=== PATIENT | male | born 1940 | race Caucasian/White ===

== ENCOUNTER 2017-06-10 11:43 | Emergency (ER) | payer OTHER ==
[2017-06-10] MEDS ORDERED: Triple Antibiotic Oint 1 GM Packet ONE (12:44)
== END 2017-06-10 13:05 | disposition home or self-care (01) ==
LOC: NAV ERS 11:43
DX: S61.217A Laceration without foreign body of left little finger without damage to nail, initial encounter (principal); I10 Essential (primary) hypertension; E11.9 Type 2 diabetes mellitus without complications; J45.909 Unspecified asthma, uncomplicated; F41.9 Anxiety disorder, unspecified; F31.9 Bipolar disorder, unspecified; W26.9XXA Contact with unspecified sharp object(s), initial encounter
CPT/HCPCS: 12001

== ENCOUNTER 2019-06-03 20:28 | Emergency (ER) | payer MEDICARE, OTHER ==
[2019-06-03 21:39] LABS: #Basophils 0.1 thou/uL (0.0-0.2); #Eosinphils 0.4 thou/uL (0.0-0.7); #Lymphocytes 1.4 thou/uL (1.20-3.40); #Neutrophils 9.9 thou/uL (1.40-6.50); %Basophils 0.7 % (0.0-1.0); %Eosinophils 3.4 % (0.0-10.0); %Lymphocytes 10.7 % (21.0-51.0); %Neutrophils 77.2 % (42.0-75.0); Hemoglobin 11.9 g/dL (14.0-18.0); Mean Corpuscular HGB CONC 31.8 g/dL (32.0-36.0); Mean Corpuscular Hemoglobin 30.8 pg (27.0-31.0); Mean Corpuscular Volume 96.9 fL (78.0-98.0); Mean Platelet Volume 8.8 fL (7.4-10.4); Platelet Count 147 thou/uL (130-400); RBC Distribution Width 13.1 % (11.5-14.5); Red Blood Cell (RBC) Count 3.86 mill/uL (4.70-6.10); White Blood Cell (WBC) Count 12.9 thou/uL (4.8-10.8)
--- NOTE | 2019-06-03 21:46 | RAD ---
AP view of the pelvis INDICATION: Fall with left inguinal pain COMPARISON: None. FINDINGS: Bones: No acute fracture or subluxation is evident. Bone mineralization appears within normal limits. 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 There is enthesopathic change off the acetab ulum bilaterally. There is mild enthesopathic change off the greater trochanters. SI joints and symphysis pubis: Normal appearing. Intrapelvic contents: Within normal limits. IMPRESSION: No acute osseous abnormality.
--- NOTE | 2019-06-03 21:47 | RAD ---
XR Hip Lt 2-3 View INDICATION: Left hip pain after fall COMPARISON: None FINDINGS: Bones: No acute osseous abnormality. Bone mineralization appears within normal limits. Hip joint: There is moderate degenerative change of the left hip. There is enthesopathic change off t he left acetabulum and left greater trochanter. SI joints and symphysis pubis: Radiographically normal. Intrapelvic contents: Visualized bowel gas pattern is within normal limits. Surrounding soft tissues: Radiographically normal. IMPRESSION: 1. No acute osseous abnormality.
[2019-06-03] MEDS ORDERED: Sodium Chloride 0.9% 1,000 ML ONE (21:49)
[2019-06-03] MEDS ORDERED: Ondansetron PF 4 MG/2 ML Vial ONE (21:49)
[2019-06-03] MEDS ORDERED: Morphine 4 MG/ML VIAL ONE (21:49)
[2019-06-03 21:53] LABS: ALT (SGPT) 17 U/L (8-55); AST (SGOT) 21 U/L (5-34); Alkaline Phosphatase 106 U/L (40-150); Anion Gap 14 mmol/L (10-20); BUN (Urea Nitrogen) 44 mg/dL (8.4-25.7); Bilirubin, Total 0.4 mg/dL (0.2-1.2); Calc. Creatinine Clearance 0 mL/min (70-130); Calcium 8.6 mg/dL (7.8-10.44); Carbon Dioxide 28 mmol/L (23-31); Chloride 102 mmol/L (98-107); Estimated GFR-MDRD 28; Globulin 2.4 g/dL (2.4-3.5); Glucose 161 mg/dL (83-110); Potassium 4.2 mmol/L (3.5-5.1); Protein, Total 6.4 g/dL (5.8-8.1); Sodium 140 mmol/L (136-145)
--- NOTE | 2019-06-03 22:58 | CT ---
CT of the left lower extremity without contrast INDICATION: History of fall COMPARISON: Left hip radiograph dated 06/03/2019 FINDINGS: There is a comminuted, mildly displaced, mildly angulated left mid cervical femoral neck fr acture. There is fracture extension inferiorly through the subtrochanteric femur from the basicervical region. There is diffuse osteopenia. There is moderate degenerative change of both hips. There is enthesopathic change off of the acetabulum and greater trochanters. There is a mild amount of retained stool within the colon. IMPRESSION: 1. Comminuted left femoral neck fracture with extension into the subtrochanteric proximal femoral sha ft. 2. Diffuse osteopenia 3. Moderate degenerative change of the left hip.
== END 2019-06-04 | disposition short-term general hospital (02) ==
LOC: NAV ERS 20:28
DX: S72.22XA Displaced subtrochanteric fracture of left femur, initial encounter for closed fracture (principal); S72.002A Fracture of unspecified part of neck of left femur, initial encounter for closed fracture; N28.9 Disorder of kidney and ureter, unspecified; E78.5 Hyperlipidemia, unspecified; E78.00 Pure hypercholesterolemia, unspecified; E11.9 Type 2 diabetes mellitus without complications; I10 Essential (primary) hypertension; J44.9 Chronic obstructive pulmonary disease, unspecified; F41.9 Anxiety disorder, unspecified; F31.9 Bipolar disorder, unspecified; G47.00 Insomnia, unspecified; Z79.899 Other long term (current) drug therapy; W18.30XA Fall on same level, unspecified, initial encounter
CPT/HCPCS: 72170; 80053; 85025; 93005; 94760; 96361; 96374; 96375; J2270; J2405; J7050

== ENCOUNTER 2019-06-11 16:04 | Inpatient (IN) | payer MEDICARE, OTHER ==
[2019-06-11] MEDS: Methocarbamol 500 MG TAB PO SCH (20:56)
[2019-06-11] MEDS: Cyclobenzaprine 10 MG TAB PO SCH (20:56)
[2019-06-11] MEDS: Ascorbic Acid 500 mg Chewable Tablet PO SCH (20:57)
[2019-06-11] MEDS: hydrALAZINE 25 MG TAB PO SCH (20:57)
[2019-06-11] MEDS: rOPINIRole HCl 1 MG TAB PO SCH (20:57)
[2019-06-11] MEDS: Gabapentin 300 MG CAP PO SCH (20:57)
[2019-06-11] MEDS: Tamsulosin HCl 0.4 MG CAP PO SCH (20:58)
[2019-06-11] MEDS: traMADol HCl 50 MG TAB PO PRN (20:58)
[2019-06-11] MEDS: hydrOXYzine 25 MG TAB PO SCH (20:58)
[2019-06-11] MEDS: Senokot S 8.6-50 MG TAB PO SCH (20:58)
[2019-06-12 05:32] LABS: #Basophils 0.2 thou/uL (0.0-0.2); #Eosinphils 1.3 thou/uL (0.0-0.7); #Lymphocytes 1.2 thou/uL (1.20-3.40); #Monocytes 1.3 thou/uL (0.11-0.59); #Neutrophils 8.8 thou/uL (1.40-6.50); %Basophils 1.9 % (0.0-1.0); %Eosinophils 9.9 % (0.0-10.0); %Lymphocytes 9.6 % (21.0-51.0); %Monocytes 10.2 % (0.0-10.0); %Neutrophils 68.4 % (42.0-75.0); Hemoglobin 8.7 g/dL (14.0-18.0); Mean Corpuscular Hemoglobin 30.2 pg (27.0-31.0); Mean Corpuscular Volume 97.4 fL (78.0-98.0); Mean Platelet Volume 6.6 fL (7.4-10.4); Platelet Count 222 thou/uL (130-400); RBC Distribution Width 14.5 % (11.5-14.5); Red Blood Cell (RBC) Count 2.89 mill/uL (4.70-6.10); White Blood Cell (WBC) Count 12.8 thou/uL (4.8-10.8)
[2019-06-12] MEDS: Levothyroxine Sodium 100 MCG TAB PO SCH (05:33)
[2019-06-12 05:46] LABS: Anion Gap 15 mmol/L (10-20); BUN (Urea Nitrogen) 68 mg/dL (8.4-25.7); Calc. Creatinine Clearance 61 mL/min (70-130); Calcium 8.8 mg/dL (7.8-10.44); Carbon Dioxide 28 mmol/L (23-31); Chloride 101 mmol/L (98-107); Estimated GFR-MDRD 35; Glucose 118 mg/dL (83-110); Sodium 140 mmol/L (136-145)
[2019-06-12] MEDS: Budesonide 0.5 MG/2 ML NEB NEB SCH ×2 (05:54→18:12)
[2019-06-12] MEDS: Allopurinol 100 MG TAB PO SCH (08:56)
[2019-06-12] MEDS: Ferrous Sulfate 325 MG TAB PO SCH ×2 (08:56→18:11)
[2019-06-12] MEDS: Amlodipine 5 MG TAB PO SCH (08:57)
[2019-06-12] MEDS: Aspirin 81 mg Enteric Coated Tablet PO SCH (08:57)
[2019-06-12] MEDS: Ascorbic Acid 500 mg Chewable Tablet PO SCH ×2 (08:57→21:12)
[2019-06-12] MEDS: Citalopram 20 MG TAB PO SCH (08:58)
[2019-06-12] MEDS: Bisacodyl 10 MG SUPP PR SCH (08:58)
[2019-06-12] MEDS: Gabapentin 300 MG CAP PO SCH ×2 (08:59→21:12)
[2019-06-12] MEDS: hydrALAZINE 25 MG TAB PO SCH ×3 (08:59→21:12)
[2019-06-12] MEDS: hydrOXYzine 25 MG TAB PO SCH ×2 (08:59→21:12)
[2019-06-12] MEDS: Furosemide 40 MG TAB PO SCH ×2 (08:59→14:08)
[2019-06-12] MEDS: Cyclobenzaprine 10 MG TAB PO SCH ×2 (08:59→21:12)
[2019-06-12] MEDS: Lantus 1000 UNITS/10 ML VIAL SC SCH (09:00)
[2019-06-12] MEDS ORDERED: Prevnar 13-Val Conj/PF 0.5 ML SYRINGE IM ONE (09:00)
[2019-06-12] MEDS: Isosorbide Mononitrate (ER) 30 MG TAB PO SCH (09:01)
[2019-06-12] MEDS: Methocarbamol 500 MG TAB PO SCH ×3 (09:01→21:11)
[2019-06-12] MEDS: Losartan Potassium 50 MG TAB PO SCH (09:01)
[2019-06-12] MEDS: Senokot S 8.6-50 MG TAB PO SCH ×2 (09:03→21:12)
[2019-06-12] MEDS: Polyethylene Glycol 3350 17 GM Packet PO SCH (09:03)
[2019-06-12] MEDS: traMADol HCl 50 MG TAB PO PRN ×2 (10:33→21:14)
[2019-06-12] MEDS: Acetaminophen 325 MG TAB PO PRN (10:33)
[2019-06-12] MEDS: Enoxaparin Sodium 30 MG/0.3 ML SYRINGE SC SCH (21:11)
[2019-06-12] MEDS: Tamsulosin HCl 0.4 MG CAP PO SCH (21:12)
[2019-06-12] MEDS: rOPINIRole HCl 1 MG TAB PO SCH (21:12)
--- NOTE | 2019-06-12 21:52 | HP ---
CHIEF COMPLAINT: Deconditioning for physical therapy. BRIEF HISTORY: This is a pleasant overweight 79-year-old male, who was admitted to [facility] with left femoral neck fracture with extension into the subtrochanteric proximal femoral shaft, requiring intramedullary nailing and closed reduction and internal fixation. This was after a fall. Postoperatively, he had an episode of aspiration, requiring IMCU stay and since then has needed 4 L of oxygen. He was felt to be a candidate for inpatient rehabilitation and transferred here. He also has history of CPAP and apparently does not tolerate the hospital CPAP. Currently, he is resting in bed and other than being hard of hearing, denies any complaints. He did have physical therapy evaluation this morning. Apparently, there are some weightbearing restrictions on the left foot and it is only physical therapy who was supposed to get him out of bed. No family at bedside. PAST MEDICAL HISTORY: 1. Hypertension. 2. Chronic obstructive pulmonary disease. 3. Obstructive sleep apnea. 4. Hypothyroidism. 5. Depression and anxiety. 6. He also has diabetes mellitus type 2, restless legs syndrome and benign prostatic hypertrophy. PAST SURGICAL HISTORY: Hernia repair. PSYCHOSOCIAL HISTORY: He lives at home with his . He ambulates independently using a cane. Denies any tobacco, alcohol, or recreational drug abuse. ALLERGIES: CODEINE. FAMILY HISTORY: Noncontributory to current admission. REVIEW OF SYSTEMS: CARDIOVASCULAR SYSTEM: Denies any chest pain, shortness of breath, palpitations, PND, orthopnea or pedal edema. RESPIRATORY SYSTEM: Occasional cough. Denies any expectoration. Denies any hemoptysis. Denies any pleuritic type chest pain. GASTROINTESTINAL SYSTEM: Denies any nausea, vomiting, diarrhea, constipation, hematemesis, melena, or hematochezia. GENITOURINARY SYSTEM: Denies any frequency, urgency, dysuria, or hematuria. CENTRAL NERVOUS SYSTEM: Denies any focal numbness, weakness, or fainting spells. He did have a fall recently, which is how he fractured his hip and he is here for therapy. EXTREMITIES: Complains of left hip pain. HEENT: Denies any difficulty with speech or vision. He does have some hardness of hearing. He is supposed to be on a mechanically soft diet. SKIN: Denies any rash. PHYSICAL EXAMINATION: GENERAL: Pleasant 79-year-old male, resting comfortably in bed and denies any concerns. No family at bedside. VITAL SIGNS: He is afebrile. Heart rate 86, respirations 20, oxygen saturation 94% on 4 L nasal cannula, and blood pressure 140/56. HEENT: Normocephalic and atraumatic. Pupils equally reactive to light and accommodation. No JVD, thyromegaly, cervical lymphadenopathy, or throat exudates. No carotid bruits. CARDIOVASCULAR SYSTEM: S1, S2 plus. RESPIRATORY SYSTEM: Normal vesicular breath sounds. ABDOMEN: Soft, nontender. Bowel sounds heard in all quadrants. EXTREMITIES: Without cyanosis or clubbing. Trace left leg edema. Left hip incision with dressing. CENTRAL NERVOUS SYSTEM: Awake and responsive. Generalized weakness. Grossly nonfocal. LABORATORY DATA: Laboratory values done this morning shows white count is 12.8, H and H is 8.7 and 28.2. Sodium 140, potassium 4.0, BUN and creatinine 68 and 1.88. Blood sugars are 120, 140, 118, 111 and 186. IMPRESSION: He also has diabetes mellitus type 2, restless legs syndrome and benign prostatic hypertrophy. PLAN: 1. Continue current discharge medications from previous hospital. 2. 1800 calorie heart healthy ADA diet, but mechanically soft consistency with thin liquids with aspiration precautions. 3. Accu-Cheks a.c. and at bedtime with mild sliding scale coverage. 4. Monitor blood pressure and adjust medications as needed. 5. Titrate oxygen as tolerated. 6. DVT prophylaxis, we will start him on Lovenox. 7. Decubitus precautions. 8. Stress ulcer prophylaxis. 9. Routine laboratory values. 10. Discussed with the patient and nursing in detail. All questions answered. Job ID: [id number]
[2019-06-13] MEDS: Levothyroxine Sodium 100 MCG TAB PO SCH (06:05)
[2019-06-13] MEDS: Budesonide 0.5 MG/2 ML NEB NEB SCH ×2 (06:18→17:38)
[2019-06-13] MEDS: Ferrous Sulfate 325 MG TAB PO SCH ×2 (08:40→17:38)
[2019-06-13] MEDS: Allopurinol 100 MG TAB PO SCH (08:40)
[2019-06-13] MEDS: Amlodipine 5 MG TAB PO SCH (08:41)
[2019-06-13] MEDS: Aspirin 81 mg Enteric Coated Tablet PO SCH (08:42)
[2019-06-13] MEDS: Ascorbic Acid 500 mg Chewable Tablet PO SCH ×2 (08:42→21:08)
[2019-06-13] MEDS: Cyclobenzaprine 10 MG TAB PO SCH ×2 (08:43→21:08)
[2019-06-13] MEDS: Bisacodyl 10 MG SUPP PR SCH (08:43)
[2019-06-13] MEDS: Furosemide 40 MG TAB PO SCH ×2 (08:43→14:33)
[2019-06-13] MEDS: hydrALAZINE 25 MG TAB PO SCH ×3 (08:43→21:08)
[2019-06-13] MEDS: Citalopram 20 MG TAB PO SCH (08:43)
[2019-06-13] MEDS: Gabapentin 300 MG CAP PO SCH ×2 (08:43→21:08)
[2019-06-13] MEDS: hydrOXYzine 25 MG TAB PO SCH ×2 (08:44→21:08)
[2019-06-13] MEDS: Lantus 1000 UNITS/10 ML VIAL SC SCH (08:44)
[2019-06-13] MEDS: Losartan Potassium 50 MG TAB PO SCH (08:45)
[2019-06-13] MEDS: Isosorbide Mononitrate (ER) 30 MG TAB PO SCH (08:45)
[2019-06-13] MEDS: Polyethylene Glycol 3350 17 GM Packet PO SCH (08:46)
[2019-06-13] MEDS: Senokot S 8.6-50 MG TAB PO SCH ×2 (08:46→21:08)
[2019-06-13] MEDS: Methocarbamol 500 MG TAB PO SCH ×3 (08:46→21:08)
--- NOTE | 2019-06-13 15:40 | PRG ---
DATE OF SERVICE: 06/13/2019 SUBJECTIVE: Mr. Marc has been moved to 148. He is resting comfortably. Speech Therapy evaluated him and recommended giving him his pills with applesauce. Continue mechanical soft diet with extra gravy. No family at bedside. Discussed with nursing. OBJECTIVE: VITAL SIGNS: He is afebrile, heart rate 84, respirations 22, oxygen saturation 96% on 4 L, and blood pressure 158/71. CARDIOVASCULAR SYSTEM: S1 and S2 plus. RESPIRATORY SYSTEM: Normal vesicular breath sounds. ABDOMEN: Soft, nontender. Bowel sounds heard in all quadrants. Hip incision is healthy. CENTRAL NERVOUS SYSTEM: Awake and responsive. Generalized weakness. LABORATORY VALUES: Blood sugars are 186, 138, 168, 132, and 173. IMPRESSION: 1. Left femoral neck fracture status post open reduction and internal fixation. 2. Chronic obstructive pulmonary disease. 3. Hypertension. 4. Diabetes mellitus, type 2. 5. Hypothyroidism. 6. Obstructive sleep apnea. 7. Depression and anxiety. 8. Deconditioning. PLAN: 1. Continue physical therapy with orthopedic restrictions. 2. Continue current medications. 3. 1800-calorie heart-healthy ADA diet. 4. Accu-Cheks with sliding scale coverage. 5. Monitor blood pressure and adjust medications as needed. 6. Reinforced compliance with CPAP. 7. Physical therapy. 8. Routine laboratory values. 9. Discussed with the patient and nursing in detail. All questions answered. Job ID: [id number]
[2019-06-13] MEDS: rOPINIRole HCl 1 MG TAB PO SCH (21:08)
[2019-06-13] MEDS: Tamsulosin HCl 0.4 MG CAP PO SCH (21:08)
[2019-06-13] MEDS: Enoxaparin Sodium 30 MG/0.3 ML SYRINGE SC SCH (21:09)
[2019-06-14] MEDS: Levothyroxine Sodium 100 MCG TAB PO SCH (05:49)
[2019-06-14] MEDS: Budesonide 0.5 MG/2 ML NEB NEB SCH ×2 (06:09→18:11)
[2019-06-14] MEDS: Polyethylene Glycol 3350 17 GM Packet PO SCH (08:43)
[2019-06-14] MEDS: Methocarbamol 500 MG TAB PO SCH ×3 (08:46→20:41)
[2019-06-14] MEDS: Ascorbic Acid 500 mg Chewable Tablet PO SCH ×2 (08:58→20:39)
[2019-06-14] MEDS: hydrOXYzine 25 MG TAB PO SCH ×2 (08:59→20:40)
[2019-06-14] MEDS: Citalopram 20 MG TAB PO SCH (08:59)
[2019-06-14] MEDS: Furosemide 40 MG TAB PO SCH ×2 (08:59→14:59)
[2019-06-14] MEDS: Gabapentin 300 MG CAP PO SCH ×2 (08:59→20:40)
[2019-06-14] MEDS: Senokot S 8.6-50 MG TAB PO SCH ×2 (08:59→20:41)
[2019-06-14] MEDS: Amlodipine 5 MG TAB PO SCH (08:59)
[2019-06-14] MEDS: hydrALAZINE 25 MG TAB PO SCH ×3 (08:59→20:40)
[2019-06-14] MEDS: Allopurinol 100 MG TAB PO SCH (09:00)
[2019-06-14] MEDS: Isosorbide Mononitrate (ER) 30 MG TAB PO SCH (09:00)
[2019-06-14] MEDS: Ferrous Sulfate 325 MG TAB PO SCH ×2 (09:00→17:41)
[2019-06-14] MEDS: Aspirin 81 mg Enteric Coated Tablet PO SCH (09:01)
[2019-06-14] MEDS: Bisacodyl 10 MG SUPP PR SCH (09:01)
[2019-06-14] MEDS: Cyclobenzaprine 10 MG TAB PO SCH ×2 (09:01→20:40)
[2019-06-14] MEDS: Losartan Potassium 50 MG TAB PO SCH (09:01)
[2019-06-14] MEDS: Lantus 1000 UNITS/10 ML VIAL SC SCH (09:04)
[2019-06-14] MEDS: Enoxaparin Sodium 30 MG/0.3 ML SYRINGE SC SCH (20:40)
[2019-06-14] MEDS: Tamsulosin HCl 0.4 MG CAP PO SCH (20:41)
[2019-06-14] MEDS: rOPINIRole HCl 1 MG TAB PO SCH (20:41)
[2019-06-15] MEDS: Budesonide 0.5 MG/2 ML NEB NEB SCH ×2 (05:49→18:04)
[2019-06-15] MEDS: Levothyroxine Sodium 100 MCG TAB PO SCH (05:49)
[2019-06-15] MEDS ORDERED: HumaLOG 300 UNITS/3 ML VIAL SC PRN (06:31)
[2019-06-15] MEDS ORDERED: Dextrose 5% in Water 1,000 ML IV PRN (06:31)
[2019-06-15] MEDS ORDERED: Dextrose 50% Abboject 50 ML SYRINGE IVP PRN (06:32)
[2019-06-15] MEDS: Polyethylene Glycol 3350 17 GM Packet PO SCH (08:38)
[2019-06-15] MEDS: Citalopram 20 MG TAB PO SCH (08:39)
[2019-06-15] MEDS: Amlodipine 5 MG TAB PO SCH (08:39)
[2019-06-15] MEDS: Allopurinol 100 MG TAB PO SCH (08:39)
[2019-06-15] MEDS: Methocarbamol 500 MG TAB PO SCH ×3 (08:40→21:14)
[2019-06-15] MEDS: Gabapentin 300 MG CAP PO SCH ×2 (08:40→21:14)
[2019-06-15] MEDS: Ascorbic Acid 500 mg Chewable Tablet PO SCH ×2 (08:40→21:14)
[2019-06-15] MEDS: Cyclobenzaprine 10 MG TAB PO SCH ×2 (08:40→21:14)
[2019-06-15] MEDS: Isosorbide Mononitrate (ER) 30 MG TAB PO SCH (08:40)
[2019-06-15] MEDS: Aspirin 81 mg Enteric Coated Tablet PO SCH (08:40)
[2019-06-15] MEDS: Senokot S 8.6-50 MG TAB PO SCH ×2 (08:40→21:14)
[2019-06-15] MEDS: hydrALAZINE 25 MG TAB PO SCH ×3 (08:40→21:16)
[2019-06-15] MEDS: Losartan Potassium 50 MG TAB PO SCH (08:40)
[2019-06-15] MEDS: Ferrous Sulfate 325 MG TAB PO SCH ×2 (08:41→17:20)
[2019-06-15] MEDS: hydrOXYzine 25 MG TAB PO SCH ×2 (08:41→21:14)
[2019-06-15] MEDS: Furosemide 40 MG TAB PO SCH ×2 (08:41→14:30)
[2019-06-15] MEDS: Lantus 1000 UNITS/10 ML VIAL SC SCH (08:44)
[2019-06-15] MEDS: Bisacodyl 10 MG SUPP PR SCH (09:22)
--- NOTE | 2019-06-15 13:32 | PRG ---
DATE OF SERVICE: 06/15/2019 SUBJECTIVE: Mr. Marc is up in bed and denies any complaints. He is eating his lunch. He is having occasional coughing spells. Denies any fever or chills. He did have a T-max of 100 apparently yesterday. OBJECTIVE: VITAL SIGNS: Currently, he is afebrile with a temperature of 97.3, pulse 79, respirations 18, oxygen saturation 94% on 2.5 L, and blood pressure 146/65. CARDIOVASCULAR: S1 and S2 plus. RESPIRATORY: Normal vesicular breath sounds with decreased air entry in the bases. ABDOMEN: Soft, nontender, obese. Bowel sounds heard in all quadrants. EXTREMITIES: Without cyanosis or clubbing. Trace edema. SKIN: Left hip incision with dressing. CENTRAL NERVOUS SYSTEM: Awake and responsive. Generalized weakness. LABORATORY VALUES: Blood sugars are 157, 153, 113, and 180. IMPRESSION: 1. Left hip fracture, status post open reduction and internal fixation. 2. Chronic obstructive pulmonary disease. 3. Respiratory failure, possibly chronic. 4. Diabetes mellitus, type 2. 5. Hypothyroidism. 6. Obstructive sleep apnea. 7. Depression and anxiety. 8. Deconditioning. PLAN: 1. Continue current medications. 2. 1800-calorie heart healthy ADA diet. 3. Accu-Cheks with sliding scale coverage. 4. Titrate oxygen as tolerated. 5. DVT prophylaxis. 6. Decubitus precaution. 7. Stress ulcer prophylaxis. 8. Aspiration precautions. 9. Physical therapy. 10. Discussed with the patient in detail. All questions answered. Job ID: [id number]
[2019-06-15] MEDS: Enoxaparin Sodium 30 MG/0.3 ML SYRINGE SC SCH (21:14)
[2019-06-15] MEDS: rOPINIRole HCl 1 MG TAB PO SCH (21:14)
[2019-06-15] MEDS: Tamsulosin HCl 0.4 MG CAP PO SCH (21:14)
[2019-06-16] MEDS: Levothyroxine Sodium 100 MCG TAB PO SCH (05:40)
[2019-06-16] MEDS: Budesonide 0.5 MG/2 ML NEB NEB SCH ×2 (06:03→17:53)
[2019-06-16] MEDS: Ferrous Sulfate 325 MG TAB PO SCH ×2 (08:55→17:51)
[2019-06-16] MEDS: Allopurinol 100 MG TAB PO SCH (08:56)
[2019-06-16] MEDS: Amlodipine 5 MG TAB PO SCH (08:57)
[2019-06-16] MEDS: Bisacodyl 10 MG SUPP PR SCH (08:58)
[2019-06-16] MEDS: Ascorbic Acid 500 mg Chewable Tablet PO SCH ×2 (08:58→20:18)
[2019-06-16] MEDS: Citalopram 20 MG TAB PO SCH (08:58)
[2019-06-16] MEDS: Aspirin 81 mg Enteric Coated Tablet PO SCH (08:58)
[2019-06-16] MEDS: Cyclobenzaprine 10 MG TAB PO SCH ×2 (08:59→20:18)
[2019-06-16] MEDS: Furosemide 40 MG TAB PO SCH ×2 (08:59→14:31)
[2019-06-16] MEDS: Gabapentin 300 MG CAP PO SCH ×2 (08:59→20:19)
[2019-06-16] MEDS: hydrOXYzine 25 MG TAB PO SCH ×2 (09:00→20:19)
[2019-06-16] MEDS: hydrALAZINE 25 MG TAB PO SCH ×3 (09:00→20:19)
[2019-06-16] MEDS: Isosorbide Mononitrate (ER) 30 MG TAB PO SCH (09:01)
[2019-06-16] MEDS: Lantus 1000 UNITS/10 ML VIAL SC SCH (09:01)
[2019-06-16] MEDS: Methocarbamol 500 MG TAB PO SCH ×3 (09:02→20:19)
[2019-06-16] MEDS: Losartan Potassium 50 MG TAB PO SCH (09:02)
[2019-06-16] MEDS: Senokot S 8.6-50 MG TAB PO SCH ×2 (09:03→20:20)
[2019-06-16] MEDS: Polyethylene Glycol 3350 17 GM Packet PO SCH (09:03)
--- NOTE | 2019-06-16 14:43 | PRG ---
DATE OF SERVICE: 06/16/2019 SUBJECTIVE: Mr. Marc is up in bed and denies any complaints. His daughter is in the room. He is happy with his progress. He does notice a dry rash to both of his shins. He apparently has this off and on, looks eczematous. OBJECTIVE: VITAL SIGNS: He is afebrile. Heart rate 81, respirations 22, oxygen saturation 94% on 2 L, blood pressure 127/60. CARDIOVASCULAR SYSTEM: S1 and S2 plus. RESPIRATORY SYSTEM: Normal vesicular breath sounds. ABDOMEN: Soft, obese, nontender. Bowel sounds heard in all quadrants. EXTREMITIES: Without cyanosis or clubbing. Trace edema. Bilateral stasis dermatitis with some eczematous changes noted. CENTRAL NERVOUS SYSTEM: Awake and responsive. Generalized weakness. IMPRESSION: 1. Eczematous dermatitis to both extremities. 2. Left hip fracture, status post open reduction and internal fixation. 3. Hypertension. 4. Depression. 5. Deconditioning. 6. Acute hypoxemic respiratory failure, improving. 7. Recent aspiration. 8. Hypothyroidism. 9. Diabetes mellitus. PLAN: 1. Continue current medications. 2. Nutritional support. 3. Aspiration precautions. 4. Accu-Cheks with sliding scale coverage. 5. DVT prophylaxis. 6. Betamethasone cream to rash to both extremities. 7. Physical therapy. 8. Discussed with the patient and daughter in detail. All questions answered. Job ID: [id number]
[2019-06-16] MEDS: HumaLOG 300 UNITS/3 ML VIAL SC PRN (17:52)
[2019-06-16] MEDS: Betamethasone Val 0.1% OINT 15 GM TUBE TOP SCH (20:18)
[2019-06-16] MEDS: Enoxaparin Sodium 30 MG/0.3 ML SYRINGE SC SCH (20:18)
[2019-06-16] MEDS: rOPINIRole HCl 1 MG TAB PO SCH (20:20)
[2019-06-16] MEDS: Tamsulosin HCl 0.4 MG CAP PO SCH (20:20)
[2019-06-17] MEDS: Levothyroxine Sodium 100 MCG TAB PO SCH (05:42)
[2019-06-17] MEDS: Budesonide 0.5 MG/2 ML NEB NEB SCH ×2 (05:42→17:17)
[2019-06-17] MEDS: Allopurinol 100 MG TAB PO SCH (08:18)
[2019-06-17] MEDS: Ferrous Sulfate 325 MG TAB PO SCH ×2 (08:18→17:15)
[2019-06-17] MEDS: Amlodipine 5 MG TAB PO SCH (08:19)
[2019-06-17] MEDS: Ascorbic Acid 500 mg Chewable Tablet PO SCH ×2 (08:20→21:15)
[2019-06-17] MEDS: Aspirin 81 mg Enteric Coated Tablet PO SCH (08:20)
[2019-06-17] MEDS: Betamethasone Val 0.1% OINT 15 GM TUBE TOP SCH ×2 (08:20→21:24)
[2019-06-17] MEDS: hydrALAZINE 25 MG TAB PO SCH ×3 (08:22→21:15)
[2019-06-17] MEDS: Cyclobenzaprine 10 MG TAB PO SCH ×2 (08:22→21:15)
[2019-06-17] MEDS: Citalopram 20 MG TAB PO SCH (08:22)
[2019-06-17] MEDS: Furosemide 40 MG TAB PO SCH ×2 (08:22→14:55)
[2019-06-17] MEDS: Bisacodyl 10 MG SUPP PR SCH (08:22)
[2019-06-17] MEDS: Gabapentin 300 MG CAP PO SCH ×2 (08:22→21:15)
[2019-06-17] MEDS: Isosorbide Mononitrate (ER) 30 MG TAB PO SCH (08:23)
[2019-06-17] MEDS: Lantus 1000 UNITS/10 ML VIAL SC SCH (08:23)
[2019-06-17] MEDS: hydrOXYzine 25 MG TAB PO SCH ×2 (08:23→21:15)
[2019-06-17] MEDS: Losartan Potassium 50 MG TAB PO SCH (08:24)
[2019-06-17] MEDS: Methocarbamol 500 MG TAB PO SCH ×3 (08:24→21:14)
[2019-06-17] MEDS: Senokot S 8.6-50 MG TAB PO SCH ×2 (08:25→21:16)
[2019-06-17] MEDS: Polyethylene Glycol 3350 17 GM Packet PO SCH (08:25)
[2019-06-17] MEDS: traMADol HCl 50 MG TAB PO PRN ×2 (08:27→17:16)
[2019-06-17] MEDS: Acetaminophen 325 MG TAB PO PRN (08:28)
[2019-06-17] MEDS: HumaLOG 300 UNITS/3 ML VIAL SC PRN (12:08)
--- NOTE | 2019-06-17 13:59 | PRG ---
DATE OF SERVICE: 06/17/2019 SUBJECTIVE: Mr. Marc is doing the same. Denies any complaints. His daughter is with him. He is happy with his progress, but he still says that his left leg is weak. I assured him that is the main reason he is here and to just keep working with therapy. OBJECTIVE: VITAL SIGNS: He is afebrile, heart rate 87, respirations 20, oxygen saturation 94% on 2 L, blood pressure 136/64. CARDIOVASCULAR: S1 and S2 plus. RESPIRATORY: Normal vesicular breath sounds. ABDOMEN: Soft, obese, and nontender. Bowel sounds heard in all quadrants. EXTREMITIES: Without cyanosis or clubbing. Stasis dermatitis to both legs with some eczematous changes. CENTRAL NERVOUS SYSTEM: Awake and responsive. Generalized weakness. LABORATORY DATA: Blood sugars are 160, 161, 133, and 165. IMPRESSION: 1. Left hip fracture, status post surgery. 2. Aspiration resulting in acute respiratory failure with hypoxemia, slowly improving. 3. Diabetes mellitus, type 2. 4. Eczematous dermatitis to lower extremities. 5. Hypertension. 6. Benign prostatic hypertrophy. 7. Improving deconditioning. PLAN: 1. Continue current medications. 2. 1800-calorie heart-healthy ADA diet. 3. Accu-Cheks with sliding scale coverage. 4. DVT prophylaxis with Lovenox. 5. Decubitus precautions. 6. Stress ulcer prophylaxis. 7. Physical therapy. 8. Recheck CBC and BMP in the morning. Job ID: [id number]
[2019-06-17] MEDS: Enoxaparin Sodium 30 MG/0.3 ML SYRINGE SC SCH (21:13)
[2019-06-17] MEDS: Tamsulosin HCl 0.4 MG CAP PO SCH (21:15)
[2019-06-17] MEDS: rOPINIRole HCl 1 MG TAB PO SCH (21:15)
[2019-06-18] MEDS: Levothyroxine Sodium 100 MCG TAB PO SCH (05:33)
[2019-06-18 05:54] LABS: #Basophils 0.2 thou/uL (0.0-0.2); #Eosinphils 1.2 thou/uL (0.0-0.7); #Lymphocytes 1.4 thou/uL (1.20-3.40); #Monocytes 1.2 thou/uL (0.11-0.59); #Neutrophils 6.7 thou/uL (1.40-6.50); %Basophils 1.7 % (0.0-1.0); %Eosinophils 11.2 % (0.0-10.0); %Lymphocytes 13.3 % (21.0-51.0); %Monocytes 10.8 % (0.0-10.0); %Neutrophils 62.9 % (42.0-75.0); Hemoglobin 8.4 g/dL (14.0-18.0); Mean Corpuscular HGB CONC 30.7 g/dL (32.0-36.0); Mean Corpuscular Hemoglobin 30.4 pg (27.0-31.0); Mean Corpuscular Volume 98.9 fL (78.0-98.0); Mean Platelet Volume 6.5 fL (7.4-10.4); Platelet Count 277 thou/uL (130-400); RBC Distribution Width 15.3 % (11.5-14.5); Red Blood Cell (RBC) Count 2.76 mill/uL (4.70-6.10); White Blood Cell (WBC) Count 10.7 thou/uL (4.8-10.8)
[2019-06-18] MEDS: Budesonide 0.5 MG/2 ML NEB NEB SCH ×2 (05:57→18:20)
[2019-06-18 06:07] LABS: Anion Gap 16 mmol/L (10-20); BUN (Urea Nitrogen) 55 mg/dL (8.4-25.7); Calc. Creatinine Clearance 55 mL/min (70-130); Calcium 8.6 mg/dL (7.8-10.44); Carbon Dioxide 28 mmol/L (23-31); Chloride 104 mmol/L (98-107); Estimated GFR-MDRD 31; Glucose 113 mg/dL (83-110); Potassium 3.6 mmol/L (3.5-5.1); Sodium 144 mmol/L (136-145)
[2019-06-18] MEDS: Isosorbide Mononitrate (ER) 30 MG TAB PO SCH (08:52)
[2019-06-18] MEDS: Gabapentin 300 MG CAP PO SCH ×2 (08:52→21:00)
[2019-06-18] MEDS: Methocarbamol 500 MG TAB PO SCH ×3 (08:52→20:59)
[2019-06-18] MEDS: Amlodipine 5 MG TAB PO SCH (08:53)
[2019-06-18] MEDS: Furosemide 40 MG TAB PO SCH ×2 (08:53→14:41)
[2019-06-18] MEDS: Citalopram 20 MG TAB PO SCH (08:53)
[2019-06-18] MEDS: Ascorbic Acid 500 mg Chewable Tablet PO SCH ×2 (08:54→21:00)
[2019-06-18] MEDS: Allopurinol 100 MG TAB PO SCH (08:54)
[2019-06-18] MEDS: Ferrous Sulfate 325 MG TAB PO SCH ×2 (08:54→17:09)
[2019-06-18] MEDS: Losartan Potassium 50 MG TAB PO SCH (08:54)
[2019-06-18] MEDS: Cyclobenzaprine 10 MG TAB PO SCH ×2 (08:54→21:00)
[2019-06-18] MEDS: hydrALAZINE 25 MG TAB PO SCH ×3 (08:54→21:00)
[2019-06-18] MEDS: Betamethasone Val 0.1% OINT 15 GM TUBE TOP SCH ×2 (08:55→20:59)
[2019-06-18] MEDS: hydrOXYzine 25 MG TAB PO SCH ×2 (08:55→21:00)
[2019-06-18] MEDS: Aspirin 81 mg Enteric Coated Tablet PO SCH (08:55)
[2019-06-18] MEDS: Lantus 1000 UNITS/10 ML VIAL SC SCH (08:56)
[2019-06-18] MEDS: Bisacodyl 10 MG SUPP PR SCH (09:37)
[2019-06-18] MEDS: Polyethylene Glycol 3350 17 GM Packet PO SCH (09:38)
[2019-06-18] MEDS: Senokot S 8.6-50 MG TAB PO SCH ×2 (09:38→21:01)
--- NOTE | 2019-06-18 09:38 | PRG ---
DATE OF SERVICE: 06/18/2019 SUBJECTIVE: Mr. Marc is doing the same. He is working with therapy. Discussed with nursing. No concerns or questions except his significant deconditioning. OBJECTIVE: VITAL SIGNS: He is afebrile, heart rate 83, respirations 20, oxygen saturation 94% on 2 L via nasal cannula, and blood pressure 129/60. CARDIOVASCULAR SYSTEM: S1 and S2 plus. RESPIRATORY SYSTEM: Normal vesicular breath sounds. ABDOMEN: Soft, obese, and nontender. Bowel sounds heard in all quadrants. EXTREMITIES: Without cyanosis or clubbing. Chronic stasis dermatitis with some eczematous changes. Left hip incision is healthy. CENTRAL NERVOUS SYSTEM: Awake and responsive. Generalized weakness. Grossly nonfocal. IMPRESSION: 1. Left hip fracture, status post open reduction and internal fixation. 2. Recent aspiration with acute hypoxemic respiratory failure, improving. 3. Venous insufficiency with stasis dermatitis and eczematous changes. 4. Diabetes mellitus, type 2. 5. Hypertension. 6. Benign prostatic hypertrophy. PLAN: 1. Continue current medications. 2. 1800 calorie heart healthy ADA diet. 3. Titrate oxygen. 4. Accu-Cheks with sliding scale coverage. 5. DVT prophylaxis with Lovenox. 6. Orthopedic precautions. 7. Continue physical therapy. 8. Discussed with the patient and nursing in detail and all questions answered. Job ID: [id number]
[2019-06-18] MEDS: HumaLOG 300 UNITS/3 ML VIAL SC PRN ×2 (11:52→17:09)
[2019-06-18] MEDS: Tamsulosin HCl 0.4 MG CAP PO SCH (21:00)
[2019-06-18] MEDS: rOPINIRole HCl 1 MG TAB PO SCH (21:00)
[2019-06-18] MEDS: Enoxaparin Sodium 30 MG/0.3 ML SYRINGE SC SCH (21:01)
[2019-06-19] MEDS: Budesonide 0.5 MG/2 ML NEB NEB SCH ×2 (05:42→18:06)
[2019-06-19] MEDS: Levothyroxine Sodium 100 MCG TAB PO SCH (05:42)
[2019-06-19] MEDS: Ferrous Sulfate 325 MG TAB PO SCH ×2 (09:02→16:48)
[2019-06-19] MEDS: Allopurinol 100 MG TAB PO SCH (09:02)
[2019-06-19] MEDS: Ascorbic Acid 500 mg Chewable Tablet PO SCH ×2 (09:02→21:00)
[2019-06-19] MEDS: Methocarbamol 500 MG TAB PO SCH ×3 (09:02→20:59)
[2019-06-19] MEDS: Amlodipine 5 MG TAB PO SCH (09:02)
[2019-06-19] MEDS: Losartan Potassium 50 MG TAB PO SCH (09:03)
[2019-06-19] MEDS: Isosorbide Mononitrate (ER) 30 MG TAB PO SCH (09:03)
[2019-06-19] MEDS: Aspirin 81 mg Enteric Coated Tablet PO SCH (09:03)
[2019-06-19] MEDS: hydrALAZINE 25 MG TAB PO SCH ×3 (09:03→21:01)
[2019-06-19] MEDS: Cyclobenzaprine 10 MG TAB PO SCH ×2 (09:03→21:01)
[2019-06-19] MEDS: Furosemide 40 MG TAB PO SCH ×2 (09:03→14:41)
[2019-06-19] MEDS: hydrOXYzine 25 MG TAB PO SCH ×2 (09:03→21:01)
[2019-06-19] MEDS: Citalopram 20 MG TAB PO SCH (09:03)
[2019-06-19] MEDS: Gabapentin 300 MG CAP PO SCH ×2 (09:03→21:00)
[2019-06-19] MEDS: Betamethasone Val 0.1% OINT 15 GM TUBE TOP SCH ×2 (09:04→21:02)
[2019-06-19] MEDS: Lantus 1000 UNITS/10 ML VIAL SC SCH (09:04)
[2019-06-19] MEDS: Bisacodyl 10 MG SUPP PR SCH (09:48)
[2019-06-19] MEDS: Polyethylene Glycol 3350 17 GM Packet PO SCH (09:48)
[2019-06-19] MEDS: Senokot S 8.6-50 MG TAB PO SCH ×2 (09:49→21:02)
--- NOTE | 2019-06-19 14:54 | PRG ---
DATE OF SERVICE: 06/19/2019 SUBJECTIVE: Mr. Marc is doing well. He is resting in bed after lunch. He states that he is really not interested in watching football. His leg rash is improving. He denies any questions or concerns. No family at bedside. OBJECTIVE: VITAL SIGNS: He is afebrile, heart rate 83, respirations 20, and oxygen saturation 95% on 2 L. Last blood pressure document is from yesterday evening and it is 135/64. CARDIOVASCULAR SYSTEM: S1 and S2 plus. RESPIRATORY SYSTEM: Normal vesicular breath sounds. ABDOMEN: Soft, obese, and nontender. Bowel sounds heard in all quadrants. EXTREMITIES: Chronic venous stasis with stasis dermatitis and eczematous changes improving with steroid cream. CENTRAL NERVOUS SYSTEM: Awake and responsive. Generalized weakness. LABORATORY DATA: Blood sugars are 151, 164, 180, 114, and 128. IMPRESSION: 1. Left femur fracture, status post open reduction and internal fixation. 2. Aspiration pneumonia with acute hypoxemic respiratory failure, improving. 3. Venous insufficiency with stasis dermatitis, chronic. 4. Diabetes mellitus, type 2. 5. Hypertension. 6. Benign prostatic hypertrophy. 7. Deconditioning. PLAN: 1. Continue current medications. 2. An 1800-calorie heart healthy ADA diet. 3. Titrate oxygen as tolerated. 4. Accu-Cheks with sliding-scale coverage. 5. DVT prophylaxis with Lovenox. 6. Orthopedic precautions. 7. Continue rash care with topical steroids. 8. Physical therapy. 9. Routine laboratory values. 10. Discussed with the patient and nursing in detail. All questions answered. Job ID: [id number]
[2019-06-19] MEDS: HumaLOG 300 UNITS/3 ML VIAL SC PRN (16:48)
[2019-06-19] MEDS: Tamsulosin HCl 0.4 MG CAP PO SCH (21:00)
[2019-06-19] MEDS: rOPINIRole HCl 1 MG TAB PO SCH (21:00)
[2019-06-19] MEDS: Enoxaparin Sodium 30 MG/0.3 ML SYRINGE SC SCH (21:02)
[2019-06-20] MEDS: Budesonide 0.5 MG/2 ML NEB NEB SCH ×2 (05:46→17:41)
[2019-06-20] MEDS: Levothyroxine Sodium 100 MCG TAB PO SCH (05:46)
[2019-06-20] MEDS: Allopurinol 100 MG TAB PO SCH (08:42)
[2019-06-20] MEDS: hydrALAZINE 25 MG TAB PO SCH ×3 (08:42→21:18)
[2019-06-20] MEDS: Ferrous Sulfate 325 MG TAB PO SCH ×2 (08:42→17:40)
[2019-06-20] MEDS: Methocarbamol 500 MG TAB PO SCH ×3 (08:43→21:16)
[2019-06-20] MEDS: Isosorbide Mononitrate (ER) 30 MG TAB PO SCH (08:43)
[2019-06-20] MEDS: Amlodipine 5 MG TAB PO SCH (08:43)
[2019-06-20] MEDS: Ascorbic Acid 500 mg Chewable Tablet PO SCH ×2 (08:43→21:17)
[2019-06-20] MEDS: Losartan Potassium 50 MG TAB PO SCH (08:43)
[2019-06-20] MEDS: Aspirin 81 mg Enteric Coated Tablet PO SCH (08:43)
[2019-06-20] MEDS: hydrOXYzine 25 MG TAB PO SCH ×2 (08:43→21:17)
[2019-06-20] MEDS: Lantus 1000 UNITS/10 ML VIAL SC SCH (08:44)
[2019-06-20] MEDS: Gabapentin 300 MG CAP PO SCH ×2 (08:44→21:18)
[2019-06-20] MEDS: Betamethasone Val 0.1% OINT 15 GM TUBE TOP SCH ×2 (08:44→21:16)
[2019-06-20] MEDS: Furosemide 40 MG TAB PO SCH ×2 (08:44→14:56)
[2019-06-20] MEDS: Citalopram 20 MG TAB PO SCH (08:44)
[2019-06-20] MEDS: Cyclobenzaprine 10 MG TAB PO SCH ×2 (08:44→21:18)
[2019-06-20] MEDS: Bisacodyl 10 MG SUPP PR SCH (09:39)
[2019-06-20] MEDS: Polyethylene Glycol 3350 17 GM Packet PO SCH (09:39)
[2019-06-20] MEDS: Senokot S 8.6-50 MG TAB PO SCH ×2 (09:40→21:18)
[2019-06-20] MEDS: HumaLOG 300 UNITS/3 ML VIAL SC PRN (12:04)
--- NOTE | 2019-06-20 16:03 | PRG ---
DATE OF SERVICE: 06/20/2019 SUBJECTIVE: Mr. Marc is resting in bed. He is just finished his lunch and enjoying a Western movie. Denies any questions or concerns. No family at bedside. OBJECTIVE: VITAL SIGNS: He is afebrile, heart rate 88, respirations 18, oxygen saturation 95% 2 L, and blood pressure 131/57. CARDIOVASCULAR SYSTEM: S1 and S2 plus. RESPIRATORY SYSTEM: Normal vesicular breath sounds. ABDOMEN: Soft, obese, nontender. Bowel sounds heard in all quadrants. EXTREMITIES: Without cyanosis or clubbing. Chronic stasis dermatitis. CENTRAL NERVOUS SYSTEM: Awake and responsive. Generalized weakness. IMPRESSION: 1. Acute hypoxemic respiratory failure. 2. Left femur fracture, status post open reduction and internal fixation. 3. Venous insufficiency with stasis dermatitis, chronic. 4. Diabetes mellitus, type 2. 5. Hypertension. 6. Deconditioning. 7. Benign prostatic hypertrophy. PLAN: 1. Continue current medications. 2. 1800 calorie heart healthy ADA diet. 3. Accu-Cheks with sliding scale coverage. 4. DVT and stress ulcer prophylaxis. 5. Decubitus precautions. 6. Physical therapy. 7. Titrate oxygen. 8. Discussed with the patient and nursing. Job ID: [id number]
[2019-06-20] MEDS: Enoxaparin Sodium 30 MG/0.3 ML SYRINGE SC SCH (21:16)
[2019-06-20] MEDS: rOPINIRole HCl 1 MG TAB PO SCH (21:17)
[2019-06-20] MEDS: Tamsulosin HCl 0.4 MG CAP PO SCH (21:17)
[2019-06-21] MEDS: Levothyroxine Sodium 100 MCG TAB PO SCH (05:17)
[2019-06-21] MEDS: Budesonide 0.5 MG/2 ML NEB NEB SCH ×2 (05:19→17:11)
[2019-06-21] MEDS: Ferrous Sulfate 325 MG TAB PO SCH ×2 (09:18→17:10)
[2019-06-21] MEDS: Allopurinol 100 MG TAB PO SCH (09:18)
[2019-06-21] MEDS: Betamethasone Val 0.1% OINT 15 GM TUBE TOP SCH ×2 (09:20→20:49)
[2019-06-21] MEDS: Amlodipine 5 MG TAB PO SCH (09:20)
[2019-06-21] MEDS: Ascorbic Acid 500 mg Chewable Tablet PO SCH ×2 (09:20→20:51)
[2019-06-21] MEDS: Aspirin 81 mg Enteric Coated Tablet PO SCH (09:20)
[2019-06-21] MEDS: Furosemide 40 MG TAB PO SCH ×2 (09:21→14:12)
[2019-06-21] MEDS: hydrALAZINE 25 MG TAB PO SCH ×3 (09:21→20:50)
[2019-06-21] MEDS: Gabapentin 300 MG CAP PO SCH ×2 (09:21→20:51)
[2019-06-21] MEDS: Cyclobenzaprine 10 MG TAB PO SCH ×2 (09:21→20:51)
[2019-06-21] MEDS: Citalopram 20 MG TAB PO SCH (09:21)
[2019-06-21] MEDS: Bisacodyl 10 MG SUPP PR SCH (09:21)
[2019-06-21] MEDS: Isosorbide Mononitrate (ER) 30 MG TAB PO SCH (09:22)
[2019-06-21] MEDS: hydrOXYzine 25 MG TAB PO SCH ×2 (09:22→20:51)
[2019-06-21] MEDS: Lantus 1000 UNITS/10 ML VIAL SC SCH (09:22)
[2019-06-21] MEDS: Methocarbamol 500 MG TAB PO SCH ×3 (09:23→20:50)
[2019-06-21] MEDS: Losartan Potassium 50 MG TAB PO SCH (09:23)
[2019-06-21] MEDS: Senokot S 8.6-50 MG TAB PO SCH ×2 (09:23→20:51)
[2019-06-21] MEDS: Polyethylene Glycol 3350 17 GM Packet PO SCH (09:23)
--- NOTE | 2019-06-21 12:45 | PRG ---
DATE OF SERVICE: 06/21/2019 SUBJECTIVE: Mr. Marc is doing well. He apparently walked around in the hallways twice. He denies any chest pain or shortness of breath. Denies any lightheadedness or dizziness. No family at bedside. OBJECTIVE: VITAL SIGNS: He is afebrile, heart rate 85, respirations 22, oxygen saturation 96% on 2 L, and blood pressure 149/65. CARDIOVASCULAR SYSTEM: S1 and S2 plus. RESPIRATORY SYSTEM: Normal vesicular breath sounds. ABDOMEN: Soft, obese, and nontender. Bowel sounds heard in all quadrants. EXTREMITIES: Without cyanosis or clubbing. Chronic venous stasis with stasis dermatitis. LABORATORY DATA: Blood sugars are 155, 140, 186, and 109. IMPRESSION: 1. Left hip fracture, status post open reduction and internal fixation. 2. Aspiration with acute hypoxemic respiratory failure, improving. 3. Venous insufficiency with stasis dermatitis. 4. Diabetes mellitus, type 2, well controlled. 5. Hypertension. 6. Deconditioning. 7. BPH. PLAN: 1. Continue current medications. 2. 1800-calorie heart healthy ADA diet. 3. Accu-Cheks with sliding scale coverage. 4. DVT and stress ulcer prophylaxis. 5. Decubitus precautions. 6. Continue physical therapy. 7. Titrate oxygen of room air saturation greater than 92%. Job ID: [id number]
[2019-06-21] MEDS: Enoxaparin Sodium 30 MG/0.3 ML SYRINGE SC SCH (20:49)
[2019-06-21] MEDS: Tamsulosin HCl 0.4 MG CAP PO SCH (20:51)
[2019-06-21] MEDS: rOPINIRole HCl 1 MG TAB PO SCH (20:51)
[2019-06-22] MEDS: Levothyroxine Sodium 100 MCG TAB PO SCH (05:30)
[2019-06-22] MEDS: Budesonide 0.5 MG/2 ML NEB NEB SCH ×2 (05:31→17:40)
[2019-06-22] MEDS: Ferrous Sulfate 325 MG TAB PO SCH ×2 (08:25→17:40)
[2019-06-22] MEDS: Allopurinol 100 MG TAB PO SCH (08:26)
[2019-06-22] MEDS: Amlodipine 5 MG TAB PO SCH (08:27)
[2019-06-22] MEDS: Ascorbic Acid 500 mg Chewable Tablet PO SCH ×2 (08:27→20:56)
[2019-06-22] MEDS: Bisacodyl 10 MG SUPP PR SCH (08:28)
[2019-06-22] MEDS: Citalopram 20 MG TAB PO SCH (08:28)
[2019-06-22] MEDS: Betamethasone Val 0.1% OINT 15 GM TUBE TOP SCH ×2 (08:28→20:57)
[2019-06-22] MEDS: Aspirin 81 mg Enteric Coated Tablet PO SCH (08:28)
[2019-06-22] MEDS: Furosemide 40 MG TAB PO SCH ×2 (08:29→14:10)
[2019-06-22] MEDS: hydrOXYzine 25 MG TAB PO SCH ×2 (08:29→20:55)
[2019-06-22] MEDS: Cyclobenzaprine 10 MG TAB PO SCH ×2 (08:29→20:56)
[2019-06-22] MEDS: Gabapentin 300 MG CAP PO SCH ×2 (08:29→20:56)
[2019-06-22] MEDS: hydrALAZINE 25 MG TAB PO SCH ×3 (08:29→20:56)
[2019-06-22] MEDS: Losartan Potassium 50 MG TAB PO SCH (08:30)
[2019-06-22] MEDS: Methocarbamol 500 MG TAB PO SCH ×3 (08:30→20:55)
[2019-06-22] MEDS: Lantus 1000 UNITS/10 ML VIAL SC SCH (08:30)
[2019-06-22] MEDS: Isosorbide Mononitrate (ER) 30 MG TAB PO SCH (08:30)
[2019-06-22] MEDS: Polyethylene Glycol 3350 17 GM Packet PO SCH (08:31)
[2019-06-22] MEDS: Senokot S 8.6-50 MG TAB PO SCH ×2 (08:32→20:57)
--- NOTE | 2019-06-22 13:15 | PRG ---
DATE OF SERVICE: 06/22/2019 SUBJECTIVE: Mr. Marc is up in his chair and just finished his lunch. He denies any questions or concerns. He is happy with his progress. He is hoping to get home soon. OBJECTIVE: VITAL SIGNS: He is afebrile. Heart rate 84, respirations 18, oxygen saturation 98% on 1.5 L, and blood pressure 142/65. CARDIOVASCULAR: S1 and S2 plus. RESPIRATORY: Normal vesicular breath sounds. ABDOMEN: Soft, obese, nontender. Bowel sounds are heard in all quadrants. EXTREMITIES: Without cyanosis or clubbing. Chronic venous stasis with stasis dermatitis. CENTRAL NERVOUS SYSTEM: Awake and responsive. Generalized weakness. LABORATORY VALUES: Blood sugars are 117, 112, 147, 114, and 141. IMPRESSION: 1. Left femur fracture, status post open reduction and internal fixation. 2. Diabetes mellitus type 2. 3. Hypertension. 4. Benign prostatic hypertrophy. 5. Venous insufficiency with stasis dermatitis. 6. Acute hypoxemic respiratory failure, improving. PLAN: 1. Continue current medications. 2. 1800 calorie heart healthy ADA diet. 3. Accu-Cheks with sliding scale coverage. 4. DVT and stress ulcer prophylaxis. 5. Decubitus precautions. 6. Titrate oxygen. 7. Orthopedic precautions. 8. Routine laboratory values. Job ID: [id number]
[2019-06-22] MEDS: Enoxaparin Sodium 30 MG/0.3 ML SYRINGE SC SCH (20:55)
[2019-06-22] MEDS: rOPINIRole HCl 1 MG TAB PO SCH (20:55)
[2019-06-22] MEDS: Tamsulosin HCl 0.4 MG CAP PO SCH (20:56)
[2019-06-23] MEDS: Levothyroxine Sodium 100 MCG TAB PO SCH (05:33)
[2019-06-23] MEDS: Budesonide 0.5 MG/2 ML NEB NEB SCH ×2 (05:33→17:30)
[2019-06-23] MEDS: hydrOXYzine 25 MG TAB PO SCH ×2 (08:56→19:51)
[2019-06-23] MEDS: Ascorbic Acid 500 mg Chewable Tablet PO SCH ×2 (08:56→19:50)
[2019-06-23] MEDS: hydrALAZINE 25 MG TAB PO SCH ×3 (08:56→19:51)
[2019-06-23] MEDS: Amlodipine 5 MG TAB PO SCH (08:56)
[2019-06-23] MEDS: Ferrous Sulfate 325 MG TAB PO SCH ×2 (08:56→17:29)
[2019-06-23] MEDS: Citalopram 20 MG TAB PO SCH (08:56)
[2019-06-23] MEDS: Cyclobenzaprine 10 MG TAB PO SCH ×2 (08:56→19:50)
[2019-06-23] MEDS: Furosemide 40 MG TAB PO SCH ×2 (08:57→14:44)
[2019-06-23] MEDS: Gabapentin 300 MG CAP PO SCH ×2 (08:57→19:50)
[2019-06-23] MEDS: Losartan Potassium 50 MG TAB PO SCH (08:57)
[2019-06-23] MEDS: Aspirin 81 mg Enteric Coated Tablet PO SCH (08:57)
[2019-06-23] MEDS: Isosorbide Mononitrate (ER) 30 MG TAB PO SCH (08:57)
[2019-06-23] MEDS: Lantus 1000 UNITS/10 ML VIAL SC SCH (08:57)
[2019-06-23] MEDS: Allopurinol 100 MG TAB PO SCH (08:57)
[2019-06-23] MEDS: Methocarbamol 500 MG TAB PO SCH ×3 (08:57→19:51)
[2019-06-23] MEDS: Betamethasone Val 0.1% OINT 15 GM TUBE TOP SCH ×2 (09:06→19:50)
[2019-06-23] MEDS: Bisacodyl 10 MG SUPP PR SCH (09:07)
[2019-06-23] MEDS: Senokot S 8.6-50 MG TAB PO SCH ×2 (09:07→19:52)
[2019-06-23] MEDS: Polyethylene Glycol 3350 17 GM Packet PO SCH (09:07)
[2019-06-23] MEDS: Acetaminophen 325 MG TAB PO PRN (09:57)
[2019-06-23] MEDS: HumaLOG 300 UNITS/3 ML VIAL SC PRN (12:07)
--- NOTE | 2019-06-23 13:01 | PRG ---
DATE OF SERVICE: 06/23/2019 SUBJECTIVE: Mr. Marc is doing well. He apparently walked around the hallway once he is off his oxygen. He is up in his chair, eating lunch. He denies any questions or concerns. No family at bedside. OBJECTIVE: VITAL SIGNS: He is afebrile, heart rate 85, respirations 18, oxygen saturation 97% on room air, and blood pressure 152/67. CARDIOVASCULAR SYSTEM: S1 and S2 plus. RESPIRATORY SYSTEM: Normal vesicular breath sounds. ABDOMEN: Soft and nontender. Bowel sounds heard in all quadrants. Obese. EXTREMITIES: Without cyanosis or clubbing. Chronic venous stasis with stasis dermatitis. CENTRAL NERVOUS SYSTEM: Awake and responsive. Generalized weakness. IMPRESSION: 1. Left hip fracture, status post fall. 2. Acute hypoxemic respiratory failure, resolved. 3. Chronic venous stasis. 4. Diabetes mellitus, type 2. 5. Hypertension. 6. Benign prostatic hypertrophy. PLAN: 1. Continue current medications. 2. 1800-calorie heart healthy ADA diet. 3. Orthopedic precautions with the incision care. 4. DVT prophylaxis with PlexiPulses. 5. Decubitus precautions. 6. Stress ulcer prophylaxis. 7. Monitor respiratory status. 8. Routine laboratory values. Job ID: [id number]
[2019-06-23] MEDS: Enoxaparin Sodium 30 MG/0.3 ML SYRINGE SC SCH (19:50)
[2019-06-23] MEDS: rOPINIRole HCl 1 MG TAB PO SCH (19:52)
[2019-06-23] MEDS: Tamsulosin HCl 0.4 MG CAP PO SCH (19:52)
[2019-06-24] MEDS: Budesonide 0.5 MG/2 ML NEB NEB SCH ×2 (06:12→17:47)
[2019-06-24] MEDS: Levothyroxine Sodium 100 MCG TAB PO SCH (06:12)
[2019-06-24] MEDS: Betamethasone Val 0.1% OINT 15 GM TUBE TOP SCH ×2 (09:02→20:50)
[2019-06-24] MEDS: Allopurinol 100 MG TAB PO SCH (09:02)
[2019-06-24] MEDS: Ferrous Sulfate 325 MG TAB PO SCH ×2 (09:02→17:47)
[2019-06-24] MEDS: hydrALAZINE 25 MG TAB PO SCH ×3 (09:03→20:51)
[2019-06-24] MEDS: Aspirin 81 mg Enteric Coated Tablet PO SCH (09:03)
[2019-06-24] MEDS: Gabapentin 300 MG CAP PO SCH ×2 (09:03→20:51)
[2019-06-24] MEDS: Methocarbamol 500 MG TAB PO SCH ×3 (09:03→20:52)
[2019-06-24] MEDS: Furosemide 40 MG TAB PO SCH ×2 (09:03→14:42)
[2019-06-24] MEDS: Ascorbic Acid 500 mg Chewable Tablet PO SCH ×2 (09:04→20:51)
[2019-06-24] MEDS: hydrOXYzine 25 MG TAB PO SCH ×2 (09:04→20:51)
[2019-06-24] MEDS: Cyclobenzaprine 10 MG TAB PO SCH ×2 (09:04→20:51)
[2019-06-24] MEDS: Citalopram 20 MG TAB PO SCH (09:04)
[2019-06-24] MEDS: Losartan Potassium 50 MG TAB PO SCH (09:04)
[2019-06-24] MEDS: Isosorbide Mononitrate (ER) 30 MG TAB PO SCH (09:04)
[2019-06-24] MEDS: Amlodipine 5 MG TAB PO SCH (09:04)
[2019-06-24] MEDS: Lantus 1000 UNITS/10 ML VIAL SC SCH (09:05)
[2019-06-24] MEDS: Senokot S 8.6-50 MG TAB PO SCH ×2 (09:06→20:53)
[2019-06-24] MEDS: Polyethylene Glycol 3350 17 GM Packet PO SCH (09:06)
[2019-06-24] MEDS: Bisacodyl 10 MG SUPP PR SCH (09:28)
--- NOTE | 2019-06-24 14:09 | PRG ---
DATE OF SERVICE: 06/24/2019 SUBJECTIVE: Mr. Marc is doing the same. Denies any complaints. His preet are ready to come out, so I have asked nursing to check with his surgeon to see if it is okay for us to remove it. No other concerns or questions. OBJECTIVE: VITAL SIGNS: He is afebrile. Heart rate 86, respirations 18, oxygen saturation 93% on room air, and blood pressure 131/60. CARDIOVASCULAR SYSTEM: S1 and S2 plus. RESPIRATORY SYSTEM: Normal vesicular breath sounds. ABDOMEN: Soft, nontender, and obese. Bowel sounds heard in all quadrants. EXTREMITIES: Chronic venous stasis. Stasis dermatitis is much improved. CENTRAL NERVOUS SYSTEM: Awake and responsive. Generalized weakness. LABORATORY DATA: His blood sugars are 161, 118, 177, 112, and 103. IMPRESSION: 1. Left hip fracture, status post open reduction and internal fixation. 2. Chronic venous insufficiency with stasis dermatitis. 3. Diabetes mellitus, type 2. 4. Hypertension. 5. Dyslipidemia. 6. Obesity. 7. Deconditioning. PLAN: 1. Continue current medications. 2. Nutritional support. 3. DVT and stress ulcer prophylaxis. 4. Decubitus precautions. 5. Routine laboratory values. 6. Physical Therapy. 7. Accu-Cheks with sliding scale coverage. 8. 1800 calorie heart healthy ADA diet. Job ID: [id number]
[2019-06-24] MEDS: rOPINIRole HCl 1 MG TAB PO SCH (20:51)
[2019-06-24] MEDS: Enoxaparin Sodium 30 MG/0.3 ML SYRINGE SC SCH (20:52)
[2019-06-24] MEDS: Tamsulosin HCl 0.4 MG CAP PO SCH (20:54)
[2019-06-25] MEDS: Levothyroxine Sodium 100 MCG TAB PO SCH (05:35)
[2019-06-25] MEDS: Budesonide 0.5 MG/2 ML NEB NEB SCH ×2 (05:58→18:21)
[2019-06-25] MEDS: Methocarbamol 500 MG TAB PO SCH ×3 (07:49→20:38)
[2019-06-25] MEDS: hydrOXYzine 25 MG TAB PO SCH ×2 (07:50→20:38)
[2019-06-25] MEDS: Losartan Potassium 50 MG TAB PO SCH (07:51)
[2019-06-25] MEDS: Allopurinol 100 MG TAB PO SCH (07:51)
[2019-06-25] MEDS: Ascorbic Acid 500 mg Chewable Tablet PO SCH ×2 (07:52→20:37)
[2019-06-25] MEDS: Isosorbide Mononitrate (ER) 30 MG TAB PO SCH (07:53)
[2019-06-25] MEDS: Cyclobenzaprine 10 MG TAB PO SCH ×2 (07:53→20:37)
[2019-06-25] MEDS: Aspirin 81 mg Enteric Coated Tablet PO SCH (07:53)
[2019-06-25] MEDS: Citalopram 20 MG TAB PO SCH (07:53)
[2019-06-25] MEDS: Ferrous Sulfate 325 MG TAB PO SCH ×2 (07:53→17:59)
[2019-06-25] MEDS: hydrALAZINE 25 MG TAB PO SCH ×3 (07:53→20:38)
[2019-06-25] MEDS: Amlodipine 5 MG TAB PO SCH (07:54)
[2019-06-25] MEDS: Gabapentin 300 MG CAP PO SCH ×2 (07:54→20:38)
[2019-06-25] MEDS: Lantus 1000 UNITS/10 ML VIAL SC SCH (07:55)
[2019-06-25] MEDS: Betamethasone Val 0.1% OINT 15 GM TUBE TOP SCH ×2 (07:55→20:38)
[2019-06-25] MEDS: Furosemide 40 MG TAB PO SCH ×2 (10:26→15:19)
[2019-06-25] MEDS: Polyethylene Glycol 3350 17 GM Packet PO SCH (10:26)
[2019-06-25] MEDS: Senokot S 8.6-50 MG TAB PO SCH ×2 (10:26→20:37)
[2019-06-25] MEDS: Bisacodyl 10 MG SUPP PR SCH (10:27)
[2019-06-25] MEDS: rOPINIRole HCl 1 MG TAB PO SCH (20:37)
[2019-06-25] MEDS: Enoxaparin Sodium 30 MG/0.3 ML SYRINGE SC SCH (20:38)
[2019-06-25] MEDS: Tamsulosin HCl 0.4 MG CAP PO SCH (20:38)
[2019-06-26] MEDS: Levothyroxine Sodium 100 MCG TAB PO SCH (05:20)
[2019-06-26] MEDS: Budesonide 0.5 MG/2 ML NEB NEB SCH ×2 (05:52→17:43)
[2019-06-26] MEDS: Ferrous Sulfate 325 MG TAB PO SCH ×2 (08:40→17:43)
[2019-06-26] MEDS: Allopurinol 100 MG TAB PO SCH (08:40)
[2019-06-26] MEDS: Aspirin 81 mg Enteric Coated Tablet PO SCH (08:41)
[2019-06-26] MEDS: Amlodipine 5 MG TAB PO SCH (08:41)
[2019-06-26] MEDS: Ascorbic Acid 500 mg Chewable Tablet PO SCH ×2 (08:41→21:15)
[2019-06-26] MEDS: Citalopram 20 MG TAB PO SCH (08:42)
[2019-06-26] MEDS: Cyclobenzaprine 10 MG TAB PO SCH ×2 (08:42→21:15)
[2019-06-26] MEDS: Bisacodyl 10 MG SUPP PR SCH (08:42)
[2019-06-26] MEDS: hydrALAZINE 25 MG TAB PO SCH ×3 (08:42→21:16)
[2019-06-26] MEDS: Gabapentin 300 MG CAP PO SCH ×2 (08:42→21:15)
[2019-06-26] MEDS: Furosemide 40 MG TAB PO SCH ×2 (08:42→14:22)
[2019-06-26] MEDS: Betamethasone Val 0.1% OINT 15 GM TUBE TOP SCH ×2 (08:42→21:16)
[2019-06-26] MEDS: Lantus 1000 UNITS/10 ML VIAL SC SCH (08:43)
[2019-06-26] MEDS: hydrOXYzine 25 MG TAB PO SCH ×2 (08:43→21:16)
[2019-06-26] MEDS: Isosorbide Mononitrate (ER) 30 MG TAB PO SCH (08:43)
[2019-06-26] MEDS: Polyethylene Glycol 3350 17 GM Packet PO SCH (08:44)
[2019-06-26] MEDS: Losartan Potassium 50 MG TAB PO SCH (08:44)
[2019-06-26] MEDS: Senokot S 8.6-50 MG TAB PO SCH ×2 (08:44→21:15)
[2019-06-26] MEDS: Methocarbamol 500 MG TAB PO SCH ×3 (08:44→21:16)
[2019-06-26] MEDS: rOPINIRole HCl 1 MG TAB PO SCH (21:15)
[2019-06-26] MEDS: Tamsulosin HCl 0.4 MG CAP PO SCH (21:15)
[2019-06-26] MEDS: Enoxaparin Sodium 30 MG/0.3 ML SYRINGE SC SCH (21:16)
[2019-06-27] MEDS: Levothyroxine Sodium 100 MCG TAB PO SCH (05:40)
[2019-06-27] MEDS: Budesonide 0.5 MG/2 ML NEB NEB SCH ×2 (06:02→17:22)
[2019-06-27] MEDS: Allopurinol 100 MG TAB PO SCH (08:37)
[2019-06-27] MEDS: Amlodipine 5 MG TAB PO SCH (08:37)
[2019-06-27] MEDS: Ferrous Sulfate 325 MG TAB PO SCH ×2 (08:37→17:22)
[2019-06-27] MEDS: Ascorbic Acid 500 mg Chewable Tablet PO SCH ×2 (08:38→20:34)
[2019-06-27] MEDS: Aspirin 81 mg Enteric Coated Tablet PO SCH (08:38)
[2019-06-27] MEDS: Betamethasone Val 0.1% OINT 15 GM TUBE TOP SCH ×2 (08:38→20:37)
[2019-06-27] MEDS: Bisacodyl 10 MG SUPP PR SCH (08:38)
[2019-06-27] MEDS: Citalopram 20 MG TAB PO SCH (08:38)
[2019-06-27] MEDS: Furosemide 40 MG TAB PO SCH ×2 (08:39→14:26)
[2019-06-27] MEDS: Gabapentin 300 MG CAP PO SCH ×2 (08:39→20:35)
[2019-06-27] MEDS: Cyclobenzaprine 10 MG TAB PO SCH ×2 (08:39→20:35)
[2019-06-27] MEDS: Isosorbide Mononitrate (ER) 30 MG TAB PO SCH (08:40)
[2019-06-27] MEDS: hydrALAZINE 25 MG TAB PO SCH ×3 (08:40→20:34)
[2019-06-27] MEDS: Lantus 1000 UNITS/10 ML VIAL SC SCH (08:40)
[2019-06-27] MEDS: hydrOXYzine 25 MG TAB PO SCH ×2 (08:40→20:35)
[2019-06-27] MEDS: Methocarbamol 500 MG TAB PO SCH ×3 (08:41→20:34)
[2019-06-27] MEDS: Losartan Potassium 50 MG TAB PO SCH (08:41)
[2019-06-27] MEDS: Polyethylene Glycol 3350 17 GM Packet PO SCH (08:41)
[2019-06-27] MEDS: Senokot S 8.6-50 MG TAB PO SCH ×2 (08:42→20:35)
[2019-06-27] MEDS: traMADol HCl 50 MG TAB PO PRN (18:24)
[2019-06-27] MEDS: Acetaminophen 325 MG TAB PO PRN (18:24)
[2019-06-27] MEDS: Enoxaparin Sodium 30 MG/0.3 ML SYRINGE SC SCH (20:34)
[2019-06-27] MEDS: rOPINIRole HCl 1 MG TAB PO SCH (20:35)
[2019-06-27] MEDS: Tamsulosin HCl 0.4 MG CAP PO SCH (20:35)
--- NOTE | 2019-06-27 20:41 | PRG ---
DATE OF SERVICE: 06/26/2019 SUBJECTIVE: The patient feels well, lying in bed, had his preet removed and is cooperative with therapy. OBJECTIVE: VITAL SIGNS: His blood pressure is 161/70, temperature 96, pulse 69, respirations 20, O2 sats 95% on room air. LUNGS: Clear. CARDIAC: Regular rhythm. ABDOMEN: Soft, nontender. SKIN AND EXTREMITIES: Display chronic venous stasis, healing left hip incision. ASSESSMENT: 1. Resolving left hip fracture, status post open reduction and internal fixation. 2. Stable type 2 diabetes. 3. Stable deep venous insufficiency and improving stasis dermatitis. 4. Hypertension, controlled to goal. PLAN: 1. Continue PT/OT. 2. Continue DVT and stress ulcer prophylaxis. 3. Continue Accu-Cheks to monitor and titrate and control diabetes. Job ID: [id number]
--- NOTE | 2019-06-27 20:44 | PRG ---
DATE OF SERVICE: 06/27/2019 SUBJECTIVE: The patient lying in bed, resting, watching TV. He states he feels well and is ready for more therapy tomorrow. OBJECTIVE: VITAL SIGNS: Temperature 96.6, pulse 69, respirations 20, O2 sats 95% on room air, blood pressure 161/70. LUNGS: Clear. CARDIAC: Regular rhythm. SKIN AND EXTREMITIES: Improving stasis dermatitis, stable deep venous insufficiency, healing left lateral hip incision. ASSESSMENT: 1. Resolving left hip fracture, status post open reduction and internal fixation. 2. Stable deep venous insufficiency. 3. Stable type 2 diabetes, controlled to goal. 4. Stable hypertension. PLAN: 1. Continue PT/OT. 2. Continue stress ulcer prophylaxis and DVT prophylaxis. 3. Continue Accu-Cheks to monitor and titrate and control diabetes. Job ID: [id number]
[2019-06-28] MEDS: Levothyroxine Sodium 100 MCG TAB PO SCH (05:22)
[2019-06-28] MEDS: Budesonide 0.5 MG/2 ML NEB NEB SCH ×2 (06:00→17:30)
[2019-06-28] MEDS: Allopurinol 100 MG TAB PO SCH (08:40)
[2019-06-28] MEDS: Ferrous Sulfate 325 MG TAB PO SCH ×2 (08:40→17:29)
[2019-06-28] MEDS: Amlodipine 5 MG TAB PO SCH (08:41)
[2019-06-28] MEDS: Betamethasone Val 0.1% OINT 15 GM TUBE TOP SCH ×2 (08:42→20:31)
[2019-06-28] MEDS: Aspirin 81 mg Enteric Coated Tablet PO SCH (08:42)
[2019-06-28] MEDS: Ascorbic Acid 500 mg Chewable Tablet PO SCH ×2 (08:42→20:31)
[2019-06-28] MEDS: Bisacodyl 10 MG SUPP PR SCH (08:43)
[2019-06-28] MEDS: Cyclobenzaprine 10 MG TAB PO SCH ×2 (08:43→20:31)
[2019-06-28] MEDS: Citalopram 20 MG TAB PO SCH (08:43)
[2019-06-28] MEDS: Furosemide 40 MG TAB PO SCH ×2 (08:43→14:20)
[2019-06-28] MEDS: hydrOXYzine 25 MG TAB PO SCH ×2 (08:44→20:32)
[2019-06-28] MEDS: Gabapentin 300 MG CAP PO SCH ×2 (08:44→20:32)
[2019-06-28] MEDS: Lantus 1000 UNITS/10 ML VIAL SC SCH (08:44)
[2019-06-28] MEDS: hydrALAZINE 25 MG TAB PO SCH ×3 (08:44→20:32)
[2019-06-28] MEDS: Isosorbide Mononitrate (ER) 30 MG TAB PO SCH (08:45)
[2019-06-28] MEDS: Polyethylene Glycol 3350 17 GM Packet PO SCH (08:46)
[2019-06-28] MEDS: Losartan Potassium 50 MG TAB PO SCH (08:46)
[2019-06-28] MEDS: Methocarbamol 500 MG TAB PO SCH ×3 (08:46→20:32)
[2019-06-28] MEDS: Senokot S 8.6-50 MG TAB PO SCH ×2 (08:47→20:33)
[2019-06-28] MEDS: traMADol HCl 50 MG TAB PO PRN (10:46)
[2019-06-28] MEDS: Acetaminophen 325 MG TAB PO PRN (10:46)
--- NOTE | 2019-06-28 14:00 | PRG ---
DATE OF SERVICE: 06/28/2019 SUBJECTIVE: Mr. Marc is up in his chair and denies any complaints. He is happy with his progress. He saw his orthopedic surgeon and had his preet removed. Discussed with nursing. OBJECTIVE: VITAL SIGNS: He is afebrile. Heart rate 78, respirations 18, oxygen saturation 98%, and blood pressure is 131/59. CARDIOVASCULAR: S1, S2 plus. RESPIRATORY: Normal vesicular breath sounds. ABDOMEN: Soft, nontender. Bowel sounds heard in all quadrants. Obese. EXTREMITIES: Without cyanosis or clubbing. Chronic stasis dermatitis. Trace edema. CENTRAL NERVOUS SYSTEM: Awake and responsive. Generalized weakness. IMPRESSION: 1. Left hip fracture, status post open reduction and internal fixation. 2. Obesity. 3. Diabetes mellitus type 2. 4. Hypertension. 5. Dyslipidemia. 6. Improving deconditioning. PLAN: 1. Continue current medications. 2. 1800-calorie heart healthy ADA diet. 3. Accu-Cheks with sliding scale coverage. 4. DVT and stress ulcer prophylaxis. 5. Decubitus precautions. 6. Routine laboratory values. 7. Physical therapy. Job ID: [id number]
[2019-06-28] MEDS: Enoxaparin Sodium 30 MG/0.3 ML SYRINGE SC SCH (20:32)
[2019-06-28] MEDS: Tamsulosin HCl 0.4 MG CAP PO SCH (20:33)
[2019-06-28] MEDS: rOPINIRole HCl 1 MG TAB PO SCH (20:33)
[2019-06-29] MEDS: Levothyroxine Sodium 100 MCG TAB PO SCH (05:34)
[2019-06-29] MEDS: Budesonide 0.5 MG/2 ML NEB NEB SCH ×2 (05:35→17:22)
[2019-06-29] MEDS: Ferrous Sulfate 325 MG TAB PO SCH ×2 (08:37→17:08)
[2019-06-29] MEDS: Cyclobenzaprine 10 MG TAB PO SCH ×2 (08:37→21:24)
[2019-06-29] MEDS: hydrOXYzine 25 MG TAB PO SCH ×2 (08:37→21:25)
[2019-06-29] MEDS: hydrALAZINE 25 MG TAB PO SCH ×3 (08:37→21:24)
[2019-06-29] MEDS: Citalopram 20 MG TAB PO SCH (08:37)
[2019-06-29] MEDS: Furosemide 40 MG TAB PO SCH ×2 (08:37→14:29)
[2019-06-29] MEDS: Gabapentin 300 MG CAP PO SCH ×2 (08:37→21:24)
[2019-06-29] MEDS: Losartan Potassium 50 MG TAB PO SCH (08:37)
[2019-06-29] MEDS: Acetaminophen 325 MG TAB PO PRN (08:38)
[2019-06-29] MEDS: Betamethasone Val 0.1% OINT 15 GM TUBE TOP SCH ×2 (08:38→21:23)
[2019-06-29] MEDS: Isosorbide Mononitrate (ER) 30 MG TAB PO SCH (08:38)
[2019-06-29] MEDS: Aspirin 81 mg Enteric Coated Tablet PO SCH (08:38)
[2019-06-29] MEDS: Ascorbic Acid 500 mg Chewable Tablet PO SCH ×2 (08:38→21:23)
[2019-06-29] MEDS: Allopurinol 100 MG TAB PO SCH (08:38)
[2019-06-29] MEDS: Amlodipine 5 MG TAB PO SCH (08:38)
[2019-06-29] MEDS: Methocarbamol 500 MG TAB PO SCH ×3 (08:38→21:25)
[2019-06-29] MEDS: Lantus 1000 UNITS/10 ML VIAL SC SCH (08:39)
[2019-06-29] MEDS: Senokot S 8.6-50 MG TAB PO SCH ×2 (09:08→21:26)
[2019-06-29] MEDS: Polyethylene Glycol 3350 17 GM Packet PO SCH (09:08)
[2019-06-29] MEDS: Bisacodyl 10 MG SUPP PR SCH (09:08)
--- NOTE | 2019-06-29 13:41 | PRG ---
DATE OF SERVICE: 06/29/2019 SUBJECTIVE: Mr. Marc is doing well. Denies any complaints. Up in his chair, just finished his lunch. No concerns or questions. No family at bedside. OBJECTIVE: VITAL SIGNS: He is afebrile. Heart rate 86, respirations 18, oxygen saturation 97% on room air, blood pressure 135/63. CARDIOVASCULAR SYSTEM: S1 and S2 plus. RESPIRATORY SYSTEM: Normal vesicular breath sounds. ABDOMEN: Soft. Nontender. Bowel sounds heard in all quadrants. Obese. EXTREMITIES: Without cyanosis or clubbing. Trace edema. Chronic venous insufficiency with stasis dermatitis. CENTRAL NERVOUS SYSTEM: Awake and responsive. Generalized weakness. LABORATORIES: Blood sugars are 127, 137, 92, and 128. IMPRESSION: 1. Diabetes mellitus, type 2. 2. Hypertension. 3. Dyslipidemia. 4. Left hip fracture, status post open reduction and internal fixation. 5. Obesity. 6. Resolved acute hypoxemic respiratory failure. 7. Improving deconditioning. PLAN: 1. Continue current medications. 2. Nutritional support. 3. Decubitus precautions. 4. Physical therapy. 5. Accu-Cheks with sliding scale coverage. 6. DVT prophylaxis - he is on Lovenox. 7. Routine laboratory values. Job ID: [id number]
[2019-06-29] MEDS: Enoxaparin Sodium 30 MG/0.3 ML SYRINGE SC SCH (21:24)
[2019-06-29] MEDS: rOPINIRole HCl 1 MG TAB PO SCH (21:26)
[2019-06-29] MEDS: Tamsulosin HCl 0.4 MG CAP PO SCH (21:26)
[2019-06-30] MEDS: Budesonide 0.5 MG/2 ML NEB NEB SCH ×2 (05:45→17:26)
[2019-06-30] MEDS: Levothyroxine Sodium 100 MCG TAB PO SCH (05:45)
[2019-06-30] MEDS: Allopurinol 100 MG TAB PO SCH (08:47)
[2019-06-30] MEDS: Ferrous Sulfate 325 MG TAB PO SCH ×2 (08:47→17:25)
[2019-06-30] MEDS: Amlodipine 5 MG TAB PO SCH (08:49)
[2019-06-30] MEDS: Bisacodyl 10 MG SUPP PR SCH (08:50)
[2019-06-30] MEDS: Ascorbic Acid 500 mg Chewable Tablet PO SCH ×2 (08:50→20:56)
[2019-06-30] MEDS: Betamethasone Val 0.1% OINT 15 GM TUBE TOP SCH ×2 (08:50→20:56)
[2019-06-30] MEDS: Citalopram 20 MG TAB PO SCH (08:50)
[2019-06-30] MEDS: Aspirin 81 mg Enteric Coated Tablet PO SCH (08:50)
[2019-06-30] MEDS: Cyclobenzaprine 10 MG TAB PO SCH ×2 (08:51→20:57)
[2019-06-30] MEDS: hydrOXYzine 25 MG TAB PO SCH ×2 (08:51→20:57)
[2019-06-30] MEDS: Gabapentin 300 MG CAP PO SCH ×2 (08:51→20:57)
[2019-06-30] MEDS: hydrALAZINE 25 MG TAB PO SCH ×3 (08:51→20:57)
[2019-06-30] MEDS: Furosemide 40 MG TAB PO SCH ×2 (08:51→14:12)
[2019-06-30] MEDS: Lantus 1000 UNITS/10 ML VIAL SC SCH (08:51)
[2019-06-30] MEDS: Isosorbide Mononitrate (ER) 30 MG TAB PO SCH (08:52)
[2019-06-30] MEDS: Polyethylene Glycol 3350 17 GM Packet PO SCH (08:52)
[2019-06-30] MEDS: Losartan Potassium 50 MG TAB PO SCH (08:52)
[2019-06-30] MEDS: Methocarbamol 500 MG TAB PO SCH ×3 (08:52→20:57)
[2019-06-30] MEDS: Senokot S 8.6-50 MG TAB PO SCH ×2 (08:53→20:58)
--- NOTE | 2019-06-30 13:28 | PRG ---
DATE OF SERVICE: 06/30/2019 SUBJECTIVE: Mr. Marc is up in his chair and just finished his lunch. He is happy with his progress. He is compliant with his CPAP. He denies any questions or concerns. No family at bedside. Discussed with nursing. OBJECTIVE: VITAL SIGNS: He is afebrile, heart rate 83, respirations 20, oxygen saturation 97% on room air, and blood pressure 137/63. CARDIOVASCULAR SYSTEM: S1 and S2 plus. RESPIRATORY SYSTEM: Normal vesicular breath sounds. ABDOMEN: Soft, obese, and nontender. Bowel sounds heard in all quadrants. EXTREMITIES: Without cyanosis or clubbing. Trace edema. Chronic venous insufficiency with stasis dermatitis. CENTRAL NERVOUS SYSTEM: Awake and responsive. Generalized weakness. Grossly nonfocal. LABORATORY DATA: Blood sugars are 128, 113, 125, 105, and 124. IMPRESSION: 1. Left hip fracture, status post open reduction and internal fixation. 2. Obesity. 3. Obstructive sleep apnea. 4. Diabetes mellitus, type 2, well controlled. 5. Hypertension. 6. Dyslipidemia. 7. Improving deconditioning. PLAN: 1. Continue current medications. 2. 1800 calorie heart healthy ADA diet. 3. Accu-Cheks with sliding scale coverage. 4. DVT prophylaxis-he is on Lovenox. 5. Decubitus precautions. 6. Stress ulcer prophylaxis. 7. Reinforced compliance with CPAP. 8. Continue physical therapy. 9. Routine laboratory values. Job ID: [id number]
[2019-06-30] MEDS: Enoxaparin Sodium 30 MG/0.3 ML SYRINGE SC SCH (20:57)
[2019-06-30] MEDS: Tamsulosin HCl 0.4 MG CAP PO SCH (20:58)
[2019-06-30] MEDS: rOPINIRole HCl 1 MG TAB PO SCH (20:58)
[2019-07-01] MEDS: Levothyroxine Sodium 100 MCG TAB PO SCH (05:50)
[2019-07-01] MEDS: Budesonide 0.5 MG/2 ML NEB NEB SCH ×2 (07:35→17:35)
[2019-07-01] MEDS: Amlodipine 5 MG TAB PO SCH (08:32)
[2019-07-01] MEDS: Ferrous Sulfate 325 MG TAB PO SCH ×2 (08:32→17:35)
[2019-07-01] MEDS: Allopurinol 100 MG TAB PO SCH (08:32)
[2019-07-01] MEDS: Ascorbic Acid 500 mg Chewable Tablet PO SCH ×2 (08:33→21:21)
[2019-07-01] MEDS: Aspirin 81 mg Enteric Coated Tablet PO SCH (08:33)
[2019-07-01] MEDS: Citalopram 20 MG TAB PO SCH (08:34)
[2019-07-01] MEDS: Gabapentin 300 MG CAP PO SCH ×2 (08:34→21:21)
[2019-07-01] MEDS: Betamethasone Val 0.1% OINT 15 GM TUBE TOP SCH ×2 (08:34→21:21)
[2019-07-01] MEDS: Furosemide 40 MG TAB PO SCH ×2 (08:34→14:17)
[2019-07-01] MEDS: Bisacodyl 10 MG SUPP PR SCH (08:34)
[2019-07-01] MEDS: Cyclobenzaprine 10 MG TAB PO SCH ×2 (08:34→21:21)
[2019-07-01] MEDS: Isosorbide Mononitrate (ER) 30 MG TAB PO SCH (08:35)
[2019-07-01] MEDS: hydrOXYzine 25 MG TAB PO SCH ×2 (08:35→21:21)
[2019-07-01] MEDS: Lantus 1000 UNITS/10 ML VIAL SC SCH (08:35)
[2019-07-01] MEDS: hydrALAZINE 25 MG TAB PO SCH ×3 (08:35→21:20)
[2019-07-01] MEDS: Losartan Potassium 50 MG TAB PO SCH (08:36)
[2019-07-01] MEDS: Methocarbamol 500 MG TAB PO SCH ×3 (08:36→21:20)
[2019-07-01] MEDS: Senokot S 8.6-50 MG TAB PO SCH ×2 (08:36→21:22)
[2019-07-01] MEDS: Polyethylene Glycol 3350 17 GM Packet PO SCH (08:36)
--- NOTE | 2019-07-01 13:06 | PRG ---
DATE OF SERVICE: 07/01/2019 SUBJECTIVE: Mr. Marc is back in bed after lunch and enjoying his of Western movies. He states that he is slowly improving with therapy. Pain is well controlled. Denies any chest pain or shortness of breath. Discussed with nursing. No family at bedside. OBJECTIVE: VITAL SIGNS: He is afebrile, heart rate 76, respirations 20, oxygen saturation 98% on room air, and blood pressure 107/52. CARDIOVASCULAR SYSTEM: S1 and S2 plus. RESPIRATORY SYSTEM: Normal vesicular breath sounds. ABDOMEN: Soft, obese, and nontender. Bowel sounds heard in all quadrants. EXTREMITIES: Without cyanosis or clubbing. Trace edema. Chronic venous insufficiency resolved. Eczematous changes to his stasis dermatitis. CENTRAL NERVOUS SYSTEM: Awake and responsive. Generalized weakness. LABORATORY VALUES: Blood sugars of 131, 151, 114, and 133. IMPRESSION: 1. Left hip fracture, status post open reduction and internal fixation. 2. Obstructive sleep apnea. 3. Diabetes mellitus, type 2. 4. Hypertension. 5. Dyslipidemia. 6. Improving deconditioning. PLAN: 1. Continue current medications. 2. 1800 calorie heart healthy ADA diet. 3. Accu-Cheks with sliding scale coverage. 4. DVT prophylaxis-he is on Lovenox. 5. Decubitus precautions. 6. Stress ulcer prophylaxis. 7. Monitor stasis dermatitis. 8. Continue CPAP whenever he takes a nap or at night. 9. Routine laboratory values. 10. Physical therapy. Job ID: [id number]
[2019-07-01] MEDS: rOPINIRole HCl 1 MG TAB PO SCH (21:21)
[2019-07-01] MEDS: Tamsulosin HCl 0.4 MG CAP PO SCH (21:21)
[2019-07-01] MEDS: Enoxaparin Sodium 30 MG/0.3 ML SYRINGE SC SCH (21:22)
[2019-07-02] MEDS: Budesonide 0.5 MG/2 ML NEB NEB SCH ×2 (05:22→19:20)
[2019-07-02] MEDS: Levothyroxine Sodium 100 MCG TAB PO SCH (05:22)
[2019-07-02] MEDS: traMADol HCl 50 MG TAB PO PRN (05:25)
[2019-07-02] MEDS: Ferrous Sulfate 325 MG TAB PO SCH ×2 (08:39→19:19)
[2019-07-02] MEDS: Amlodipine 5 MG TAB PO SCH (08:40)
[2019-07-02] MEDS: Isosorbide Mononitrate (ER) 30 MG TAB PO SCH (08:40)
[2019-07-02] MEDS: Allopurinol 100 MG TAB PO SCH (08:40)
[2019-07-02] MEDS: Methocarbamol 500 MG TAB PO SCH ×3 (08:41→20:53)
[2019-07-02] MEDS: Ascorbic Acid 500 mg Chewable Tablet PO SCH ×2 (08:41→20:54)
[2019-07-02] MEDS: Losartan Potassium 50 MG TAB PO SCH (08:41)
[2019-07-02] MEDS: Citalopram 20 MG TAB PO SCH (08:41)
[2019-07-02] MEDS: hydrOXYzine 25 MG TAB PO SCH ×2 (08:41→20:54)
[2019-07-02] MEDS: Cyclobenzaprine 10 MG TAB PO SCH ×2 (08:41→20:54)
[2019-07-02] MEDS: Lantus 1000 UNITS/10 ML VIAL SC SCH (08:42)
[2019-07-02] MEDS: Betamethasone Val 0.1% OINT 15 GM TUBE TOP SCH ×2 (08:42→20:57)
[2019-07-02] MEDS: hydrALAZINE 25 MG TAB PO SCH ×3 (08:42→20:54)
[2019-07-02] MEDS: Gabapentin 300 MG CAP PO SCH ×2 (08:42→20:53)
[2019-07-02] MEDS: Furosemide 40 MG TAB PO SCH ×2 (08:42→14:55)
[2019-07-02] MEDS: Aspirin 81 mg Enteric Coated Tablet PO SCH (08:42)
[2019-07-02] MEDS: Polyethylene Glycol 3350 17 GM Packet PO SCH (09:12)
[2019-07-02] MEDS: Bisacodyl 10 MG SUPP PR SCH (09:12)
[2019-07-02] MEDS: Senokot S 8.6-50 MG TAB PO SCH ×2 (09:13→20:54)
[2019-07-02] MEDS: Tamsulosin HCl 0.4 MG CAP PO SCH (20:53)
[2019-07-02] MEDS: rOPINIRole HCl 1 MG TAB PO SCH (20:54)
[2019-07-02] MEDS: Enoxaparin Sodium 30 MG/0.3 ML SYRINGE SC SCH (20:56)
[2019-07-03] MEDS: traMADol HCl 50 MG TAB PO PRN (05:13)
[2019-07-03] MEDS: Budesonide 0.5 MG/2 ML NEB NEB SCH ×2 (05:14→17:46)
[2019-07-03] MEDS: Levothyroxine Sodium 100 MCG TAB PO SCH (05:14)
[2019-07-03] MEDS: Amlodipine 5 MG TAB PO SCH (08:17)
[2019-07-03] MEDS: Betamethasone Val 0.1% OINT 15 GM TUBE TOP SCH ×2 (08:17→20:17)
[2019-07-03] MEDS: Polyethylene Glycol 3350 17 GM Packet PO SCH (08:17)
[2019-07-03] MEDS: Ascorbic Acid 500 mg Chewable Tablet PO SCH ×2 (08:18→20:16)
[2019-07-03] MEDS: Allopurinol 100 MG TAB PO SCH (08:18)
[2019-07-03] MEDS: Cyclobenzaprine 10 MG TAB PO SCH ×2 (08:18→20:16)
[2019-07-03] MEDS: Losartan Potassium 50 MG TAB PO SCH (08:18)
[2019-07-03] MEDS: Citalopram 20 MG TAB PO SCH (08:19)
[2019-07-03] MEDS: Furosemide 40 MG TAB PO SCH ×2 (08:19→14:38)
[2019-07-03] MEDS: Senokot S 8.6-50 MG TAB PO SCH ×2 (08:19→20:16)
[2019-07-03] MEDS: hydrALAZINE 25 MG TAB PO SCH ×3 (08:19→20:16)
[2019-07-03] MEDS: Gabapentin 300 MG CAP PO SCH ×2 (08:19→20:16)
[2019-07-03] MEDS: Isosorbide Mononitrate (ER) 30 MG TAB PO SCH (08:19)
[2019-07-03] MEDS: Ferrous Sulfate 325 MG TAB PO SCH ×2 (08:19→17:34)
[2019-07-03] MEDS: hydrOXYzine 25 MG TAB PO SCH ×2 (08:19→20:16)
[2019-07-03] MEDS: Aspirin 81 mg Enteric Coated Tablet PO SCH (08:19)
[2019-07-03] MEDS: Lantus 1000 UNITS/10 ML VIAL SC SCH (08:20)
[2019-07-03] MEDS: Methocarbamol 500 MG TAB PO SCH ×3 (08:20→20:16)
[2019-07-03] MEDS: Bisacodyl 10 MG SUPP PR SCH (08:20)
--- NOTE | 2019-07-03 14:51 | PRG ---
DATE OF SERVICE: 07/03/2019 SUBJECTIVE: Mr. Marc is sleeping, but arousable. He denies any questions or concerns. He is happy with his progress. He is toe-touch weightbearing on his left leg for another week until he follows up with Orthopedics and possibly gets it advanced. OBJECTIVE: VITAL SIGNS: He is afebrile, heart rate 77, respirations 18, oxygen saturation 92% on room air, and blood pressure 121/70. CARDIOVASCULAR: S1 and S2 plus. RESPIRATORY: Normal vesicular breath sounds. ABDOMEN: Soft, nontender. Bowel sounds heard in all quadrants. EXTREMITIES: Without cyanosis, clubbing. Chronic venous stasis. IMPRESSION: 1. Left hip fracture, status post open reduction and internal fixation. 2. Diabetes mellitus type 2. His blood sugars are great at 119, 143, 122, and 119. 3. Obesity. 4. Chronic venous insufficiency. 5. Hypertension. 6. Dyslipidemia. 7. Obstructive sleep apnea. PLAN: 1. Continue current medications. 2. Orthopedic precautions. 3. DVT prophylaxis, he is on Lovenox. 4. Decubitus precautions. 5. Stress ulcer prophylaxis. 6. 1800-calorie heart healthy ADA diet. 7. Accu-Cheks with sliding scale coverage. 8. Continue physical therapy. 9. Follow up with Orthopedic Surgery next week. Job ID: [id number]
[2019-07-03] MEDS: rOPINIRole HCl 1 MG TAB PO SCH (20:16)
[2019-07-03] MEDS: Tamsulosin HCl 0.4 MG CAP PO SCH (20:16)
[2019-07-03] MEDS: Enoxaparin Sodium 30 MG/0.3 ML SYRINGE SC SCH (20:17)
[2019-07-04] MEDS: Levothyroxine Sodium 100 MCG TAB PO SCH (05:24)
[2019-07-04] MEDS: Budesonide 0.5 MG/2 ML NEB NEB SCH ×2 (05:24→17:36)
[2019-07-04] MEDS: Amlodipine 5 MG TAB PO SCH (08:37)
[2019-07-04] MEDS: Citalopram 20 MG TAB PO SCH (08:37)
[2019-07-04] MEDS: hydrALAZINE 25 MG TAB PO SCH ×3 (08:37→20:44)
[2019-07-04] MEDS: Senokot S 8.6-50 MG TAB PO SCH ×2 (08:37→20:45)
[2019-07-04] MEDS: hydrOXYzine 25 MG TAB PO SCH ×2 (08:37→20:45)
[2019-07-04] MEDS: Ferrous Sulfate 325 MG TAB PO SCH ×2 (08:37→17:23)
[2019-07-04] MEDS: Furosemide 40 MG TAB PO SCH ×2 (08:38→14:38)
[2019-07-04] MEDS: Gabapentin 300 MG CAP PO SCH ×2 (08:38→20:45)
[2019-07-04] MEDS: Aspirin 81 mg Enteric Coated Tablet PO SCH (08:38)
[2019-07-04] MEDS: Ascorbic Acid 500 mg Chewable Tablet PO SCH ×2 (08:38→20:44)
[2019-07-04] MEDS: Methocarbamol 500 MG TAB PO SCH ×3 (08:38→20:43)
[2019-07-04] MEDS: Cyclobenzaprine 10 MG TAB PO SCH ×2 (08:38→20:45)
[2019-07-04] MEDS: Allopurinol 100 MG TAB PO SCH (08:38)
[2019-07-04] MEDS: Isosorbide Mononitrate (ER) 30 MG TAB PO SCH (08:38)
[2019-07-04] MEDS: Losartan Potassium 50 MG TAB PO SCH (08:38)
[2019-07-04] MEDS: Betamethasone Val 0.1% OINT 15 GM TUBE TOP SCH (08:39)
[2019-07-04] MEDS: Polyethylene Glycol 3350 17 GM Packet PO SCH (08:39)
[2019-07-04] MEDS: Lantus 1000 UNITS/10 ML VIAL SC SCH (08:39)
[2019-07-04] MEDS: Bisacodyl 10 MG SUPP PR SCH (08:54)
--- NOTE | 2019-07-04 15:14 | PRG ---
DATE OF SERVICE: 07/04/2019 SUBJECTIVE: Mr. Marc is sleeping, but arousable. Denies any questions or concerns. Advise nursing to discontinue his steroid cream. His eczema has pretty much resolved. OBJECTIVE: VITAL SIGNS: He is afebrile, heart rate is 80, respirations 20, oxygen saturation 98% on room air, and blood pressure 133/62. CARDIOVASCULAR SYSTEM: S1 and S2 plus. RESPIRATORY SYSTEM: Normal vesicular breath sounds. ABDOMEN: Soft, nontender. Bowel sounds heard in all quadrants. EXTREMITIES: Without cyanosis or clubbing. Chronic venous stasis. CENTRAL NERVOUS SYSTEM: Awake and responsive. Generalized weakness. LABORATORY DATA: Blood sugars are 124, 144, 95, and 129. IMPRESSION: 1. Left hip fracture, status post open reduction and internal fixation. 2. Chronic venous insufficiency. 3. Obesity. 4. Obstructive sleep apnea. 5. Diabetes mellitus, type 2. 6. Hypertension. 7. Dyslipidemia. PLAN: 1. Continue current medications except stop topical steroid cream. 2. An 1800-calorie heart healthy ADA diet. 3. Accu-Cheks with sliding-scale coverage. 4. DVT prophylaxis - he is on Lovenox 5. 5. Decubitus precautions. 6. Stress ulcer prophylaxis. 7. Routine laboratory values. 8. Physical therapy. Job ID: [id number]
[2019-07-04] MEDS: rOPINIRole HCl 1 MG TAB PO SCH (20:44)
[2019-07-04] MEDS: Enoxaparin Sodium 30 MG/0.3 ML SYRINGE SC SCH (20:45)
[2019-07-04] MEDS: Tamsulosin HCl 0.4 MG CAP PO SCH (20:45)
[2019-07-05] MEDS: Budesonide 0.5 MG/2 ML NEB NEB SCH ×2 (05:37→17:45)
[2019-07-05] MEDS: Levothyroxine Sodium 100 MCG TAB PO SCH (05:37)
[2019-07-05] MEDS: Ferrous Sulfate 325 MG TAB PO SCH ×2 (08:33→17:44)
[2019-07-05] MEDS: Allopurinol 100 MG TAB PO SCH (08:34)
[2019-07-05] MEDS: Amlodipine 5 MG TAB PO SCH (08:34)
[2019-07-05] MEDS: Ascorbic Acid 500 mg Chewable Tablet PO SCH ×2 (08:34→21:01)
[2019-07-05] MEDS: Furosemide 40 MG TAB PO SCH ×2 (08:35→14:12)
[2019-07-05] MEDS: Aspirin 81 mg Enteric Coated Tablet PO SCH (08:35)
[2019-07-05] MEDS: Citalopram 20 MG TAB PO SCH (08:35)
[2019-07-05] MEDS: Cyclobenzaprine 10 MG TAB PO SCH ×2 (08:35→21:01)
[2019-07-05] MEDS: hydrALAZINE 25 MG TAB PO SCH ×3 (08:36→21:01)
[2019-07-05] MEDS: Gabapentin 300 MG CAP PO SCH ×2 (08:36→21:01)
[2019-07-05] MEDS: hydrOXYzine 25 MG TAB PO SCH ×2 (08:36→21:01)
[2019-07-05] MEDS: Isosorbide Mononitrate (ER) 30 MG TAB PO SCH (08:37)
[2019-07-05] MEDS: Lantus 1000 UNITS/10 ML VIAL SC SCH (08:37)
[2019-07-05] MEDS: Methocarbamol 500 MG TAB PO SCH ×3 (08:37→21:00)
[2019-07-05] MEDS: Losartan Potassium 50 MG TAB PO SCH (08:37)
[2019-07-05] MEDS: Senokot S 8.6-50 MG TAB PO SCH ×2 (08:38→21:01)
[2019-07-05] MEDS: Polyethylene Glycol 3350 17 GM Packet PO SCH (08:38)
[2019-07-05] MEDS: Bisacodyl 10 MG SUPP PR SCH (09:52)
--- NOTE | 2019-07-05 13:21 | PRG ---
DATE OF SERVICE: 07/05/2019 SUBJECTIVE: Mr. Marc is resting comfortably in his chair and denies any complaints. He just finished his lunch. OBJECTIVE: VITAL SIGNS: He is afebrile. Heart rate 81, respirations 20, oxygen saturation 92% on room air, and blood pressure 134/61. CARDIOVASCULAR SYSTEM: S1 and S2 plus. RESPIRATORY SYSTEM: Normal vesicular breath sounds. ABDOMEN: Soft, obese, nontender. Bowel sounds heard in all quadrants. EXTREMITIES: Without cyanosis or clubbing. Chronic venous stasis. CENTRAL NERVOUS SYSTEM: Awake and responsive. Generalized weakness. LABORATORY DATA: Blood sugars are 129, 123, 147, 111, and 135. IMPRESSION: 1. Left hip fracture, status post open reduction and internal fixation. 2. Diabetes mellitus, type 2. 3. Obstructive sleep apnea. 4. Hypertension. 5. Dyslipidemia. PLAN: 1. Continue current medications. 2. 1800 calorie heart healthy ADA diet. 3. Accu-Cheks with sliding scale coverage. 4. DVT prophylaxis. He is on Lovenox. 5. Decubitus precautions. 6. Stress ulcer prophylaxis. 7. Physical therapy. 8. Await instructions from Orthopedics as to when we can start to increase his weightbearing status. Job ID: [id number]
--- NOTE | 2019-07-05 13:28 | PRG ---
DATE OF SERVICE: 07/02/2019 SUBJECTIVE: Mr. Marc is doing well, resting comfortably, sleeping but arousable. OBJECTIVE: VITAL SIGNS: He is afebrile. Heart rate is 79, respirations 18, oxygen saturation 93% on room air, and blood pressure 125/56. CARDIOVASCULAR: S1 and S2 plus. RESPIRATORY: Normal vesicular breath sounds. ABDOMEN: Soft, obese, nontender. Bowel sounds heard in all quadrants. EXTREMITIES: Without cyanosis or clubbing. Chronic venous stasis. CENTRAL NERVOUS SYSTEM: AAO x3. Grossly nonfocal. IMPRESSION: 1. Diabetes mellitus, type 2. 2. Hypertension. 3. Dyslipidemia. 4. Obstructive sleep apnea. 5. Chronic venous insufficiency. 6. Left hip fracture, status post open reduction and internal fixation. PLAN: 1. Continue current medications. 2. 1800 calorie heart healthy ADA diet. 3. Accu-Cheks with sliding scale coverage. 4. DVT prophylaxis. 5. Decubitus precautions. 6. Orthopedic precautions. 7. Nocturnal CPAP. 8. Routine laboratory values. Job ID: [id number]
[2019-07-05] MEDS: Enoxaparin Sodium 30 MG/0.3 ML SYRINGE SC SCH (21:00)
[2019-07-05] MEDS: rOPINIRole HCl 1 MG TAB PO SCH (21:01)
[2019-07-05] MEDS: Tamsulosin HCl 0.4 MG CAP PO SCH (21:01)
[2019-07-06] MEDS: Budesonide 0.5 MG/2 ML NEB NEB SCH ×2 (05:17→17:32)
[2019-07-06] MEDS: Levothyroxine Sodium 100 MCG TAB PO SCH (05:17)
[2019-07-06] MEDS: Ferrous Sulfate 325 MG TAB PO SCH ×2 (08:20→17:31)
[2019-07-06] MEDS: Allopurinol 100 MG TAB PO SCH (08:21)
[2019-07-06] MEDS: Amlodipine 5 MG TAB PO SCH (08:22)
[2019-07-06] MEDS: Aspirin 81 mg Enteric Coated Tablet PO SCH (08:22)
[2019-07-06] MEDS: Ascorbic Acid 500 mg Chewable Tablet PO SCH ×2 (08:22→20:47)
[2019-07-06] MEDS: Cyclobenzaprine 10 MG TAB PO SCH ×2 (08:23→20:46)
[2019-07-06] MEDS: hydrALAZINE 25 MG TAB PO SCH ×3 (08:23→20:47)
[2019-07-06] MEDS: Furosemide 40 MG TAB PO SCH ×2 (08:23→14:52)
[2019-07-06] MEDS: Bisacodyl 10 MG SUPP PR SCH (08:23)
[2019-07-06] MEDS: Citalopram 20 MG TAB PO SCH (08:23)
[2019-07-06] MEDS: Gabapentin 300 MG CAP PO SCH ×2 (08:23→20:47)
[2019-07-06] MEDS: Isosorbide Mononitrate (ER) 30 MG TAB PO SCH (08:24)
[2019-07-06] MEDS: Methocarbamol 500 MG TAB PO SCH ×3 (08:24→20:47)
[2019-07-06] MEDS: hydrOXYzine 25 MG TAB PO SCH ×2 (08:24→20:47)
[2019-07-06] MEDS: Losartan Potassium 50 MG TAB PO SCH (08:24)
[2019-07-06] MEDS: Polyethylene Glycol 3350 17 GM Packet PO SCH (08:25)
[2019-07-06] MEDS: Senokot S 8.6-50 MG TAB PO SCH ×2 (08:25→20:46)
[2019-07-06] MEDS: Lantus 1000 UNITS/10 ML VIAL SC SCH (08:33)
--- NOTE | 2019-07-06 13:36 | PRG ---
DATE OF SERVICE: 07/06/2019 SUBJECTIVE: Mr. Marc is doing well. He is getting ready to work with therapy. He denies any questions or concerns. Discussed with therapy and I advised them to make sure someone contact his orthopedic surgeon to hopefully get clarification on his weightbearing status and hopefully he can start bearing more weight. OBJECTIVE: VITAL SIGNS: He is afebrile, heart rate 75, respirations 20, oxygen saturation 123/57, and oxygen saturation is 94%. CARDIOVASCULAR: S1 and S2 plus. RESPIRATORY: Normal vesicular breath sounds. ABDOMEN: Soft and nontender. Bowel sounds heard in all quadrants. EXTREMITIES: Without cyanosis or clubbing. Chronic venous stasis. CENTRAL NERVOUS SYSTEM: Awake and responsive. Generalized weakness. LABORATORY DATA: Blood sugars are good at 135, 147, 166, 100, and 117. IMPRESSION: 1. Diabetes mellitus, type 2. 2. Hypertension. 3. Dyslipidemia. 4. Venous insufficiency. 5. Left hip fracture, status post open reduction and internal fixation. 6. Obstructive sleep apnea. PLAN: 1. Continue current medications. 2. Heart healthy ADA diet. 3. Accu-Cheks with sliding scale coverage. 4. DVT prophylaxis. He is on Lovenox. 5. Decubitus precautions. 6. Stress ulcer prophylaxis. 7. Incision care. 8. Orthopedic precautions. 9. Physical therapy. 10. Routine laboratory values. Job ID: [id number]
[2019-07-06] MEDS: rOPINIRole HCl 1 MG TAB PO SCH (20:46)
[2019-07-06] MEDS: Enoxaparin Sodium 30 MG/0.3 ML SYRINGE SC SCH (20:46)
[2019-07-06] MEDS: Tamsulosin HCl 0.4 MG CAP PO SCH (20:47)
[2019-07-07] MEDS: Budesonide 0.5 MG/2 ML NEB NEB SCH ×2 (05:36→17:44)
[2019-07-07] MEDS: Levothyroxine Sodium 100 MCG TAB PO SCH (05:37)
[2019-07-07] MEDS: Allopurinol 100 MG TAB PO SCH (08:20)
[2019-07-07] MEDS: hydrOXYzine 25 MG TAB PO SCH ×2 (08:20→20:33)
[2019-07-07] MEDS: Amlodipine 5 MG TAB PO SCH (08:20)
[2019-07-07] MEDS: hydrALAZINE 25 MG TAB PO SCH ×3 (08:21→20:34)
[2019-07-07] MEDS: Furosemide 40 MG TAB PO SCH ×2 (08:21→14:31)
[2019-07-07] MEDS: Ferrous Sulfate 325 MG TAB PO SCH ×2 (08:21→17:44)
[2019-07-07] MEDS: Aspirin 81 mg Enteric Coated Tablet PO SCH (08:21)
[2019-07-07] MEDS: Isosorbide Mononitrate (ER) 30 MG TAB PO SCH (08:21)
[2019-07-07] MEDS: Gabapentin 300 MG CAP PO SCH ×2 (08:21→20:34)
[2019-07-07] MEDS: Citalopram 20 MG TAB PO SCH (08:21)
[2019-07-07] MEDS: Ascorbic Acid 500 mg Chewable Tablet PO SCH ×2 (08:21→20:33)
[2019-07-07] MEDS: Cyclobenzaprine 10 MG TAB PO SCH ×2 (08:21→20:34)
[2019-07-07] MEDS: Losartan Potassium 50 MG TAB PO SCH (08:21)
[2019-07-07] MEDS: Senokot S 8.6-50 MG TAB PO SCH ×2 (08:22→20:34)
[2019-07-07] MEDS: Methocarbamol 500 MG TAB PO SCH ×3 (08:22→20:33)
[2019-07-07] MEDS: Lantus 1000 UNITS/10 ML VIAL SC SCH (08:22)
[2019-07-07] MEDS: Bisacodyl 10 MG SUPP PR SCH (09:02)
[2019-07-07] MEDS: Polyethylene Glycol 3350 17 GM Packet PO SCH (09:02)
--- NOTE | 2019-07-07 13:20 | PRG ---
DATE OF SERVICE: 07/07/2019 SUBJECTIVE: Mr. Marc is up in his chair, eating lunch. Discussed with therapy and they are supposedly going to increase his weightbearing 3 weeks after his orthopedic visit, which was 2 weeks ago, so hopefully he would start from Friday. Medically, the patient is doing well. No concerns. OBJECTIVE: VITAL SIGNS: He is afebrile, heart rate 81, respirations 20, oxygen saturation 97% on room air, and blood pressure 121/57. CARDIOVASCULAR SYSTEM: S1 and S2 plus. RESPIRATORY SYSTEM: Normal vesicular breath sounds. ABDOMEN: Soft, obese, and nontender. Bowel sounds heard in all quadrants. EXTREMITIES: Without cyanosis or clubbing. Chronic venous insufficiency. CENTRAL NERVOUS SYSTEM: Awake and responsive. Generalized weakness. IMPRESSION: 1. Left hip fracture, status post open reduction and internal fixation. 2. Diabetes mellitus, type 2. 3. Hypertension. 4. Dyslipidemia. 5. Chronic venous insufficiency. 6. Obstructive sleep apnea. PLAN: 1. Continue current medications. 2. Nutritional support with 1800-calorie heart healthy ADA diet. 3. Accu-Cheks with sliding scale coverage. 4. DVT prophylaxis, he is on Lovenox. 5. Decubitus precautions. 6. Stress ulcer prophylaxis. 7. Orthopedic precautions. 8. Physical therapy. 9. Routine laboratory values. Job ID: [id number]
[2019-07-07] MEDS: Enoxaparin Sodium 30 MG/0.3 ML SYRINGE SC SCH (20:32)
[2019-07-07] MEDS: Tamsulosin HCl 0.4 MG CAP PO SCH (20:33)
[2019-07-07] MEDS: rOPINIRole HCl 1 MG TAB PO SCH (20:34)
[2019-07-08] MEDS: Budesonide 0.5 MG/2 ML NEB NEB SCH ×2 (05:41→17:29)
[2019-07-08] MEDS: Levothyroxine Sodium 100 MCG TAB PO SCH (05:41)
[2019-07-08] MEDS: Polyethylene Glycol 3350 17 GM Packet PO SCH (08:57)
[2019-07-08] MEDS: Methocarbamol 500 MG TAB PO SCH ×3 (08:57→21:46)
[2019-07-08] MEDS: Allopurinol 100 MG TAB PO SCH (08:57)
[2019-07-08] MEDS: Ferrous Sulfate 325 MG TAB PO SCH ×2 (08:57→17:29)
[2019-07-08] MEDS: Gabapentin 300 MG CAP PO SCH ×2 (08:58→21:47)
[2019-07-08] MEDS: Isosorbide Mononitrate (ER) 30 MG TAB PO SCH (08:58)
[2019-07-08] MEDS: hydrALAZINE 25 MG TAB PO SCH ×3 (08:58→21:47)
[2019-07-08] MEDS: Losartan Potassium 50 MG TAB PO SCH (08:58)
[2019-07-08] MEDS: hydrOXYzine 25 MG TAB PO SCH ×2 (08:58→21:47)
[2019-07-08] MEDS: Citalopram 20 MG TAB PO SCH (08:58)
[2019-07-08] MEDS: Amlodipine 5 MG TAB PO SCH (08:58)
[2019-07-08] MEDS: Ascorbic Acid 500 mg Chewable Tablet PO SCH ×2 (08:59→21:47)
[2019-07-08] MEDS: Aspirin 81 mg Enteric Coated Tablet PO SCH (08:59)
[2019-07-08] MEDS: Cyclobenzaprine 10 MG TAB PO SCH ×2 (08:59→21:46)
[2019-07-08] MEDS: Furosemide 40 MG TAB PO SCH ×2 (08:59→14:41)
[2019-07-08] MEDS: Lantus 1000 UNITS/10 ML VIAL SC SCH (08:59)
[2019-07-08] MEDS: Senokot S 8.6-50 MG TAB PO SCH ×2 (08:59→21:46)
[2019-07-08] MEDS: Bisacodyl 10 MG SUPP PR SCH (09:27)
--- NOTE | 2019-07-08 13:28 | PRG ---
DATE OF SERVICE: 07/08/2019 SUBJECTIVE: Mr. Marc is up in his chair and he finished his lunch. He denies any questions or concerns. He is waiting for the day when he can have more weightbearing allowed. OBJECTIVE: VITAL SIGNS: He is afebrile, heart rate 79, respirations 20, oxygen saturation 93% on room air, and blood pressure 131/60. CARDIOVASCULAR SYSTEM: S1 and S2 plus. RESPIRATORY SYSTEM: Normal vesicular breath sounds. ABDOMEN: Soft, obese, and nontender. Bowel sounds heard in all quadrants. EXTREMITIES: Without cyanosis or clubbing. Chronic venous stasis. CENTRAL NERVOUS SYSTEM: Awake and responsive. Generalized weakness. LABORATORY DATA: Blood sugars are 115, 115, 124, 99, and 122. IMPRESSION: 1. Left hip fracture, status post open reduction and internal fixation. 2. Obstructive sleep apnea. 3. Diabetes mellitus, type 2. 4. Hypertension. 5. Dyslipidemia. 6. Chronic venous stasis. PLAN: 1. Continue current medications. 2. 1800 calorie heart healthy ADA diet. 3. Accu-Cheks with sliding scale coverage. 4. DVT prophylaxis. He is on Lovenox. 5. Decubitus precautions. 6. Stress ulcer prophylaxis. 7. Orthopedic precautions. 8. Routine laboratory values. 9. Discussed with the patient in detail and all questions answered. Job ID: [id number]
[2019-07-08] MEDS: rOPINIRole HCl 1 MG TAB PO SCH (21:47)
[2019-07-08] MEDS: Enoxaparin Sodium 30 MG/0.3 ML SYRINGE SC SCH (21:47)
[2019-07-08] MEDS: Tamsulosin HCl 0.4 MG CAP PO SCH (21:47)
[2019-07-09] MEDS: Levothyroxine Sodium 100 MCG TAB PO SCH (05:22)
[2019-07-09] MEDS: Budesonide 0.5 MG/2 ML NEB NEB SCH ×2 (05:35→17:54)
[2019-07-09 05:45] LABS: #Basophils 0.1 thou/uL (0.0-0.2); #Eosinphils 0.9 thou/uL (0.0-0.7); #Lymphocytes 1.6 thou/uL (1.20-3.40); #Neutrophils 4.7 thou/uL (1.40-6.50); %Basophils 1.4 % (0.0-1.0); %Eosinophils 10.9 % (0.0-10.0); %Lymphocytes 19.2 % (21.0-51.0); %Monocytes 11.9 % (0.0-10.0); %Neutrophils 56.6 % (42.0-75.0); Mean Corpuscular HGB CONC 31.7 g/dL (32.0-36.0); Mean Corpuscular Hemoglobin 30.9 pg (27.0-31.0); Mean Corpuscular Volume 97.6 fL (78.0-98.0); Mean Platelet Volume 8.4 fL (7.4-10.4); Platelet Count 163 thou/uL (130-400); RBC Distribution Width 14.3 % (11.5-14.5); Red Blood Cell (RBC) Count 3.55 mill/uL (4.70-6.10); White Blood Cell (WBC) Count 8.3 thou/uL (4.8-10.8)
[2019-07-09 06:04] LABS: Anion Gap 18 mmol/L (10-20); BUN (Urea Nitrogen) 73 mg/dL (8.4-25.7); Calc. Creatinine Clearance 37 mL/min (70-130); Calcium 9.1 mg/dL (7.8-10.44); Carbon Dioxide 29 mmol/L (23-31); Chloride 100 mmol/L (98-107); Estimated GFR-MDRD 22; Glucose 94 mg/dL (83-110); Potassium 4.5 mmol/L (3.5-5.1); Sodium 142 mmol/L (136-145)
[2019-07-09] MEDS: Polyethylene Glycol 3350 17 GM Packet PO SCH (08:38)
[2019-07-09] MEDS: Methocarbamol 500 MG TAB PO SCH ×3 (08:41→21:27)
[2019-07-09] MEDS: Aspirin 81 mg Enteric Coated Tablet PO SCH (08:42)
[2019-07-09] MEDS: Gabapentin 300 MG CAP PO SCH ×2 (08:42→21:27)
[2019-07-09] MEDS: Ferrous Sulfate 325 MG TAB PO SCH ×2 (08:42→17:19)
[2019-07-09] MEDS: Isosorbide Mononitrate (ER) 30 MG TAB PO SCH (08:42)
[2019-07-09] MEDS: Furosemide 40 MG TAB PO SCH ×2 (08:42→14:38)
[2019-07-09] MEDS: Losartan Potassium 50 MG TAB PO SCH (08:42)
[2019-07-09] MEDS: Cyclobenzaprine 10 MG TAB PO SCH ×2 (08:42→21:27)
[2019-07-09] MEDS: hydrALAZINE 25 MG TAB PO SCH ×3 (08:42→21:27)
[2019-07-09] MEDS: Allopurinol 100 MG TAB PO SCH (08:43)
[2019-07-09] MEDS: hydrOXYzine 25 MG TAB PO SCH ×2 (08:44→21:27)
[2019-07-09] MEDS: Amlodipine 5 MG TAB PO SCH (08:44)
[2019-07-09] MEDS: Ascorbic Acid 500 mg Chewable Tablet PO SCH ×2 (08:45→21:27)
[2019-07-09] MEDS: Citalopram 20 MG TAB PO SCH (08:45)
[2019-07-09] MEDS: Senokot S 8.6-50 MG TAB PO SCH ×2 (08:45→21:27)
[2019-07-09] MEDS: Bisacodyl 10 MG SUPP PR SCH (08:47)
[2019-07-09] MEDS: Lantus 1000 UNITS/10 ML VIAL SC SCH (08:48)
--- NOTE | 2019-07-09 18:08 | PRG ---
DATE OF SERVICE: 07/09/2019 SUBJECTIVE: Mr. Marc is resting in bed. He denies any concerns. No family at bedside. Discussed with nursing. OBJECTIVE: VITAL SIGNS: He is afebrile, heart rate 84, respirations 18, oxygen saturation 98% on room air, blood pressure 141/62. CARDIOVASCULAR: S1 and S2 plus. RESPIRATORY: Normal vesicular breath sounds. ABDOMEN: Soft, obese, and nontender. Bowel sounds heard in all quadrants. EXTREMITIES: Chronic venous insufficiency and stasis dermatitis. CENTRAL NERVOUS SYSTEM: Awake and responsive. Generalized weakness. LABORATORY VALUES: White count is 8.3, H and H are 11 and 34.6. Sodium 142, potassium 4.5, BUN and creatinine are 73 and 2.84. Blood sugars are 140, 98, 103, and 136. IMPRESSION: 1. Diabetes mellitus, type 2. 2. Hypertension. 3. Dyslipidemia. 4. Obstructive sleep apnea. 5. Left hip fracture, status post open reduction and internal fixation. 6. Increasing azotemia and chronic kidney disease, stage 3 to 4. PLAN: 1. Continue current medications. 2. 1800-calorie heart-healthy ADA diet. 3. Hold Lasix for a couple of days and then reduce it to 40 once daily. 4. Accu-Cheks with sliding scale coverage. 5. DVT prophylaxis on Lovenox. 6. Decubitus precaution. 7. Stress ulcer prophylaxis. 8. Recheck BMP on Friday. Job ID: [id number]
[2019-07-09] MEDS: Enoxaparin Sodium 30 MG/0.3 ML SYRINGE SC SCH (21:27)
[2019-07-09] MEDS: rOPINIRole HCl 1 MG TAB PO SCH (21:27)
[2019-07-09] MEDS: Tamsulosin HCl 0.4 MG CAP PO SCH (21:27)
[2019-07-10] MEDS: Levothyroxine Sodium 100 MCG TAB PO SCH (05:22)
[2019-07-10] MEDS: Budesonide 0.5 MG/2 ML NEB NEB SCH ×2 (05:40→17:32)
[2019-07-10] MEDS: Allopurinol 100 MG TAB PO SCH (08:44)
[2019-07-10] MEDS: Ferrous Sulfate 325 MG TAB PO SCH ×2 (08:44→17:31)
[2019-07-10] MEDS: Aspirin 81 mg Enteric Coated Tablet PO SCH (08:45)
[2019-07-10] MEDS: Ascorbic Acid 500 mg Chewable Tablet PO SCH ×2 (08:45→21:09)
[2019-07-10] MEDS: Amlodipine 5 MG TAB PO SCH (08:45)
[2019-07-10] MEDS: Cyclobenzaprine 10 MG TAB PO SCH ×2 (08:46→21:09)
[2019-07-10] MEDS: hydrOXYzine 25 MG TAB PO SCH ×2 (08:46→21:09)
[2019-07-10] MEDS: Gabapentin 300 MG CAP PO SCH ×2 (08:46→21:09)
[2019-07-10] MEDS: Bisacodyl 10 MG SUPP PR SCH (08:46)
[2019-07-10] MEDS: Citalopram 20 MG TAB PO SCH (08:46)
[2019-07-10] MEDS: hydrALAZINE 25 MG TAB PO SCH ×3 (08:46→21:10)
[2019-07-10] MEDS: Losartan Potassium 50 MG TAB PO SCH (08:47)
[2019-07-10] MEDS: Lantus 1000 UNITS/10 ML VIAL SC SCH (08:47)
[2019-07-10] MEDS: Isosorbide Mononitrate (ER) 30 MG TAB PO SCH (08:47)
[2019-07-10] MEDS: Polyethylene Glycol 3350 17 GM Packet PO SCH (08:48)
[2019-07-10] MEDS: Methocarbamol 500 MG TAB PO SCH ×3 (08:48→21:10)
[2019-07-10] MEDS: Senokot S 8.6-50 MG TAB PO SCH ×2 (08:48→21:09)
[2019-07-10] MEDS: rOPINIRole HCl 1 MG TAB PO SCH (21:09)
[2019-07-10] MEDS: Tamsulosin HCl 0.4 MG CAP PO SCH (21:09)
[2019-07-10] MEDS: Enoxaparin Sodium 30 MG/0.3 ML SYRINGE SC SCH (21:10)
[2019-07-11] MEDS: Levothyroxine Sodium 100 MCG TAB PO SCH (05:19)
[2019-07-11] MEDS: Budesonide 0.5 MG/2 ML NEB NEB SCH ×2 (05:38→17:31)
--- NOTE | 2019-07-11 06:38 | PRG ---
DATE OF SERVICE: 07/10/2019 SUBJECTIVE: The patient is resting in bed with no complaints. He tolerated therapy well yesterday, eating well today, has no shortness of breath. OBJECTIVE: VITAL SIGNS: Show temperature is 98.3, pulse 81, respirations 20, O2 sats 95% on room air, and blood pressure 122/55. LUNGS: Clear. CARDIAC: Shows regular rhythm. ABDOMEN: Soft, nontender. PELVIS: Left hip incision appears to be healing well. ASSESSMENT: 1. Diabetes, type 2, controlled to goal. 2. Hypertension, controlled to goal. 3. Dyslipidemia, stable. 4. Obstructive sleep apnea. 5. Healing left hip fracture, status post open reduction and internal fixation. 6. Chronic kidney disease 4 with labs to be checked on Friday per Dr. Brito. PLAN: Continue PT/OT. Continue off diuretics. Continue to monitor for fluid retention. Continue Accu-Cheks to monitor and titrate and control diabetes. Check basement profile in 2 days. Job ID: [id number]
[2019-07-11] MEDS: Ferrous Sulfate 325 MG TAB PO SCH ×2 (08:42→17:30)
[2019-07-11] MEDS: Allopurinol 100 MG TAB PO SCH (08:42)
[2019-07-11] MEDS: Furosemide 40 MG TAB PO SCH (08:42)
[2019-07-11] MEDS: Ascorbic Acid 500 mg Chewable Tablet PO SCH ×2 (08:43→21:25)
[2019-07-11] MEDS: Amlodipine 5 MG TAB PO SCH (08:43)
[2019-07-11] MEDS: Bisacodyl 10 MG SUPP PR SCH (08:44)
[2019-07-11] MEDS: Citalopram 20 MG TAB PO SCH (08:44)
[2019-07-11] MEDS: Aspirin 81 mg Enteric Coated Tablet PO SCH (08:44)
[2019-07-11] MEDS: Lantus 1000 UNITS/10 ML VIAL SC SCH (08:45)
[2019-07-11] MEDS: hydrOXYzine 25 MG TAB PO SCH ×2 (08:45→21:25)
[2019-07-11] MEDS: Gabapentin 300 MG CAP PO SCH ×2 (08:45→21:25)
[2019-07-11] MEDS: Cyclobenzaprine 10 MG TAB PO SCH ×2 (08:45→21:25)
[2019-07-11] MEDS: hydrALAZINE 25 MG TAB PO SCH ×3 (08:45→21:26)
[2019-07-11] MEDS: Losartan Potassium 50 MG TAB PO SCH (08:46)
[2019-07-11] MEDS: Isosorbide Mononitrate (ER) 30 MG TAB PO SCH (08:46)
[2019-07-11] MEDS: Polyethylene Glycol 3350 17 GM Packet PO SCH (08:47)
[2019-07-11] MEDS: Senokot S 8.6-50 MG TAB PO SCH ×2 (08:47→21:25)
[2019-07-11] MEDS: Methocarbamol 500 MG TAB PO SCH ×3 (08:47→21:25)
[2019-07-11] MEDS: Tamsulosin HCl 0.4 MG CAP PO SCH (21:25)
[2019-07-11] MEDS: rOPINIRole HCl 1 MG TAB PO SCH (21:25)
[2019-07-11] MEDS: Enoxaparin Sodium 30 MG/0.3 ML SYRINGE SC SCH (21:25)
[2019-07-12] MEDS: Levothyroxine Sodium 100 MCG TAB PO SCH (05:18)
[2019-07-12] MEDS: Budesonide 0.5 MG/2 ML NEB NEB SCH ×2 (05:32→18:02)
[2019-07-12] MEDS: Ferrous Sulfate 325 MG TAB PO SCH ×2 (08:38→17:37)
[2019-07-12] MEDS: Aspirin 81 mg Enteric Coated Tablet PO SCH (08:39)
[2019-07-12] MEDS: hydrALAZINE 25 MG TAB PO SCH ×3 (08:39→21:20)
[2019-07-12] MEDS: hydrOXYzine 25 MG TAB PO SCH ×2 (08:39→21:20)
[2019-07-12] MEDS: Citalopram 20 MG TAB PO SCH (08:40)
[2019-07-12] MEDS: Furosemide 40 MG TAB PO SCH (08:40)
[2019-07-12] MEDS: Losartan Potassium 50 MG TAB PO SCH (08:40)
[2019-07-12] MEDS: Cyclobenzaprine 10 MG TAB PO SCH ×2 (08:41→21:19)
[2019-07-12] MEDS: Allopurinol 100 MG TAB PO SCH (08:41)
[2019-07-12] MEDS: Gabapentin 300 MG CAP PO SCH ×2 (08:41→21:20)
[2019-07-12] MEDS: Methocarbamol 500 MG TAB PO SCH ×3 (08:42→21:20)
[2019-07-12] MEDS: Ascorbic Acid 500 mg Chewable Tablet PO SCH ×2 (08:42→21:19)
[2019-07-12] MEDS: Senokot S 8.6-50 MG TAB PO SCH ×2 (08:43→21:21)
[2019-07-12] MEDS: Amlodipine 5 MG TAB PO SCH (08:43)
[2019-07-12] MEDS: Bisacodyl 10 MG SUPP PR SCH (08:44)
[2019-07-12] MEDS: Polyethylene Glycol 3350 17 GM Packet PO SCH (08:44)
[2019-07-12] MEDS: Isosorbide Mononitrate (ER) 30 MG TAB PO SCH (08:44)
[2019-07-12] MEDS: Lantus 1000 UNITS/10 ML VIAL SC SCH (08:45)
--- NOTE | 2019-07-12 14:02 | PRG ---
DATE OF SERVICE: 07/12/2019 SUBJECTIVE: Mr. Marc is resting in bed and waiting on therapy. He had a restful weekend. He denies any questions or concerns. No family at bedside. OBJECTIVE: VITAL SIGNS: He is afebrile, heart rate 81, respirations 18, oxygen saturation 98% on room air, blood pressure 156/65. CARDIOVASCULAR: S1 and S2 plus. RESPIRATORY: Normal vesicular breath sounds. ABDOMEN: Soft and nontender. Bowel sounds heard in all quadrants. Obese. EXTREMITIES: Without cyanosis or clubbing. Chronic venous stasis. CENTRAL NERVOUS SYSTEM: Awake and responsive. Generalized weakness. Grossly nonfocal. IMPRESSION: 1. Left hip fracture, status post open reduction and internal fixation. 2. Diabetes mellitus, type 2. 3. Hypertension. 4. Dyslipidemia. 5. Obesity. 6. Obstructive sleep apnea. 7. Chronic venous insufficiency. PLAN: 1. Continue current medications. 2. 1800-calorie heart-healthy ADA diet. 3. Accu-Cheks with sliding scale coverage. 4. DVT prophylaxis - he is on Lovenox. 5. Decubitus precautions. 6. Stress ulcer prophylaxis. 7. Physical therapy. 8. Routine laboratory values. 9. Discussed with the patient and nursing in detail. All questions were answered. Job ID: [id number]
[2019-07-12] MEDS: Enoxaparin Sodium 30 MG/0.3 ML SYRINGE SC SCH (21:20)
[2019-07-12] MEDS: rOPINIRole HCl 1 MG TAB PO SCH (21:21)
[2019-07-12] MEDS: Tamsulosin HCl 0.4 MG CAP PO SCH (21:21)
[2019-07-13 05:36] LABS: Anion Gap 17 mmol/L (10-20); BUN (Urea Nitrogen) 68 mg/dL (8.4-25.7); Calc. Creatinine Clearance 41 mL/min (70-130); Calcium 9.1 mg/dL (7.8-10.44); Carbon Dioxide 28 mmol/L (23-31); Chloride 101 mmol/L (98-107); Estimated GFR-MDRD 24; Glucose 107 mg/dL (83-110); Potassium 4.7 mmol/L (3.5-5.1); Sodium 141 mmol/L (136-145)
[2019-07-13] MEDS: Levothyroxine Sodium 100 MCG TAB PO SCH (05:50)
[2019-07-13] MEDS: Budesonide 0.5 MG/2 ML NEB NEB SCH ×2 (05:51→17:50)
[2019-07-13] MEDS: hydrALAZINE 25 MG TAB PO SCH ×3 (08:19→20:56)
[2019-07-13] MEDS: Methocarbamol 500 MG TAB PO SCH ×3 (08:19→20:57)
[2019-07-13] MEDS: Gabapentin 300 MG CAP PO SCH ×2 (08:19→20:56)
[2019-07-13] MEDS: Losartan Potassium 50 MG TAB PO SCH (08:19)
[2019-07-13] MEDS: Amlodipine 5 MG TAB PO SCH (08:19)
[2019-07-13] MEDS: Furosemide 40 MG TAB PO SCH (08:19)
[2019-07-13] MEDS: Aspirin 81 mg Enteric Coated Tablet PO SCH (08:20)
[2019-07-13] MEDS: Citalopram 20 MG TAB PO SCH (08:20)
[2019-07-13] MEDS: Allopurinol 100 MG TAB PO SCH (08:20)
[2019-07-13] MEDS: hydrOXYzine 25 MG TAB PO SCH ×2 (08:20→20:57)
[2019-07-13] MEDS: Ferrous Sulfate 325 MG TAB PO SCH ×2 (08:20→17:50)
[2019-07-13] MEDS: Cyclobenzaprine 10 MG TAB PO SCH ×2 (08:20→20:56)
[2019-07-13] MEDS: Lantus 1000 UNITS/10 ML VIAL SC SCH (08:20)
[2019-07-13] MEDS: Isosorbide Mononitrate (ER) 30 MG TAB PO SCH (08:20)
[2019-07-13] MEDS: Ascorbic Acid 500 mg Chewable Tablet PO SCH ×2 (08:20→20:56)
[2019-07-13] MEDS: Senokot S 8.6-50 MG TAB PO SCH ×2 (08:26→20:58)
[2019-07-13] MEDS: Bisacodyl 10 MG SUPP PR SCH (08:26)
[2019-07-13] MEDS: Polyethylene Glycol 3350 17 GM Packet PO SCH (08:26)
--- NOTE | 2019-07-13 09:59 | PRG ---
DATE OF SERVICE: 07/13/2019 SUBJECTIVE: Mr. Marc is doing well. Today, he apparently did not participate with therapy due to some loose stools. Discussed with Therapy and he is supposed to be advanced to weightbearing as tolerated and advised them to just confirm it with Orthopedic Surgery as there is a question of whether it is two weeks or three weeks before they advance his weightbearing. OBJECTIVE: VITAL SIGNS: He is afebrile, heart rate 79, respirations 18, oxygen saturation 96% on room air, and blood pressure 129/62. CARDIOVASCULAR: S1 and S2 plus. RESPIRATORY: Normal vesicular breath sounds. ABDOMEN: Soft, obese, nontender. Bowel sounds heard in all quadrants. EXTREMITIES: Without cyanosis or clubbing. Chronic venous insufficiency. CENTRAL NERVOUS SYSTEM: Awake and responsive. Generalized weakness. LABORATORY VALUES: Show improving renal function. Sodium 141, potassium 4.7, BUN and creatinine 68 and 2.56. Blood sugars are 99, 121, 48. IMPRESSION: 1. Left hip fracture, status post open reduction and internal fixation. 2. Diabetes mellitus type 2. 3. Hypertension. 4. Dyslipidemia. 5. Chronic kidney disease stage 4. 6. Obstructive sleep apnea. 7. Chronic venous insufficiency. PLAN: 1. Continue current medications. 2. 1800 calorie heart healthy ADA diet. 3. Accu-Cheks with sliding scale coverage. 4. Monitor blood pressure and adjust medications as needed. 5. Orthopedic precautions. 6. DVT prophylaxis-the patient is on Lovenox. 7. Monitor renal function. 8. Tolerating lower dose of Lasix. We will continue to monitor for any decompensation. 9. Continue physical therapy and routine laboratory values. Job ID: [id number]
[2019-07-13] MEDS: Tamsulosin HCl 0.4 MG CAP PO SCH (20:56)
[2019-07-13] MEDS: Enoxaparin Sodium 30 MG/0.3 ML SYRINGE SC SCH (20:56)
[2019-07-13] MEDS: rOPINIRole HCl 1 MG TAB PO SCH (20:57)
[2019-07-14] MEDS: Levothyroxine Sodium 100 MCG TAB PO SCH (06:08)
[2019-07-14] MEDS: Budesonide 0.5 MG/2 ML NEB NEB SCH ×2 (06:09→18:00)
[2019-07-14] MEDS: Ferrous Sulfate 325 MG TAB PO SCH ×2 (07:48→17:13)
[2019-07-14] MEDS: Furosemide 40 MG TAB PO SCH (07:48)
[2019-07-14] MEDS: Amlodipine 5 MG TAB PO SCH (07:49)
[2019-07-14] MEDS: Allopurinol 100 MG TAB PO SCH (07:49)
[2019-07-14] MEDS: Citalopram 20 MG TAB PO SCH (07:50)
[2019-07-14] MEDS: Bisacodyl 10 MG SUPP PR SCH (07:50)
[2019-07-14] MEDS: Aspirin 81 mg Enteric Coated Tablet PO SCH (07:50)
[2019-07-14] MEDS: Ascorbic Acid 500 mg Chewable Tablet PO SCH ×2 (07:50→20:19)
[2019-07-14] MEDS: hydrALAZINE 25 MG TAB PO SCH ×3 (07:51→20:20)
[2019-07-14] MEDS: Gabapentin 300 MG CAP PO SCH ×2 (07:51→20:20)
[2019-07-14] MEDS: Cyclobenzaprine 10 MG TAB PO SCH ×2 (07:51→20:19)
[2019-07-14] MEDS: Isosorbide Mononitrate (ER) 30 MG TAB PO SCH (07:52)
[2019-07-14] MEDS: Lantus 1000 UNITS/10 ML VIAL SC SCH (07:52)
[2019-07-14] MEDS: Losartan Potassium 50 MG TAB PO SCH (07:52)
[2019-07-14] MEDS: hydrOXYzine 25 MG TAB PO SCH ×2 (07:52→20:20)
[2019-07-14] MEDS: Polyethylene Glycol 3350 17 GM Packet PO SCH (07:53)
[2019-07-14] MEDS: Methocarbamol 500 MG TAB PO SCH ×3 (07:53→20:20)
[2019-07-14] MEDS: Senokot S 8.6-50 MG TAB PO SCH ×2 (07:54→20:21)
--- NOTE | 2019-07-14 12:20 | PRG ---
DATE OF SERVICE: 07/14/2019 SUBJECTIVE: Mr. Marc is doing well, denies any complaints. Resting comfortably. Discussed with Therapy, and apparently, he is going to be weightbearing as tolerated from this Friday. He apparently is doing well with therapy. OBJECTIVE: VITAL SIGNS: He is afebrile. Heart rate 77, respirations 20, oxygen saturation 94%, and blood pressure 131/61. No further diarrhea. CARDIOVASCULAR SYSTEM: S1 and S2 plus. RESPIRATORY SYSTEM: Normal vesicular breath sounds. ABDOMEN: Soft, obese, nontender. Bowel sounds heard in all quadrants. EXTREMITIES: Without cyanosis or clubbing. Chronic venous stasis. CENTRAL NERVOUS SYSTEM: Awake and responsive. Generalized weakness. IMPRESSION: 1. Left hip fracture, status post open reduction and internal fixation. 2. Obstructive sleep apnea. 3. Diabetes mellitus, type 2. 4. Hypertension. 5. Dyslipidemia. 6. Morbid obesity. 7. Chronic venous insufficiency. PLAN: 1. Continue current medications. 2. 1800 calorie heart-healthy ADA diet. His blood sugars are under excellent control. 3. Accu-Cheks with sliding scale coverage. 4. DVT prophylaxis-the patient is on Lovenox. 5. Decubitus precautions. 6. Stress ulcer prophylaxis. 7. Reinforced compliance with CPAP. 8. Therapy. 9. Routine laboratory values. Job ID: [id number]
[2019-07-14] MEDS: HumaLOG 300 UNITS/3 ML VIAL SC PRN (17:16)
[2019-07-14] MEDS: Enoxaparin Sodium 30 MG/0.3 ML SYRINGE SC SCH (20:20)
[2019-07-14] MEDS: Tamsulosin HCl 0.4 MG CAP PO SCH (20:21)
[2019-07-14] MEDS: rOPINIRole HCl 1 MG TAB PO SCH (20:21)
[2019-07-15] MEDS: Levothyroxine Sodium 100 MCG TAB PO SCH (05:24)
[2019-07-15] MEDS: Budesonide 0.5 MG/2 ML NEB NEB SCH ×2 (05:24→18:10)
[2019-07-15] MEDS: Methocarbamol 500 MG TAB PO SCH ×3 (08:19→20:32)
[2019-07-15] MEDS: Senokot S 8.6-50 MG TAB PO SCH ×2 (08:20→20:31)
[2019-07-15] MEDS: Furosemide 40 MG TAB PO SCH (08:20)
[2019-07-15] MEDS: hydrOXYzine 25 MG TAB PO SCH ×2 (08:20→20:31)
[2019-07-15] MEDS: Ferrous Sulfate 325 MG TAB PO SCH ×2 (08:20→17:21)
[2019-07-15] MEDS: Losartan Potassium 50 MG TAB PO SCH (08:20)
[2019-07-15] MEDS: Allopurinol 100 MG TAB PO SCH (08:21)
[2019-07-15] MEDS: hydrALAZINE 25 MG TAB PO SCH ×3 (08:21→20:31)
[2019-07-15] MEDS: Cyclobenzaprine 10 MG TAB PO SCH ×2 (08:21→20:32)
[2019-07-15] MEDS: Citalopram 20 MG TAB PO SCH (08:22)
[2019-07-15] MEDS: Ascorbic Acid 500 mg Chewable Tablet PO SCH ×2 (08:22→20:32)
[2019-07-15] MEDS: Gabapentin 300 MG CAP PO SCH ×2 (08:22→20:30)
[2019-07-15] MEDS: Aspirin 81 mg Enteric Coated Tablet PO SCH (08:22)
[2019-07-15] MEDS: Isosorbide Mononitrate (ER) 30 MG TAB PO SCH (08:23)
[2019-07-15] MEDS: Bisacodyl 10 MG SUPP PR SCH (08:23)
[2019-07-15] MEDS: Amlodipine 5 MG TAB PO SCH (08:23)
[2019-07-15] MEDS: Polyethylene Glycol 3350 17 GM Packet PO SCH (08:25)
[2019-07-15] MEDS: Lantus 1000 UNITS/10 ML VIAL SC SCH (08:29)
--- NOTE | 2019-07-15 13:27 | PRG ---
DATE OF SERVICE: 07/15/2019 SUBJECTIVE: Mr. Marc is doing well, just finished his lunch, discussed with his . No concerns or questions. OBJECTIVE: VITAL SIGNS: He is afebrile, heart rate 77, respirations 20, oxygen saturation 93% on room air, blood pressure 132/60. CARDIOVASCULAR: S1 and S2 plus. RESPIRATORY: Normal vesicular breath sounds. ABDOMEN: Soft, obese, and nontender. Bowel sounds heard in all quadrants. EXTREMITIES: Chronic venous insufficiency. CENTRAL NERVOUS SYSTEM: Awake and responsive. Generalized weakness. Grossly nonfocal. LABORATORY DATA: His blood sugars are 160, 138, 107, and 129. IMPRESSION: 1. Left hip fracture, status post open reduction and internal fixation. 2. Obstructive sleep apnea. 3. Diabetes mellitus, type 2. 4. Hypertension. 5. Dyslipidemia. 6. Morbid obesity. 7. Chronic venous insufficiency. 8. Chronic kidney disease, stage 3 to 4. PLAN: 1. Continue current medications. 2. Nutritional support with 1800-calorie heart-healthy ADA diet. 3. Accu-Cheks with sliding scale coverage. 4. Continue Lovenox for DVT prophylaxis. 5. Increasing to weightbearing as tolerated from tomorrow. 6. Reinforced compliance with CPAP. 7. Check BMP tomorrow. 8. Continue therapy. Job ID: [id number]
[2019-07-15] MEDS: rOPINIRole HCl 1 MG TAB PO SCH (20:30)
[2019-07-15] MEDS: Tamsulosin HCl 0.4 MG CAP PO SCH (20:30)
[2019-07-15] MEDS: Enoxaparin Sodium 30 MG/0.3 ML SYRINGE SC SCH (20:32)
[2019-07-16 05:09] LABS: #Basophils 0.1 thou/uL (0.0-0.2); #Eosinphils 0.8 thou/uL (0.0-0.7); #Lymphocytes 1.3 thou/uL (1.20-3.40); #Neutrophils 8.6 thou/uL (1.40-6.50); %Basophils 0.9 % (0.0-1.0); %Eosinophils 6.5 % (0.0-10.0); %Lymphocytes 11.2 % (21.0-51.0); %Monocytes 8.1 % (0.0-10.0); %Neutrophils 73.3 % (42.0-75.0); Hemoglobin 10.5 g/dL (14.0-18.0); Mean Corpuscular HGB CONC 32.2 g/dL (32.0-36.0); Mean Corpuscular Volume 96.1 fL (78.0-98.0); Mean Platelet Volume 8.5 fL (7.4-10.4); Platelet Count 150 thou/uL (130-400); RBC Distribution Width 13.4 % (11.5-14.5); Red Blood Cell (RBC) Count 3.39 mill/uL (4.70-6.10); White Blood Cell (WBC) Count 11.7 thou/uL (4.8-10.8)
[2019-07-16 05:27] LABS: Anion Gap 18 mmol/L (10-20); BUN (Urea Nitrogen) 79 mg/dL (8.4-25.7); Calc. Creatinine Clearance 35 mL/min (70-130); Carbon Dioxide 26 mmol/L (23-31); Chloride 101 mmol/L (98-107); Estimated GFR-MDRD 21; Glucose 103 mg/dL (83-110); Potassium 4.8 mmol/L (3.5-5.1); Sodium 140 mmol/L (136-145)
[2019-07-16] MEDS: Budesonide 0.5 MG/2 ML NEB NEB SCH ×2 (05:41→17:47)
[2019-07-16] MEDS: Levothyroxine Sodium 100 MCG TAB PO SCH (05:41)
--- NOTE | 2019-07-16 08:55 | PRG ---
DATE OF SERVICE: 07/16/2019 SUBJECTIVE: Mr. Marc is doing well. Today is the day where he is going to be doing weightbearing as tolerated, so he is anxiously waiting on therapy. No family at bedside. OBJECTIVE: VITAL SIGNS: He is afebrile, heart rate 80, respirations 20, oxygen saturation 92% on room air, and blood pressure 126/56. CARDIOVASCULAR SYSTEM: S1-S2 plus. RESPIRATORY SYSTEM: Normal vesicular breath sounds. ABDOMEN: Soft, obese, and nontender. Bowel sounds heard in all quadrants. EXTREMITIES: Without cyanosis or clubbing. Peripheral pulses are palpable. CENTRAL NERVOUS SYSTEM: Awake and responsive. Generalized weakness. LABORATORY VALUES: Show a white count of 11.7, H and H are 10.5 and 32.6. Sodium 140, potassium 4.8, BUN and creatinine are 79 and 2.94, it is worse than before. Blood sugars are 129, 140, 156, and 96. IMPRESSION: 1. Left hip fracture, status post open reduction and internal fixation. 2. Chronic kidney disease, stage 3 to 4, worsening. 3. Hypertension. 4. Diabetes mellitus, type 2. 5. Dyslipidemia. 6. Obstructive sleep apnea. 7. Morbid obesity. 8. Chronic venous insufficiency. PLAN: We will hold Lasix for a couple of days. Discontinue Flexeril and change Robaxin to p.r.n. Encourage p.o. fluid intake. 1800-calorie heart-healthy ADA diet. Continue physical therapy. Accu-Cheks with sliding-scale coverage and routine laboratory values. Job ID: [id number]
[2019-07-16] MEDS: Methocarbamol 500 MG TAB PO PRN ×2 (09:05→20:31)
[2019-07-16] MEDS: Allopurinol 100 MG TAB PO SCH (09:07)
[2019-07-16] MEDS: Ascorbic Acid 500 mg Chewable Tablet PO SCH ×2 (09:07→20:32)
[2019-07-16] MEDS: Gabapentin 300 MG CAP PO SCH ×2 (09:08→20:32)
[2019-07-16] MEDS: Ferrous Sulfate 325 MG TAB PO SCH ×2 (09:08→17:45)
[2019-07-16] MEDS: Aspirin 81 mg Enteric Coated Tablet PO SCH (09:08)
[2019-07-16] MEDS: Citalopram 20 MG TAB PO SCH (09:08)
[2019-07-16] MEDS: Losartan Potassium 50 MG TAB PO SCH (09:09)
[2019-07-16] MEDS: hydrOXYzine 25 MG TAB PO SCH ×2 (09:09→20:32)
[2019-07-16] MEDS: Isosorbide Mononitrate (ER) 30 MG TAB PO SCH (09:09)
[2019-07-16] MEDS: hydrALAZINE 25 MG TAB PO SCH ×3 (09:10→20:32)
[2019-07-16] MEDS: Amlodipine 5 MG TAB PO SCH (09:10)
[2019-07-16] MEDS: Lantus 1000 UNITS/10 ML VIAL SC SCH (09:11)
[2019-07-16] MEDS: Polyethylene Glycol 3350 17 GM Packet PO SCH (09:17)
[2019-07-16] MEDS: Bisacodyl 10 MG SUPP PR SCH (09:17)
[2019-07-16] MEDS: Senokot S 8.6-50 MG TAB PO SCH ×2 (09:17→20:33)
[2019-07-16] MEDS: Furosemide 40 MG TAB PO SCH (20:27)
[2019-07-16] MEDS: Enoxaparin Sodium 30 MG/0.3 ML SYRINGE SC SCH (20:31)
[2019-07-16] MEDS: rOPINIRole HCl 1 MG TAB PO SCH (20:32)
[2019-07-16] MEDS: Tamsulosin HCl 0.4 MG CAP PO SCH (20:32)
[2019-07-17] MEDS: Levothyroxine Sodium 100 MCG TAB PO SCH (05:20)
[2019-07-17] MEDS: Budesonide 0.5 MG/2 ML NEB NEB SCH ×2 (05:20→18:09)
[2019-07-17] MEDS: Amlodipine 5 MG TAB PO SCH (08:45)
[2019-07-17] MEDS: Ascorbic Acid 500 mg Chewable Tablet PO SCH ×2 (08:45→20:38)
[2019-07-17] MEDS: Isosorbide Mononitrate (ER) 30 MG TAB PO SCH (08:45)
[2019-07-17] MEDS: Allopurinol 100 MG TAB PO SCH (08:45)
[2019-07-17] MEDS: Senokot S 8.6-50 MG TAB PO SCH ×2 (08:45→20:38)
[2019-07-17] MEDS: Aspirin 81 mg Enteric Coated Tablet PO SCH (08:45)
[2019-07-17] MEDS: Ferrous Sulfate 325 MG TAB PO SCH ×2 (08:46→17:58)
[2019-07-17] MEDS: Gabapentin 300 MG CAP PO SCH ×2 (08:46→20:38)
[2019-07-17] MEDS: Losartan Potassium 50 MG TAB PO SCH (08:46)
[2019-07-17] MEDS: Citalopram 20 MG TAB PO SCH (08:46)
[2019-07-17] MEDS: Polyethylene Glycol 3350 17 GM Packet PO SCH (08:46)
[2019-07-17] MEDS: hydrALAZINE 25 MG TAB PO SCH ×3 (08:46→20:37)
[2019-07-17] MEDS: hydrOXYzine 25 MG TAB PO SCH ×2 (08:46→20:38)
[2019-07-17] MEDS: Lantus 1000 UNITS/10 ML VIAL SC SCH (08:47)
[2019-07-17] MEDS: Bisacodyl 10 MG SUPP PR SCH (08:48)
--- NOTE | 2019-07-17 11:19 | PRG ---
DATE OF SERVICE: 07/17/2019 SUBJECTIVE: Mr. Marc is doing well. He is noticing more pain since he was able to put more weight on his legs. He apparently walked about 15 feet. No family at bedside. Discussed with nursing. OBJECTIVE: VITAL SIGNS: He is afebrile, heart rate 81, respirations 20, oxygen saturation 95% on room air, and blood pressure 129/59. CARDIOVASCULAR SYSTEM: S1 and S2 plus. RESPIRATORY SYSTEM: Normal vesicular breath sounds. ABDOMEN: Soft, obese, nontender. Bowel sounds heard in all quadrants. EXTREMITIES: Without cyanosis or clubbing. Chronic venous insufficiency. CENTRAL NERVOUS SYSTEM: Awake and responsive. Generalized weakness. LABORATORY DATA: His blood sugars are 118, 152, 161, and 91. IMPRESSION: 1. Left hip fracture status post open reduction and internal fixation. 2. Chronic kidney disease, stage 4. 3. Diabetes mellitus, type 2. 4. Hypertension. 5. Dyslipidemia. 6. Obstructive sleep apnea. 7. Chronic venous insufficiency. PLAN: 1. Continue current medications. 2. 1800-calorie heart healthy ADA diet. 3. Accu-Cheks with sliding scale coverage. 4. DVT prophylaxis, he is on Lovenox. 5. Decubitus precautions. 6. Stress ulcer prophylaxis. 7. Orthopedic precautions. 8. Routine laboratory values. He is off his Lasix. We will monitor and recheck [facility] tomorrow. Job ID: [id number]
[2019-07-17] MEDS: Enoxaparin Sodium 30 MG/0.3 ML SYRINGE SC SCH (20:37)
[2019-07-17] MEDS: rOPINIRole HCl 1 MG TAB PO SCH (20:37)
[2019-07-17] MEDS: Tamsulosin HCl 0.4 MG CAP PO SCH (20:38)
[2019-07-18] MEDS: Budesonide 0.5 MG/2 ML NEB NEB SCH ×2 (05:27→18:18)
[2019-07-18] MEDS: Levothyroxine Sodium 100 MCG TAB PO SCH (05:27)
[2019-07-18] MEDS: Ferrous Sulfate 325 MG TAB PO SCH ×2 (07:56→16:41)
[2019-07-18] MEDS: Allopurinol 100 MG TAB PO SCH (09:34)
[2019-07-18] MEDS: Aspirin 81 mg Enteric Coated Tablet PO SCH (09:35)
[2019-07-18] MEDS: Amlodipine 5 MG TAB PO SCH (09:35)
[2019-07-18] MEDS: Ascorbic Acid 500 mg Chewable Tablet PO SCH ×2 (09:35→20:18)
[2019-07-18] MEDS: hydrOXYzine 25 MG TAB PO SCH ×2 (09:36→20:19)
[2019-07-18] MEDS: hydrALAZINE 25 MG TAB PO SCH ×3 (09:36→20:19)
[2019-07-18] MEDS: Gabapentin 300 MG CAP PO SCH ×2 (09:36→20:19)
[2019-07-18] MEDS: Citalopram 20 MG TAB PO SCH (09:36)
[2019-07-18] MEDS: Isosorbide Mononitrate (ER) 30 MG TAB PO SCH (09:37)
[2019-07-18] MEDS: Losartan Potassium 50 MG TAB PO SCH (09:37)
[2019-07-18] MEDS: Senokot S 8.6-50 MG TAB PO SCH ×2 (09:38→20:19)
[2019-07-18] MEDS: Polyethylene Glycol 3350 17 GM Packet PO SCH (09:38)
[2019-07-18] MEDS: Lantus 1000 UNITS/10 ML VIAL SC SCH (09:38)
[2019-07-18] MEDS: Bisacodyl 10 MG SUPP PR SCH (09:44)
[2019-07-18] MEDS: HumaLOG 300 UNITS/3 ML VIAL SC PRN (11:46)
--- NOTE | 2019-07-18 15:10 | PRG ---
DATE OF SERVICE: 07/18/2019 SUBJECTIVE: Mr. Marc is resting in bed. He is noticing some pain in his left ankle, most likely due to him starting to do more weightbearing. No trauma. OBJECTIVE: VITAL SIGNS: He is afebrile, heart rate 76, respirations 20, oxygen saturation 95% on room air, and blood pressure 140/65. CARDIOVASCULAR SYSTEM: S1 and S2 plus. RESPIRATORY SYSTEM: Normal vesicular breath sounds. ABDOMEN: Soft and nontender. Bowel sounds heard in all quadrants, obese. EXTREMITIES: Without cyanosis or clubbing. Chronic venous insufficiency. CENTRAL NERVOUS SYSTEM: Awake and responsive. Generalized weakness, otherwise nonfocal. IMPRESSION: 1. Chronic kidney disease stage 4. 2. Diabetes mellitus type 2. 3. Hypertension. 4. Dyslipidemia. 5. Chronic venous insufficiency. 6. Obstructive sleep apnea. 7. Left hip fracture, status post open reduction and internal fixation. PLAN: 1. Continue current medications. 2. An 1800 calorie heart healthy ADA diet. 3. Accu-Cheks with sliding scale coverage. 4. DVT prophylaxis with Lovenox. 5. Decubitus precautions. 6. Stress ulcer prophylaxis. 7. Reinforce compliance with CPAP. 8. Continue physical therapy. 9. Routine laboratory values. Recheck BMP in the morning. Job ID: [id number]
[2019-07-18] MEDS: Enoxaparin Sodium 30 MG/0.3 ML SYRINGE SC SCH (20:18)
[2019-07-18] MEDS: Tamsulosin HCl 0.4 MG CAP PO SCH (20:18)
[2019-07-18] MEDS: rOPINIRole HCl 1 MG TAB PO SCH (20:19)
[2019-07-19] MEDS: Budesonide 0.5 MG/2 ML NEB NEB SCH ×2 (05:43→17:32)
[2019-07-19] MEDS: Levothyroxine Sodium 100 MCG TAB PO SCH (05:43)
[2019-07-19 06:00] LABS: Anion Gap 15 mmol/L (10-20); BUN (Urea Nitrogen) 57 mg/dL (8.4-25.7); Calc. Creatinine Clearance 54 mL/min (70-130); Calcium 8.9 mg/dL (7.8-10.44); Carbon Dioxide 26 mmol/L (23-31); Chloride 107 mmol/L (98-107); Estimated GFR-MDRD 31; Glucose 101 mg/dL (83-110); Potassium 5.7 mmol/L (3.5-5.1); Sodium 142 mmol/L (136-145)
[2019-07-19] MEDS: Allopurinol 100 MG TAB PO SCH (08:18)
[2019-07-19] MEDS: Ferrous Sulfate 325 MG TAB PO SCH ×2 (08:18→17:31)
[2019-07-19] MEDS: Ascorbic Acid 500 mg Chewable Tablet PO SCH ×2 (08:19→20:16)
[2019-07-19] MEDS: Amlodipine 5 MG TAB PO SCH (08:19)
[2019-07-19] MEDS: Citalopram 20 MG TAB PO SCH (08:20)
[2019-07-19] MEDS: Lantus 1000 UNITS/10 ML VIAL SC SCH (08:20)
[2019-07-19] MEDS: Gabapentin 300 MG CAP PO SCH ×2 (08:20→20:16)
[2019-07-19] MEDS: hydrOXYzine 25 MG TAB PO SCH ×2 (08:20→20:16)
[2019-07-19] MEDS: Bisacodyl 10 MG SUPP PR SCH (08:20)
[2019-07-19] MEDS: hydrALAZINE 25 MG TAB PO SCH ×3 (08:20→20:16)
[2019-07-19] MEDS: Isosorbide Mononitrate (ER) 30 MG TAB PO SCH (08:21)
[2019-07-19] MEDS: Losartan Potassium 50 MG TAB PO SCH (08:22)
[2019-07-19] MEDS: Senokot S 8.6-50 MG TAB PO SCH ×2 (08:22→20:16)
[2019-07-19] MEDS: Polyethylene Glycol 3350 17 GM Packet PO SCH (08:22)
[2019-07-19] MEDS: Aspirin 81 mg Enteric Coated Tablet PO SCH (08:23)
--- NOTE | 2019-07-19 14:15 | PRG ---
DATE OF SERVICE: 07/19/2019 SUBJECTIVE: Mr. Marc apparently was able to walk all the way around the nurse's station with rest. His pain is better. He denies any questions or concerns. No family at bedside. OBJECTIVE: VITAL SIGNS: He is afebrile. Heart rate 86, respirations 20, oxygen saturation 94% on room air, and blood pressure 154/71. CARDIOVASCULAR SYSTEM: S1 and S2 plus. RESPIRATORY SYSTEM: Normal vesicular breath sounds. ABDOMEN: Soft, nontender, obese. Bowel sounds heard in all quadrants. EXTREMITIES: Without cyanosis or clubbing. Peripheral pulses are palpable. Chronic venous insufficiency. LABORATORY VALUES: Sodium 142, potassium slightly high at 5.7, BUN and creatinine are much improved at 57 and 2.04. Blood sugars are 120, 150, and 122. IMPRESSION: 1. Chronic kidney disease, stage 3. 2. Left hip fracture, status post open reduction and internal fixation. 3. Hypertension. 4. Dyslipidemia. 5. Diabetes mellitus, type 2. 6. Obstructive sleep apnea. 7. Chronic venous insufficiency. 8. Depression. 9. Hypothyroidism. PLAN: 1. Continue current medications. 2. Heart-healthy ADA diet. 3. Accu-Cheks with sliding scale coverage. 4. Reinforce compliance with CPAP. 5. Continue physical therapy. 6. Orthopedic precautions. 7. Routine laboratory values. 8. Get him back on his Lasix but at 20 mg daily. Job ID: [id number]
[2019-07-19] MEDS: Enoxaparin Sodium 30 MG/0.3 ML SYRINGE SC SCH (20:15)
[2019-07-19] MEDS: rOPINIRole HCl 1 MG TAB PO SCH (20:16)
[2019-07-19] MEDS: Tamsulosin HCl 0.4 MG CAP PO SCH (20:16)
[2019-07-20] MEDS: Levothyroxine Sodium 100 MCG TAB PO SCH (05:36)
[2019-07-20] MEDS: Budesonide 0.5 MG/2 ML NEB NEB SCH ×2 (05:37→17:23)
[2019-07-20] MEDS: Amlodipine 5 MG TAB PO SCH (08:15)
[2019-07-20] MEDS: Ferrous Sulfate 325 MG TAB PO SCH ×2 (08:15→17:23)
[2019-07-20] MEDS: Ascorbic Acid 500 mg Chewable Tablet PO SCH ×2 (08:16→20:15)
[2019-07-20] MEDS: Citalopram 20 MG TAB PO SCH (08:16)
[2019-07-20] MEDS: Bisacodyl 10 MG SUPP PR SCH (08:16)
[2019-07-20] MEDS: Aspirin 81 mg Enteric Coated Tablet PO SCH (08:16)
[2019-07-20] MEDS: Gabapentin 300 MG CAP PO SCH ×2 (08:17→20:15)
[2019-07-20] MEDS: hydrALAZINE 25 MG TAB PO SCH ×3 (08:17→20:15)
[2019-07-20] MEDS: hydrOXYzine 25 MG TAB PO SCH ×2 (08:17→20:14)
[2019-07-20] MEDS: Furosemide 20 MG TAB PO SCH (08:17)
[2019-07-20] MEDS: Losartan Potassium 50 MG TAB PO SCH (08:18)
[2019-07-20] MEDS: Isosorbide Mononitrate (ER) 30 MG TAB PO SCH (08:18)
[2019-07-20] MEDS: Lantus 1000 UNITS/10 ML VIAL SC SCH (08:18)
[2019-07-20] MEDS: Polyethylene Glycol 3350 17 GM Packet PO SCH (08:19)
[2019-07-20] MEDS: Senokot S 8.6-50 MG TAB PO SCH ×2 (08:19→20:15)
[2019-07-20] MEDS: Allopurinol 100 MG TAB PO SCH (08:20)
[2019-07-20] MEDS: Methocarbamol 500 MG TAB PO PRN (10:24)
[2019-07-20] MEDS: Acetaminophen 325 MG TAB PO PRN (10:24)
--- NOTE | 2019-07-20 13:53 | PRG ---
DATE OF SERVICE: 07/20/2019 SUBJECTIVE: Mr. Marc is doing well except complains of left ankle pain. He states that when he is sitting in his wheelchair and he moves around, he has been noticing a shooting pain. I examined his left ankle and there is no warmth, no tenderness, and no erythema. I advised him to that we will get him more cushioning for his wheelchair and we will also try to find a wider one. This almost looks like it may be sciatica. No other concerns or questions. OBJECTIVE: VITAL SIGNS: He is afebrile, heart rate 90, respirations 20, oxygen saturation 94% on room air, and blood pressure 139/65. CARDIOVASCULAR SYSTEM: S1 and S2 plus. RESPIRATORY SYSTEM: Normal vesicular breath sounds. ABDOMEN: Soft, obese, and nontender. Bowel sounds heard in all quadrants. EXTREMITIES: Without cyanosis or clubbing. Chronic venous insufficiency. CENTRAL NERVOUS SYSTEM: Awake and responsive. Generalized weakness. LABORATORY DATA: Blood sugars are 122, 137, 116, 98, and 133. IMPRESSION: 1. Diabetes mellitus, type 2. 2. Hypertension. 3. Dyslipidemia. 4. Benign prostatic hypertrophy. 5. Obstructive sleep apnea. 6. Chronic kidney disease, stage 3. 7. Left hip fracture, status post open reduction and internal fixation. 8. Chronic venous insufficiency. 9. Possible sciatica. PLAN: 1. I increase cushioning to the wheelchair and try to get a wider one. 2. Hold off on steroids at this point, given his history of diabetes. 3. Reinforce compliance with CPAP. 4. An 1800-calorie heart healthy ADA diet. 5. Accu-Cheks sliding scale coverage. 6. DVT prophylaxis - he is on Lovenox. 7. Decubitus precaution. 8. Stress ulcer prophylaxis. 9. Routine laboratory values. Job ID: [id number]
[2019-07-20] MEDS: Enoxaparin Sodium 30 MG/0.3 ML SYRINGE SC SCH (20:14)
[2019-07-20] MEDS: Tamsulosin HCl 0.4 MG CAP PO SCH (20:15)
[2019-07-20] MEDS: rOPINIRole HCl 1 MG TAB PO SCH (20:15)
[2019-07-21] MEDS: Methocarbamol 500 MG TAB PO PRN ×3 (05:35→20:27)
[2019-07-21] MEDS: Budesonide 0.5 MG/2 ML NEB NEB SCH ×2 (05:35→18:11)
[2019-07-21] MEDS: Levothyroxine Sodium 100 MCG TAB PO SCH (05:35)
[2019-07-21] MEDS: hydrOXYzine 25 MG TAB PO SCH ×2 (08:31→20:26)
[2019-07-21] MEDS: Ferrous Sulfate 325 MG TAB PO SCH ×2 (08:31→17:37)
[2019-07-21] MEDS: Furosemide 20 MG TAB PO SCH (08:31)
[2019-07-21] MEDS: Citalopram 20 MG TAB PO SCH (08:32)
[2019-07-21] MEDS: hydrALAZINE 25 MG TAB PO SCH ×3 (08:32→20:26)
[2019-07-21] MEDS: Ascorbic Acid 500 mg Chewable Tablet PO SCH ×2 (08:32→20:25)
[2019-07-21] MEDS: Isosorbide Mononitrate (ER) 30 MG TAB PO SCH (08:32)
[2019-07-21] MEDS: Losartan Potassium 50 MG TAB PO SCH (08:33)
[2019-07-21] MEDS: Aspirin 81 mg Enteric Coated Tablet PO SCH (08:33)
[2019-07-21] MEDS: Allopurinol 100 MG TAB PO SCH (08:33)
[2019-07-21] MEDS: Amlodipine 5 MG TAB PO SCH (08:33)
[2019-07-21] MEDS: Gabapentin 300 MG CAP PO SCH ×2 (08:33→20:26)
[2019-07-21] MEDS: Lantus 1000 UNITS/10 ML VIAL SC SCH (08:34)
[2019-07-21] MEDS: Bisacodyl 10 MG SUPP PR SCH (08:39)
[2019-07-21] MEDS: Polyethylene Glycol 3350 17 GM Packet PO SCH (08:39)
[2019-07-21] MEDS: Senokot S 8.6-50 MG TAB PO SCH ×2 (08:41→20:27)
--- NOTE | 2019-07-21 14:00 | PRG ---
DATE OF SERVICE: 07/21/2019 SUBJECTIVE: Mr. Marc is doing well. He apparently walked all the way around the nurse's station. He continues to have some pain in his ankle, but it is much improved. Noticing more redness in his nasolabial fold and some flakes consistent with seborrheic dermatitis. OBJECTIVE: VITAL SIGNS: He is afebrile, heart rate 84, respirations 18, oxygen saturation 96% on room air, and blood pressure 145/74. CARDIOVASCULAR SYSTEM: S1 and S2 plus. RESPIRATORY SYSTEM: Normal vesicular breath sounds. ABDOMEN: Soft and nontender. Bowel sounds heard in all quadrants. EXTREMITIES: Without cyanosis or clubbing. Trace edema. CENTRAL NERVOUS SYSTEM: Awake and responsive. Generalized weakness. LABORATORY DATA: Blood sugars are still under good control at 133, 144, 162, 97, and 119. IMPRESSION: 1. Diabetes mellitus, type 2. 2. Hypertension. 3. Dyslipidemia. 4. Obstructive sleep apnea. 5. Left hip fracture, status post open reduction and internal fixation. 6. Chronic kidney disease stage 3 to 4. 7. Seborrheic dermatitis. 8. Improving deconditioning. PLAN: 1. Continue current medications. 2. An 1800 calorie heart healthy ADA diet. 3. Accu-Cheks sliding scale coverage. 4. DVT prophylaxis-he is on Lovenox. 5. Decubitus precautions. 6. Stress ulcer prophylaxis. 7. Routine laboratory values. 8. Betamethasone cream to nasolabial folds and his eyebrows. Job ID: [id number]
[2019-07-21] MEDS: Betamethasone Val 0.1% OINT 15 GM TUBE TOP SCH (20:25)
[2019-07-21] MEDS: rOPINIRole HCl 1 MG TAB PO SCH (20:26)
[2019-07-21] MEDS: Enoxaparin Sodium 30 MG/0.3 ML SYRINGE SC SCH (20:26)
[2019-07-21] MEDS: Tamsulosin HCl 0.4 MG CAP PO SCH (20:27)
[2019-07-22 05:32] LABS: #Basophils 0.2 thou/uL (0.0-0.2); #Eosinphils 0.9 thou/uL (0.0-0.7); #Lymphocytes 1.7 thou/uL (1.20-3.40); #Neutrophils 4.9 thou/uL (1.40-6.50); %Basophils 1.9 % (0.0-1.0); %Eosinophils 10.1 % (0.0-10.0); %Lymphocytes 19.6 % (21.0-51.0); %Monocytes 11.3 % (0.0-10.0); %Neutrophils 57.2 % (42.0-75.0); Hemoglobin 10.3 g/dL (14.0-18.0); Mean Corpuscular HGB CONC 30.9 g/dL (32.0-36.0); Mean Corpuscular Hemoglobin 30.7 pg (27.0-31.0); Mean Corpuscular Volume 99.3 fL (78.0-98.0); Mean Platelet Volume 7.9 fL (7.4-10.4); Platelet Count 154 thou/uL (130-400); RBC Distribution Width 13.6 % (11.5-14.5); Red Blood Cell (RBC) Count 3.35 mill/uL (4.70-6.10); White Blood Cell (WBC) Count 8.5 thou/uL (4.8-10.8)
[2019-07-22 05:41] LABS: Anion Gap 15 mmol/L (10-20); BUN (Urea Nitrogen) 49 mg/dL (8.4-25.7); Calc. Creatinine Clearance 53 mL/min (70-130); Calcium 8.7 mg/dL (7.8-10.44); Carbon Dioxide 24 mmol/L (23-31); Chloride 107 mmol/L (98-107); Estimated GFR-MDRD 31; Glucose 103 mg/dL (83-110); Potassium 4.9 mmol/L (3.5-5.1); Sodium 141 mmol/L (136-145)
[2019-07-22] MEDS: Budesonide 0.5 MG/2 ML NEB NEB SCH ×2 (05:49→17:40)
[2019-07-22] MEDS: Levothyroxine Sodium 100 MCG TAB PO SCH (05:49)
[2019-07-22] MEDS: Methocarbamol 500 MG TAB PO PRN ×2 (05:50→20:40)
[2019-07-22] MEDS: Betamethasone Val 0.1% OINT 15 GM TUBE TOP SCH ×2 (08:31→20:38)
[2019-07-22] MEDS: Lantus 1000 UNITS/10 ML VIAL SC SCH (08:34)
[2019-07-22] MEDS: Allopurinol 100 MG TAB PO SCH (08:35)
[2019-07-22] MEDS: Gabapentin 300 MG CAP PO SCH ×2 (08:35→20:39)
[2019-07-22] MEDS: Ascorbic Acid 500 mg Chewable Tablet PO SCH ×2 (08:36→20:38)
[2019-07-22] MEDS: Losartan Potassium 50 MG TAB PO SCH (08:36)
[2019-07-22] MEDS: hydrOXYzine 25 MG TAB PO SCH ×2 (08:36→20:39)
[2019-07-22] MEDS: Isosorbide Mononitrate (ER) 30 MG TAB PO SCH (08:36)
[2019-07-22] MEDS: Amlodipine 5 MG TAB PO SCH (08:36)
[2019-07-22] MEDS: hydrALAZINE 25 MG TAB PO SCH ×3 (08:36→20:39)
[2019-07-22] MEDS: Ferrous Sulfate 325 MG TAB PO SCH ×2 (08:37→17:03)
[2019-07-22] MEDS: Aspirin 81 mg Enteric Coated Tablet PO SCH (08:37)
[2019-07-22] MEDS: Citalopram 20 MG TAB PO SCH (08:37)
[2019-07-22] MEDS: Furosemide 20 MG TAB PO SCH (08:37)
[2019-07-22] MEDS: Bisacodyl 10 MG SUPP PR SCH (08:38)
[2019-07-22] MEDS: Polyethylene Glycol 3350 17 GM Packet PO SCH (08:38)
[2019-07-22] MEDS: Senokot S 8.6-50 MG TAB PO SCH ×2 (08:38→20:39)
--- NOTE | 2019-07-22 13:33 | PRG ---
DATE OF SERVICE: 07/22/2019 SUBJECTIVE: Mr. Marc is doing well. He apparently walked around the nurse's station twice. He is happy with his progress. No concerns or questions. OBJECTIVE: VITAL SIGNS: He is afebrile. Heart rate 86, respirations 20, oxygen saturation 95% on room air, blood pressure 153/68. CARDIOVASCULAR: S1 and S2 plus. RESPIRATORY: Normal vesicular breath sounds. ABDOMEN: Soft, obese, nontender. Bowel sounds heard in all quadrants. EXTREMITIES: Without cyanosis or clubbing. Trace edema due to chronic venous insufficiency. CENTRAL NERVOUS SYSTEM: Awake and responsive. Generalized weakness, otherwise nonfocal. LABORATORY VALUES: Sodium 141, potassium 4.9, BUN and creatinine 49 and 2.07. Blood sugars are 119, 95, 173, 103, and 131. IMPRESSION: 1. Left hip fracture, status post open reduction and internal fixation. 2. Diabetes mellitus type 2. 3. Chronic kidney disease stage 4. 4. Obstructive sleep apnea. 5. Chronic venous insufficiency. 6. Obesity. 7. Hypertension. 8. Dyslipidemia. PLAN: 1. Continue current medications. 2. 1800 calorie heart healthy ADA diet. 3. Accu-Cheks with sliding scale coverage. 4. DVT prophylaxis with Lovenox. 5. Decubitus precautions. 6. Stress ulcer prophylaxis. 7. Routine laboratory values. 8. Continue betamethasone cream for his seborrheic dermatitis. Job ID: [id number]
[2019-07-22] MEDS: Enoxaparin Sodium 30 MG/0.3 ML SYRINGE SC SCH (20:38)
[2019-07-22] MEDS: rOPINIRole HCl 1 MG TAB PO SCH (20:39)
[2019-07-22] MEDS: Tamsulosin HCl 0.4 MG CAP PO SCH (20:39)
[2019-07-23] MEDS: Budesonide 0.5 MG/2 ML NEB NEB SCH ×2 (05:21→18:02)
[2019-07-23] MEDS: Methocarbamol 500 MG TAB PO PRN ×2 (05:22→21:13)
[2019-07-23] MEDS: Levothyroxine Sodium 100 MCG TAB PO SCH (05:22)
[2019-07-23] MEDS: Ascorbic Acid 500 mg Chewable Tablet PO SCH ×2 (08:21→21:11)
[2019-07-23] MEDS: Allopurinol 100 MG TAB PO SCH (08:21)
[2019-07-23] MEDS: Furosemide 20 MG TAB PO SCH (08:21)
[2019-07-23] MEDS: Isosorbide Mononitrate (ER) 30 MG TAB PO SCH (08:21)
[2019-07-23] MEDS: Aspirin 81 mg Enteric Coated Tablet PO SCH (08:21)
[2019-07-23] MEDS: Ferrous Sulfate 325 MG TAB PO SCH ×2 (08:21→16:17)
[2019-07-23] MEDS: Citalopram 20 MG TAB PO SCH (08:21)
[2019-07-23] MEDS: Amlodipine 5 MG TAB PO SCH (08:22)
[2019-07-23] MEDS: hydrALAZINE 25 MG TAB PO SCH ×3 (08:22→21:12)
[2019-07-23] MEDS: Losartan Potassium 50 MG TAB PO SCH (08:22)
[2019-07-23] MEDS: Gabapentin 300 MG CAP PO SCH ×2 (08:22→21:12)
[2019-07-23] MEDS: Betamethasone Val 0.1% OINT 15 GM TUBE TOP SCH ×2 (08:23→21:11)
[2019-07-23] MEDS: Bisacodyl 10 MG SUPP PR SCH (08:24)
[2019-07-23] MEDS: Polyethylene Glycol 3350 17 GM Packet PO SCH (08:36)
[2019-07-23] MEDS: Senokot S 8.6-50 MG TAB PO SCH ×2 (08:36→21:12)
[2019-07-23] MEDS: Lantus 1000 UNITS/10 ML VIAL SC SCH (08:36)
[2019-07-23] MEDS: hydrOXYzine 25 MG TAB PO SCH ×2 (08:36→21:12)
--- NOTE | 2019-07-23 09:38 | PRG ---
DATE OF SERVICE: 07/23/2019 SUBJECTIVE: Mr. Marc is doing well. He is getting ready to participate with therapy. Plan is for his spouse to come by and work with him and therapy on Friday and Friday next week to get trained and hopefully discharge him on Friday. OBJECTIVE: VITAL SIGNS: He is afebrile, heart rate 90, respirations 20, oxygen saturation 96% on room air, blood pressure 155/66. CARDIOVASCULAR: S1 and S2 plus. RESPIRATORY: Normal vesicular breath sounds. ABDOMEN: Soft and nontender. Bowel sounds heard in all quadrants. EXTREMITIES: Without cyanosis or clubbing. Chronic venous insufficiency. CENTRAL NERVOUS SYSTEM: Generalized weakness. LABORATORY DATA: Blood sugars are 131, 123, 117, and 112. IMPRESSION: 1. Left hip fracture, status post open reduction and internal fixation. 2. Diabetes mellitus, type 2. 3. Chronic kidney disease, stage 4. 4. Hypertension. 5. Morbid obesity. 6. Obstructive sleep apnea. PLAN: 1. Continue current medications. 2. 1800-calorie heart-healthy ADA diet. 3. Accu-Cheks with sliding scale coverage. 4. Nocturnal CPAP. 5. Physical therapy. 6. Continue topical steroid cream for his seborrheic dermatitis. 7. Routine laboratory values. Job ID: [id number]
[2019-07-23] MEDS: Enoxaparin Sodium 30 MG/0.3 ML SYRINGE SC SCH (21:12)
[2019-07-23] MEDS: rOPINIRole HCl 1 MG TAB PO SCH (21:12)
[2019-07-23] MEDS: Tamsulosin HCl 0.4 MG CAP PO SCH (21:13)
[2019-07-24] MEDS: Levothyroxine Sodium 100 MCG TAB PO SCH (05:19)
[2019-07-24] MEDS: Budesonide 0.5 MG/2 ML NEB NEB SCH ×2 (05:19→17:48)
[2019-07-24] MEDS: Methocarbamol 500 MG TAB PO PRN ×2 (05:19→20:20)
[2019-07-24] MEDS: Lantus 1000 UNITS/10 ML VIAL SC SCH (08:25)
[2019-07-24] MEDS: Ferrous Sulfate 325 MG TAB PO SCH ×2 (08:26→17:48)
[2019-07-24] MEDS: Amlodipine 5 MG TAB PO SCH (08:26)
[2019-07-24] MEDS: Allopurinol 100 MG TAB PO SCH (08:26)
[2019-07-24] MEDS: Ascorbic Acid 500 mg Chewable Tablet PO SCH ×2 (08:26→20:18)
[2019-07-24] MEDS: Aspirin 81 mg Enteric Coated Tablet PO SCH (08:27)
[2019-07-24] MEDS: Betamethasone Val 0.1% OINT 15 GM TUBE TOP SCH ×2 (08:27→20:18)
[2019-07-24] MEDS: Citalopram 20 MG TAB PO SCH (08:27)
[2019-07-24] MEDS: Furosemide 20 MG TAB PO SCH (08:27)
[2019-07-24] MEDS: Bisacodyl 10 MG SUPP PR SCH (08:27)
[2019-07-24] MEDS: hydrOXYzine 25 MG TAB PO SCH ×2 (08:28→20:19)
[2019-07-24] MEDS: Losartan Potassium 50 MG TAB PO SCH (08:28)
[2019-07-24] MEDS: Isosorbide Mononitrate (ER) 30 MG TAB PO SCH (08:28)
[2019-07-24] MEDS: hydrALAZINE 25 MG TAB PO SCH ×3 (08:28→20:19)
[2019-07-24] MEDS: Gabapentin 300 MG CAP PO SCH ×2 (08:28→20:19)
[2019-07-24] MEDS: Polyethylene Glycol 3350 17 GM Packet PO SCH (08:29)
[2019-07-24] MEDS: Senokot S 8.6-50 MG TAB PO SCH ×2 (08:29→20:20)
--- NOTE | 2019-07-24 12:18 | PRG ---
DATE OF SERVICE: 07/24/2019 SUBJECTIVE: Mr. Marc is doing well. Denies any complaints. Resting comfortably. His facial rash has much improved. OBJECTIVE: VITAL SIGNS: He is afebrile, heart rate 82, respirations 20, oxygen saturation 95% on room air, and blood pressure 165/70. CARDIOVASCULAR SYSTEM: S1 and S2 plus. RESPIRATORY SYSTEM: Normal vesicular breath sounds. ABDOMEN: Soft. Obese. Nontender. Bowel sounds heard in all quadrants. EXTREMITIES: Without cyanosis or clubbing. Chronic venous insufficiency CENTRAL NERVOUS SYSTEM: Awake and responsive. Generalized weakness. LABORATORY DATA: Laboratory values show blood sugars of 106, 104, 104, 106, and 105. IMPRESSION: 1. Diabetes mellitus, type 2. 2. Hypertension. 3. Dyslipidemia. 4. Benign prostatic hypertrophy. 5. Obstructive sleep apnea. 6. Chronic venous insufficiency. 7. Left hip fracture, status post open reduction and internal fixation. 8. Seborrheic dermatitis. PLAN: 1. Continue current medications. 2. Nutritional support with 1800-calorie, heart healthy, ADA diet. 3. Accu-Cheks with sliding scale coverage. 4. DVT prophylaxis - the patient is on Lovenox. 5. Decubitus precautions. 6. Stress ulcer prophylaxis. 7. Routine laboratory values. 8. Continue physical therapy. Job ID: [id number]
[2019-07-24] MEDS: Enoxaparin Sodium 30 MG/0.3 ML SYRINGE SC SCH (20:19)
[2019-07-24] MEDS: rOPINIRole HCl 1 MG TAB PO SCH (20:19)
[2019-07-24] MEDS: Tamsulosin HCl 0.4 MG CAP PO SCH (20:20)
[2019-07-25] MEDS: Levothyroxine Sodium 100 MCG TAB PO SCH (05:29)
[2019-07-25] MEDS: Budesonide 0.5 MG/2 ML NEB NEB SCH ×2 (05:30→17:45)
[2019-07-25] MEDS: Allopurinol 100 MG TAB PO SCH (08:21)
[2019-07-25] MEDS: Ferrous Sulfate 325 MG TAB PO SCH ×2 (08:21→17:45)
[2019-07-25] MEDS: Amlodipine 5 MG TAB PO SCH (08:22)
[2019-07-25] MEDS: Ascorbic Acid 500 mg Chewable Tablet PO SCH ×2 (08:22→19:59)
[2019-07-25] MEDS: Bisacodyl 10 MG SUPP PR SCH (08:23)
[2019-07-25] MEDS: Betamethasone Val 0.1% OINT 15 GM TUBE TOP SCH ×2 (08:23→19:59)
[2019-07-25] MEDS: Aspirin 81 mg Enteric Coated Tablet PO SCH (08:23)
[2019-07-25] MEDS: Gabapentin 300 MG CAP PO SCH ×2 (08:24→19:59)
[2019-07-25] MEDS: hydrALAZINE 25 MG TAB PO SCH ×3 (08:24→19:59)
[2019-07-25] MEDS: Citalopram 20 MG TAB PO SCH (08:24)
[2019-07-25] MEDS: Furosemide 20 MG TAB PO SCH (08:24)
[2019-07-25] MEDS: hydrOXYzine 25 MG TAB PO SCH ×2 (08:25→19:59)
[2019-07-25] MEDS: Losartan Potassium 50 MG TAB PO SCH (08:26)
[2019-07-25] MEDS: Isosorbide Mononitrate (ER) 30 MG TAB PO SCH (08:26)
[2019-07-25] MEDS: Lantus 1000 UNITS/10 ML VIAL SC SCH (08:26)
[2019-07-25] MEDS: Polyethylene Glycol 3350 17 GM Packet PO SCH (08:27)
[2019-07-25] MEDS: Senokot S 8.6-50 MG TAB PO SCH ×2 (08:27→19:59)
[2019-07-25] MEDS: Acetaminophen 325 MG TAB PO PRN (08:37)
[2019-07-25] MEDS: Methocarbamol 500 MG TAB PO PRN (08:37)
--- NOTE | 2019-07-25 11:06 | PRG ---
DATE OF SERVICE: 07/25/2019 SUBJECTIVE: Mr. Marc is up in his chair and denies any complaints. He just finished his breakfast. He is happy with his progress. No family at bedside. OBJECTIVE: VITAL SIGNS: He is afebrile. Heart rate 76, respirations 20, oxygen saturation 95% on room air, blood pressure 140/63. CARDIOVASCULAR SYSTEM: S1 and S2 plus. RESPIRATORY SYSTEM: Normal vesicular breath sounds. ABDOMEN: Soft, obese, nontender. Bowel sounds heard in all quadrants. EXTREMITIES: Without cyanosis or clubbing. Chronic venous insufficiency. CENTRAL NERVOUS SYSTEM: Awake and responsive. Generalized weakness, otherwise nonfocal. LABORATORY DATA: Laboratory values show well controlled blood sugars of 106, 105, 131, 116 and 116. IMPRESSION: 1. Diabetes mellitus, type 2. 2. Hypertension. 3. Major depression in partial remission. 4. Coronary artery disease. 5. Hypothyroidism. 6. Benign prostatic hypertrophy. 7. Obstructive sleep apnea. PLAN: 1. Continue current medications. 2. 1800-calorie heart-healthy ADA diet. 3. Accu-Cheks with sliding scale coverage. 4. DVT prophylaxis - he is on Lovenox. 5. Decubitus precautions. 6. Stress ulcer prophylaxis. 7. Routine laboratory values. 8. Physical therapy. Job ID: [id number]
[2019-07-25 14:19] VITALS: BMI 41.8
[2019-07-25] MEDS: Enoxaparin Sodium 30 MG/0.3 ML SYRINGE SC SCH (19:58)
[2019-07-25] MEDS: Tamsulosin HCl 0.4 MG CAP PO SCH (19:59)
[2019-07-25] MEDS: rOPINIRole HCl 1 MG TAB PO SCH (19:59)
[2019-07-26] MEDS: Levothyroxine Sodium 100 MCG TAB PO SCH (06:20)
[2019-07-26] MEDS: Budesonide 0.5 MG/2 ML NEB NEB SCH ×2 (06:20→18:12)
[2019-07-26] MEDS: Acetaminophen 325 MG TAB PO PRN (06:25)
[2019-07-26] MEDS: Lantus 1000 UNITS/10 ML VIAL SC SCH (08:36)
[2019-07-26] MEDS: Ascorbic Acid 500 mg Chewable Tablet PO SCH ×2 (08:37→20:19)
[2019-07-26] MEDS: Gabapentin 300 MG CAP PO SCH ×2 (08:37→20:20)
[2019-07-26] MEDS: Ferrous Sulfate 325 MG TAB PO SCH ×2 (08:37→16:56)
[2019-07-26] MEDS: Allopurinol 100 MG TAB PO SCH (08:37)
[2019-07-26] MEDS: Aspirin 81 mg Enteric Coated Tablet PO SCH (08:38)
[2019-07-26] MEDS: Senokot S 8.6-50 MG TAB PO SCH ×2 (08:38→20:20)
[2019-07-26] MEDS: Citalopram 20 MG TAB PO SCH (08:38)
[2019-07-26] MEDS: Isosorbide Mononitrate (ER) 30 MG TAB PO SCH (08:38)
[2019-07-26] MEDS: hydrALAZINE 25 MG TAB PO SCH ×3 (08:39→20:20)
[2019-07-26] MEDS: Losartan Potassium 50 MG TAB PO SCH (08:39)
[2019-07-26] MEDS: hydrOXYzine 25 MG TAB PO SCH ×2 (08:39→20:20)
[2019-07-26] MEDS: Furosemide 20 MG TAB PO SCH (08:39)
[2019-07-26] MEDS: Amlodipine 5 MG TAB PO SCH (08:40)
[2019-07-26] MEDS: Betamethasone Val 0.1% OINT 15 GM TUBE TOP SCH ×2 (08:42→20:19)
[2019-07-26] MEDS: Bisacodyl 10 MG SUPP PR SCH (08:42)
[2019-07-26] MEDS: Polyethylene Glycol 3350 17 GM Packet PO SCH (08:43)
--- NOTE | 2019-07-26 13:42 | PRG ---
DATE OF SERVICE: 07/26/2019 SUBJECTIVE: Mr. Marc is doing well. He apparently participated with therapy. His family is here with him and getting trained. He is apparently going to try getting in and out of the car this afternoon. Plan is for him to go home on Friday. He does need a walker given his recent left hip fracture and surgery and just increasing his weightbearing. Therapy feels that he will benefit from the walker for fall precautions and for more stability, trying to find out exactly what kind of walker they recommend so that I can write a prescription. He apparently also has Home Health arranged. His primary [facility] is at [facility]. OBJECTIVE: VITAL SIGNS: He is afebrile, heart rate 76, respirations 20, oxygen saturation 97% on room air, and blood pressure 176/70. CARDIOVASCULAR: S1 and S2 plus. RESPIRATORY: Normal vesicular breath sounds. ABDOMEN: Soft and nontender. Bowel sounds heard in all quadrants. EXTREMITIES: Without cyanosis or clubbing. Chronic venous insufficiency. CENTRAL NERVOUS SYSTEM: Awake and responsive. Grossly nonfocal. IMPRESSION: 1. Left hip fracture, status post open reduction and internal fixation. 2. Chronic kidney disease stage 3 to 4. 3. Chronic venous insufficiency. 4. Obstructive sleep apnea. 5. Hypertension. 6. Hypothyroidism. 7. Diabetes mellitus, type 2. 8. Restless legs syndrome. 9. Benign prostatic hypertrophy. PLAN: 1. Continue current medications. 2. Physical therapy. 3. 1800 calorie heart healthy ADA diet. 4. Accu-Cheks with sliding scale coverage. 5. Continue physical therapy and occupational therapy. 6. Discharge planning. 7. Await specific recommendations on the walker. Job ID: [id number]
[2019-07-26] MEDS: Enoxaparin Sodium 30 MG/0.3 ML SYRINGE SC SCH (20:20)
[2019-07-26] MEDS: Tamsulosin HCl 0.4 MG CAP PO SCH (20:20)
[2019-07-26] MEDS: rOPINIRole HCl 1 MG TAB PO SCH (20:20)
[2019-07-26] MEDS: Methocarbamol 500 MG TAB PO PRN (20:21)
[2019-07-27] MEDS: Budesonide 0.5 MG/2 ML NEB NEB SCH ×2 (05:35→17:36)
[2019-07-27] MEDS: Levothyroxine Sodium 100 MCG TAB PO SCH (05:35)
[2019-07-27] MEDS: Methocarbamol 500 MG TAB PO PRN ×2 (05:43→20:40)
[2019-07-27] MEDS ORDERED: Losartan Potassium 50 MG TAB ONE (08:03)
[2019-07-27] MEDS: Ascorbic Acid 500 mg Chewable Tablet PO SCH ×2 (08:25→20:38)
[2019-07-27] MEDS: Polyethylene Glycol 3350 17 GM Packet PO SCH (08:25)
[2019-07-27] MEDS: Betamethasone Val 0.1% OINT 15 GM TUBE TOP SCH ×2 (08:25→20:38)
[2019-07-27] MEDS: Amlodipine 5 MG TAB PO SCH (08:25)
[2019-07-27] MEDS: Furosemide 20 MG TAB PO SCH (08:25)
[2019-07-27] MEDS: Isosorbide Mononitrate (ER) 30 MG TAB PO SCH (08:25)
[2019-07-27] MEDS: hydrOXYzine 25 MG TAB PO SCH ×2 (08:26→20:39)
[2019-07-27] MEDS: Citalopram 20 MG TAB PO SCH (08:26)
[2019-07-27] MEDS: Aspirin 81 mg Enteric Coated Tablet PO SCH (08:26)
[2019-07-27] MEDS: Gabapentin 300 MG CAP PO SCH ×2 (08:26→20:39)
[2019-07-27] MEDS: hydrALAZINE 25 MG TAB PO SCH ×3 (08:26→20:39)
[2019-07-27] MEDS: Senokot S 8.6-50 MG TAB PO SCH ×2 (08:26→20:40)
[2019-07-27] MEDS: Losartan Potassium 50 MG TAB PO SCH (08:26)
[2019-07-27] MEDS: Bisacodyl 10 MG SUPP PR SCH (08:27)
[2019-07-27] MEDS: Lantus 1000 UNITS/10 ML VIAL SC SCH (08:27)
[2019-07-27] MEDS: Ferrous Sulfate 325 MG TAB PO SCH ×2 (08:27→17:36)
[2019-07-27] MEDS: Allopurinol 100 MG TAB PO SCH (08:27)
[2019-07-27] MEDS: Acetaminophen 325 MG TAB PO PRN (11:58)
--- NOTE | 2019-07-27 13:50 | PRG ---
DATE OF SERVICE: 07/27/2019 SUBJECTIVE: Mr. Marc is doing well, denies any complaints. Prescription written for his walker with front wheels. He apparently did not qualify for the bariatric walker. Anticipated discharge date is tomorrow. He states that he does not need any prescriptions. OBJECTIVE: VITAL SIGNS: He is afebrile, heart rate 76, respirations 18, oxygen saturation 97% on room air, and blood pressure 165/80. CARDIOVASCULAR SYSTEM: S1 and S2 plus. RESPIRATORY SYSTEM: Normal vesicular breath sounds. ABDOMEN: Soft, obese, and nontender. Bowel sounds heard in all quadrants. EXTREMITIES: Without cyanosis or clubbing. Chronic venous insufficiency. CENTRAL NERVOUS SYSTEM: Awake and responsive. grossly nonfocal. LABORATORY DATA: Blood sugars are 106, 97, 105, and 105. IMPRESSION: 1. Diabetes mellitus, type 2. 2. Hypertension. 3. Dyslipidemia. 4. Benign prostatic hypertrophy. 5. Hypothyroidism. 6. Obstructive sleep apnea. 7. Left hip fracture, status post open reduction and internal fixation. 8. Venous insufficiency. PLAN: 1. Continue current medications. 2. 1800-calorie heart healthy diet. 3. Accu-Cheks with sliding scale coverage. 4. Orthopedic precautions. 5. DVT prophylaxis. 6. Decubitus precaution. 7. Stress ulcer prophylaxis. 8. Discharge planning. Job ID: [id number]
[2019-07-27] MEDS: Enoxaparin Sodium 30 MG/0.3 ML SYRINGE SC SCH (20:38)
[2019-07-27] MEDS: rOPINIRole HCl 1 MG TAB PO SCH (20:39)
[2019-07-27] MEDS: Tamsulosin HCl 0.4 MG CAP PO SCH (20:40)
[2019-07-28] MEDS: Levothyroxine Sodium 100 MCG TAB PO SCH (05:09)
[2019-07-28] MEDS: Methocarbamol 500 MG TAB PO PRN (05:09)
[2019-07-28] MEDS: Budesonide 0.5 MG/2 ML NEB NEB SCH (05:09)
[2019-07-28] MEDS ORDERED: Losartan Potassium 50 MG TAB ONE (08:11)
[2019-07-28] MEDS: Ferrous Sulfate 325 MG TAB PO SCH (08:15)
[2019-07-28] MEDS: Allopurinol 100 MG TAB PO SCH (08:16)
[2019-07-28] MEDS: Amlodipine 5 MG TAB PO SCH (08:16)
[2019-07-28] MEDS: Aspirin 81 mg Enteric Coated Tablet PO SCH (08:17)
[2019-07-28] MEDS: Betamethasone Val 0.1% OINT 15 GM TUBE TOP SCH (08:17)
[2019-07-28] MEDS: Bisacodyl 10 MG SUPP PR SCH (08:17)
[2019-07-28] MEDS: Ascorbic Acid 500 mg Chewable Tablet PO SCH (08:17)
[2019-07-28] MEDS: Gabapentin 300 MG CAP PO SCH (08:18)
[2019-07-28] MEDS: Citalopram 20 MG TAB PO SCH (08:18)
[2019-07-28] MEDS: hydrALAZINE 25 MG TAB PO SCH (08:18)
[2019-07-28] MEDS: Furosemide 20 MG TAB PO SCH (08:18)
[2019-07-28] MEDS: hydrOXYzine 25 MG TAB PO SCH (08:18)
[2019-07-28] MEDS: Isosorbide Mononitrate (ER) 30 MG TAB PO SCH (08:19)
[2019-07-28] MEDS: Losartan Potassium 50 MG TAB PO SCH (08:19)
[2019-07-28] MEDS: Lantus 1000 UNITS/10 ML VIAL SC SCH (08:19)
[2019-07-28] MEDS: Polyethylene Glycol 3350 17 GM Packet PO SCH (08:20)
[2019-07-28] MEDS: Senokot S 8.6-50 MG TAB PO SCH (08:20)
[2019-07-28 08:31] VITALS: BP 150/63
[2019-07-28 08:40] VITALS: TEMP 97.6
--- NOTE | 2019-07-29 11:35 | DIS ---
DATE OF ADMISSION: 06/11/2019 DATE OF DISCHARGE: 07/28/2019 PRINCIPAL DIAGNOSIS: Left hip fracture, status post surgical fixation. SECONDARY DIAGNOSES: 1. Diabetes mellitus, type 2. 2. Obstructive sleep apnea. 3. Chronic kidney disease, stage 3 to 4. 4. Chronic venous insufficiency. 5. Seborrheic dermatitis. 6. Obesity. 7. Chronic obstructive pulmonary disease. 8. Hypothyroidism. 9. Depression and anxiety. 10. Restless legs syndrome. 11. Benign prostatic hypertrophy. COMPLICATIONS: None. ADVERSE REACTIONS: None. PROCEDURES: None. CONSULTATIONS: None. HOSPITAL COURSE: The patient was admitted on 06/11 after a fall resulting in left femoral neck fracture. He underwent surgical fixation. He did have an episode of aspiration requiring IMCU stay. He recovered from it and was transferred here for therapy. He was nonweightbearing for almost 4 to 6 weeks. He followed up with Orthopedics and then his weightbearing was increased to as tolerated. He also was compliant with his CPAP. We did notice worsening renal function and a cut down on his diuretics from 40 mg b.i.d. to 20 mg daily and that seemed to have helped. No fluid retention. He also developed eczematous changes to his stasis dermatitis and topical steroids really helped. He improved enough and was deemed medically stable for discharge to home. Walker with front wheels was ordered. He is to follow up with his PCP and his surgeon in the next 7 to 10 days. PHYSICAL EXAMINATION: VITAL SIGNS: On the day of discharge, he was afebrile, heart rate 77, respirations 18, oxygen saturation 97% on room air, and blood pressure 150/63. CARDIOVASCULAR SYSTEM: S1 and S2 plus. RESPIRATORY SYSTEM: Normal vesicular breath sounds. ABDOMEN: Soft, obese, and nontender. Bowel sounds heard in all quadrants. EXTREMITIES: Without cyanosis or clubbing. Chronic venous insufficiency. CENTRAL NERVOUS SYSTEM: Awake and responsive. Grossly nonfocal. LABORATORY VALUES: His blood sugars were 105, 102, 119, and 117. DISCHARGE MEDICATIONS: 1. Tylenol 325 mg b.i.d. p.r.n. 2. Allopurinol 100 mg daily. 3. Norvasc 10 mg daily. 4. Ecotrin 81 mg daily. 5. Pulmicort 0.5 mg via nebulizer b.i.d. 6. Celexa 40 mg daily. 7. Flexeril 10 mg b.i.d. 8. Iron sulfate 325 b.i.d. 9. Lasix 20 mg daily. 10. Gabapentin 300 mg b.i.d. 11. Hydralazine 50 mg t.i.d. 12. Lantus 15 units subcu daily. 13. Levoxyl 100 mcg daily. 14. Losartan 100 mg daily. 15. Protonix 40 mg daily. 16. MiraLAX 17 g in 8 ounces of water daily. 17. Requip 1 mg at bedtime. 18. Tamsulosin 0.4 mg at bedtime. DISCHARGE INSTRUCTIONS: 1800 calorie heart healthy ADA diet. Accu-Cheks with sliding scale coverage. Orthopedic precautions. Outpatient followup with PCP and specialist. Family was advised to call us with any questions or concerns. Total time spent on this discharge 40 minutes. Prescriptions were sent in to his pharmacy, which is [email or web address]. For full details, please see chart. Job ID: [id number]
== END 2019-07-28 12:30 | disposition home or self-care (01) | DRG 559 ==
LOC: NAV ACUTE 16:04
PROVIDERS: ADMIT Internal Medicine; ATTEND Internal Medicine
DX: S72.142D Displaced intertrochanteric fracture of left femur, subsequent encounter for closed fracture with routine healing (principal); J96.01 Acute respiratory failure with hypoxia; J69.0 Pneumonitis due to inhalation of food and vomit; N18.4 Chronic kidney disease, stage 4 (severe); Z68.41 Body mass index [BMI] 40.0-44.9, adult; J44.9 Chronic obstructive pulmonary disease, unspecified; G47.33 Obstructive sleep apnea (adult) (pediatric); E03.9 Hypothyroidism, unspecified; F32.9 Major depressive disorder, single episode, unspecified; F41.9 Anxiety disorder, unspecified; E11.9 Type 2 diabetes mellitus without complications; N40.0 Benign prostatic hyperplasia without lower urinary tract symptoms; G25.81 Restless legs syndrome; I87.8 Other specified disorders of veins; N18.9 Chronic kidney disease, unspecified; F32.4 Major depressive disorder, single episode, in partial remission; L21.8 Other seborrheic dermatitis; I12.9 Hypertensive chronic kidney disease with stage 1 through stage 4 chronic kidney disease, or unspecified chronic kidney disease; E66.01 Morbid (severe) obesity due to excess calories; E78.5 Hyperlipidemia, unspecified; W18.30XD Fall on same level, unspecified, subsequent encounter
CPT/HCPCS: 36415; 36416; 80048; 85025; 87070; 87205; 94640; J1650; J1815; J7620; J7626

== ENCOUNTER 2019-10-15 12:42 | Emergency (ER) | payer MEDICARE ==
[2019-10-15 13:32] LABS: #Basophils 0.1 thou/uL (0.0-0.2); #Eosinphils 0.8 thou/uL (0.0-0.7); #Lymphocytes 1.2 thou/uL (1.20-3.40); #Monocytes 1.4 thou/uL (0.11-0.59); #Neutrophils 9.3 thou/uL (1.40-6.50); %Basophils 0.9 % (0.0-1.0); %Eosinophils 6.1 % (0.0-10.0); %Lymphocytes 9.1 % (21.0-51.0); %Monocytes 11.1 % (0.0-10.0); %Neutrophils 72.8 % (42.0-75.0); Hemoglobin 10.2 g/dL (14.0-18.0); Mean Corpuscular HGB CONC 30.8 g/dL (32.0-36.0); Mean Corpuscular Hemoglobin 29.7 pg (27.0-31.0); Mean Corpuscular Volume 96.4 fL (78.0-98.0); Mean Platelet Volume 7.5 fL (7.4-10.4); Platelet Count 208 thou/uL (130-400); RBC Distribution Width 13.1 % (11.5-14.5); Red Blood Cell (RBC) Count 3.45 mill/uL (4.70-6.10); White Blood Cell (WBC) Count 12.8 thou/uL (4.8-10.8)
--- NOTE | 2019-10-15 13:48 | RAD ---
Chest one view HISTORY: Dyspnea. COMPARISON: 10/13/2019. FINDINGS: Cardiac silhouette is magnified and enlarged. Pulmonary vasculature remains markedly engorg ed with dense bilateral perihilar infiltrates and widespread reticulonodular interstitial prominence more focal area of parenchymal infiltrate at the right suprahilar level is similar in appe arance to the prior exam. No evidence of pneumothorax. IMPRESSION: Radiographic findings of CHF.
[2019-10-15 13:57] LABS: ALT (SGPT) 21 U/L (8-55); AST (SGOT) 24 U/L (5-34); Albumin 3.3 g/dL (3.4-4.8); Alkaline Phosphatase 121 U/L (40-110); Anion Gap 15 mmol/L (10-20); BUN (Urea Nitrogen) 52 mg/dL (8.4-25.7); Bilirubin, Total 0.3 mg/dL (0.2-1.2); Calc. Creatinine Clearance 0 mL/min (70-130); Calcium 8.3 mg/dL (7.8-10.44); Carbon Dioxide 31 mmol/L (23-31); Chloride 103 mmol/L (98-107); Estimated GFR-MDRD 34; Globulin 2.8 g/dL (2.4-3.5); Glucose 97 mg/dL (83-110); Potassium 4.5 mmol/L (3.5-5.1); Protein, Total 6.1 g/dL (5.8-8.1); Sodium 144 mmol/L (136-145)
[2019-10-15 14:15] LABS: CKMB 1.1 ng/mL (0-6.6)
== END 2019-10-15 15:38 | disposition home or self-care (01) ==
LOC: NAV ERS 12:42
DX: I11.0 Hypertensive heart disease with heart failure (principal); I50.9 Heart failure, unspecified; J44.9 Chronic obstructive pulmonary disease, unspecified; I25.10 Atherosclerotic heart disease of native coronary artery without angina pectoris; K21.9 Gastro-esophageal reflux disease without esophagitis; E78.5 Hyperlipidemia, unspecified; E78.00 Pure hypercholesterolemia, unspecified; M10.9 Gout, unspecified; E11.42 Type 2 diabetes mellitus with diabetic polyneuropathy; F41.9 Anxiety disorder, unspecified; F32.9 Major depressive disorder, single episode, unspecified; Z79.82 Long term (current) use of aspirin; Z79.899 Other long term (current) drug therapy; Z79.2 Long term (current) use of antibiotics; Z79.4 Long term (current) use of insulin
CPT/HCPCS: 71045; 80053; 82553; 83880; 84484; 85025; 93005

== ENCOUNTER 2020-05-25 18:24 | Inpatient (IN) | payer MEDICARE ==
[2020-05-25] MEDS ORDERED: Ventolin HFA Inhaler 60 PUFF INHALER INH PRN (21:11)
[2020-05-25] MEDS ORDERED: Lidocaine 5% Patch TD PRN (21:21)
[2020-05-25] MEDS ORDERED: Lidocaine Patch Removal 1 EACH TOP PRN ×2 (21:22→21:24)
[2020-05-25] MEDS: Acetaminophen 325 MG TAB PO PRN (21:54)
[2020-05-25] MEDS ORDERED: Carvedilol 25 MG TAB PO SCH (22:00)
[2020-05-25] MEDS ORDERED: Atorvastatin Calcium 40 MG TAB PO SCH (22:00)
[2020-05-25] MEDS ORDERED: Mometasone/Formoterol 200/5 60 PUFF INH SCH (22:00)
[2020-05-25] MEDS ORDERED: Tamsulosin HCl 0.4 MG CAP PO SCH (22:00)
[2020-05-25] MEDS ORDERED: Sodium Chloride 0.65% Nasal 44 ML BOT EA NARE SCH (22:00)
[2020-05-25] MEDS ORDERED: Dofetilide 0.125 MG CAP PO SCH (22:00)
[2020-05-25] MEDS ORDERED: hydrALAZINE 25 MG TAB PO SCH (22:00)
[2020-05-25] MEDS ORDERED: Apixaban 2.5 MG TAB PO SCH (22:00)
[2020-05-26 05:22] LABS: %Basophils 1.6 % (0.0-1.0); %Lymphocytes 14.2 % (21.0-51.0); %Monocytes 12.9 % (0.0-10.0); %Neutrophils 65.2 % (42.0-75.0); Hemoglobin 8.3 g/dL (14.0-18.0); Manual Diff?? NO; Mean Corpuscular HGB CONC 30.6 g/dL (32.0-36.0); Mean Corpuscular Hemoglobin 29.4 pg (27.0-31.0); Mean Corpuscular Volume 96.2 fL (78.0-98.0); Mean Platelet Volume 8.6 fL (7.4-10.4); Platelet Count 151 thou/uL (130-400); RBC Distribution Width 13.5 % (11.5-14.5); Red Blood Cell (RBC) Count 2.81 mill/uL (4.70-6.10); White Blood Cell (WBC) Count 6.9 thou/uL (4.8-10.8)
[2020-05-26 05:23] LABS: #Basophils 0.1 thou/uL (0.0-0.2); #Eosinphils 0.4 thou/uL (0.0-0.7); #Monocytes 0.9 thou/uL (0.11-0.59); #Neutrophils 4.5 thou/uL (1.40-6.50)
[2020-05-26] MEDS: Acetaminophen 325 MG TAB PO PRN ×4 (05:45→23:07)
[2020-05-26] MEDS: Levothyroxine Sodium 25 MCG TAB PO SCH (05:45)
[2020-05-26] MEDS: Levothyroxine Sodium 112 MCG TAB PO SCH (05:45)
[2020-05-26 05:46] LABS: ALT (SGPT) 28 U/L (8-55); AST (SGOT) 31 U/L (5-34); Albumin 2.7 g/dL (3.4-4.8); Alkaline Phosphatase 168 U/L (40-110); Anion Gap 12 mmol/L (10-20); BUN (Urea Nitrogen) 73 mg/dL (8.4-25.7); Bilirubin, Total 0.4 mg/dL (0.2-1.2); Calc. Creatinine Clearance 47 mL/min (70-130); Calcium 8.1 mg/dL (7.8-10.44); Chloride 110 mmol/L (98-107); Estimated GFR-MDRD 31; Globulin 2.7 g/dL (2.4-3.5); Glucose 106 mg/dL (83-110); Potassium 4.3 mmol/L (3.5-5.1); Protein, Total 5.4 g/dL (5.8-8.1); Sodium 144 mmol/L (136-145)
[2020-05-26 05:48] LABS: Carbon Dioxide 26 mmol/L (23-31)
[2020-05-26] MEDS ORDERED: Mometasone/Formoterol 200/5 60 PUFF INH SCH (06:30)
[2020-05-26] MEDS: Ascorbic Acid 500 mg Chewable Tablet PO SCH (08:19)
[2020-05-26] MEDS: Clopidogrel Bisulfate 75 MG TAB PO SCH (08:19)
[2020-05-26] MEDS: Calcium Acetate 667 MG CAP PO SCH ×3 (08:19→16:54)
[2020-05-26] MEDS: Carvedilol 25 MG TAB PO SCH ×2 (08:19→16:54)
[2020-05-26] MEDS: Ferrous Sulfate 325 MG TAB PO SCH (08:20)
[2020-05-26] MEDS: Furosemide 40 MG TAB PO SCH ×2 (08:20→13:58)
[2020-05-26] MEDS: Apixaban 2.5 MG TAB PO SCH ×2 (08:21→20:56)
[2020-05-26] MEDS: Amlodipine 5 MG TAB PO SCH (08:21)
[2020-05-26] MEDS: Ubidecarenone 50 MG CAP PO SCH (08:21)
[2020-05-26] MEDS: Magnesium Oxide 400 MG TAB PO SCH (08:21)
[2020-05-26] MEDS: Allopurinol 100 MG TAB PO SCH (08:22)
[2020-05-26] MEDS: Cholecalciferol 1,000 UNITS (25 MCG) TAB PO SCH (08:23)
[2020-05-26] MEDS: hydrALAZINE 25 MG TAB PO SCH ×3 (08:23→20:56)
[2020-05-26] MEDS: Mometasone/Formoterol 200/5 60 PUFF INH SCH ×2 (08:24→20:53)
[2020-05-26] MEDS: Sodium Chloride 0.65% Nasal 44 ML BOT EA NARE SCH ×2 (08:26→20:55)
[2020-05-26] MEDS: Dofetilide 0.125 MG CAP PO SCH ×2 (08:30→20:56)
[2020-05-26] MEDS ORDERED: Aspirin 81 mg Enteric Coated Tablet PO SCH (09:00)
[2020-05-26] MEDS: CALCIUM LACTATE PO SCH (11:07)
--- NOTE | 2020-05-26 12:39 | HP ---
PRINCIPAL DIAGNOSES: Resolving acute on chronic diastolic congestive heart failure, recent episode of unstable angina, requiring stent placement to RCA and possible non-STEMI as well as episode of atrial flutter/fibrillation, requiring long-term anticoagulation. The patient is here for therapy. BRIEF HISTORY: This is a pleasant 80-year-old male, who is known to me from his previous admission here last May following a hip open reduction and internal fixation, left. He apparently was doing well until his current admission to the hospital, where he noticed worsening shortness of breath. He apparently had an outpatient angiogram done for cardiac clearance as he was scheduled for an elective hip replacement. He presented to the hospital at end of April with worsening shortness of breath and was refractory to BiPAP and was transferred to the ICU and intubated. He was COVID negative. He underwent coronary angiogram on 05/18 and had a stent placed to the right coronary artery. He was on the vent only for 4 days and extubated on May 12. He was treated with IV diuretics for possible flash pulmonary edema, which seemed to help. He also developed an episode of atrial flutter/fibrillation and was started on rate control as well as Eliquis. He was advised to continue Eliquis and Plavix as outpatient. He was treated for pneumonia with antibacterial and finished his course of treatment. He is back on his 2.5 L of oxygen, which is his baseline. He is here for therapy. Currently, he is resting in bed and denies any concerns. He denies any PND or orthopnea. He denies any fever or chills. He states that he is on a mechanically soft diabetic diet and checks his blood sugars twice a day at home. PAST MEDICAL HISTORY: 1. Chronic obstructive pulmonary disease. 2. Hypertension. 3. Obstructive sleep apnea. 4. Hypothyroidism. 5. Depression and anxiety. 6. Diabetes mellitus type 2, on diet control. 7. Restless legs syndrome. 8. Benign prostatic hypertrophy. 9. Chronic hypoxemic respiratory failure. 10. Chronic diastolic congestive heart failure. 11. Coronary artery disease, status post percutaneous transluminal coronary angioplasty stent to the RCA. 12. Recent non-STEMI. 13. Resolving pneumonitis. 14. Recent episode of A-flutter. 15. Chronic kidney disease, stage 3. PAST SURGICAL HISTORY: 1. Hernia repair. 2. Left femur open reduction and internal fixation. 3. Coronary angiogram with stent placement to RCA. PSYCHOSOCIAL HISTORY: He lives at home with his . He was ambulating independently. Denies any current tobacco, alcohol or recreational drug abuse. ALLERGIES: CODEINE. FAMILY HISTORY: Noncontributory to current admission. MEDICATIONS: He has been transferred here on the following medications: 1. Pantoprazole 40 mg b.i.d. 2. Hydralazine 50 mg t.i.d. 3. DuoNeb q.4 p.r.n. 4. Imdur ER 120 mg daily. 5. Levoxyl 137 mcg daily. 6. Lidocaine patch every 12 and off every 12. 7. Mag-Ox 400 mg daily. 8. Nasal spray with saline 2 sprays b.i.d. 9. Tamsulosin 0.4 mg at bedtime. 10. CoQ10 100 mg daily. 11. Carvedilol 25 mg b.i.d. 12. Plavix 75 mg daily. 13. Tikosyn 125 mg b.i.d. 14. Iron sulfate 325 daily. 15. Lasix 40 b.i.d. 16. Allopurinol 300 mg daily. 17. Amlodipine 10 mg daily. 18. Eliquis 2.5 mg b.i.d. 19. It states here aspirin 81, but he is supposed to be only on Plavix and Eliquis. 20. Atorvastatin 80 mg at bedtime. 21. Budesonide and formoterol 2 puffs b.i.d. gargle after use. REVIEW OF SYSTEMS: GENERAL: The patient denies any fever, recent change in weight, worsening fatigue or changes in appetite. CARDIOVASCULAR SYSTEM: Denies any chest pain, shortness of breath, PND, orthopnea or pedal edema. RESPIRATORY SYSTEM: Denies any chronic cough, expectoration or pleuritic-type chest pain. GASTROINTESTINAL SYSTEM: Denies any nausea, vomiting, diarrhea, constipation, hematemesis, melena or hematochezia. GENITOURINARY SYSTEM: Denies any frequency, urgency, dysuria or hematuria. CENTRAL NERVOUS SYSTEM: Generalized weakness, otherwise nonfocal. EXTREMITIES: Constant joint pains. He does have seborrheic dermatitis and stasis dermatitis to both his legs. HEENT: Denies any difficulty or any changes with speech, vision hearing or swallowing. SKIN: Other than the eczematous changes to his chronic stasis dermatitis, nonfocal. PHYSICAL EXAMINATION: GENERAL: This is a very pleasant 80-year-old overweight male, who is well known to me from his previous admission here. He is not in any distress. He is alert, awake, and oriented x3. VITAL SIGNS: He is afebrile. Heart rate 70, respirations 18, oxygen saturation 97% on 2 L, and blood pressure 162/69. HEENT: Normocephalic and atraumatic. Pupils are equally reacting to light and accommodation. NECK: No JVD, thyromegaly or cervical adenopathy. No throat exudates. No carotid bruits. CARDIOVASCULAR SYSTEM: S1 and S2 plus. Rate and rhythm regular. RESPIRATORY SYSTEM: Normal vesicular breath sounds heard in all lung ortez with scattered rhonchi. ABDOMEN: Soft, obese, and nontender. Bowel sounds heard in all quadrants. EXTREMITIES: Without cyanosis or clubbing. Chronic stasis dermatitis. Trace edema. CENTRAL NERVOUS SYSTEM: Awake and responsive. Cranial nerves 2 through 12 intact. Generalized weakness, otherwise nonfocal. LABORATORY DATA: White count of 6.9, H and H are 8.3 and 27. Sodium 144, potassium 4.3, BUN and creatinine of 73 and 2.09. IMPRESSION: 1. Resolving acute on chronic diastolic congestive heart failure. 2. Resolved acute on chronic hypoxemic respiratory failure. 3. Resolved pneumonitis. 4. Chronic hypoxemic respiratory failure. 5. Possible [id number] myocardial infarction recently. 6. Coronary artery disease with recent stent placement in right coronary artery. 7. Atrial flutter, on medications and anticoagulation. 8. Obstructive sleep apnea. 9. Chronic kidney disease stage 3 to 4. 10. Restless legs syndrome. 11. Diabetes mellitus, on diet control. 12. Dyslipidemia. 13. Hypothyroidism. 14. Osteoarthritis. PLAN: 1. Continue current medications, but discontinue aspirin. 2. 1800-calorie heart healthy ADA and mechanically soft renal diet. 3. Accu-Cheks b.i.d. 4. Monitor blood pressure and adjust medications as needed. 5. Monitor heart rate and rhythm. 6. Monitor respiratory status and titrate oxygen as tolerated. 7. Bronchodilators as needed. 8. Reinforced compliance with CPAP. 9. Start triamcinolone cream for his eczematous changes to his stasis dermatitis. 10. DVT prophylaxis - the patient is on Eliquis. 11. Decubitus precautions. 12. Stress ulcer prophylaxis. 13. PT/OT eval and treat. 14. Routine laboratory values. 15. Dr. Das on-call this weekend. 16. Discussed with the patient in detail and all questions answered. Job ID: [id number]
[2020-05-26] MEDS: Tamsulosin HCl 0.4 MG CAP PO SCH (20:56)
[2020-05-26] MEDS: Atorvastatin Calcium 40 MG TAB PO SCH (20:57)
[2020-05-26] MEDS: Triamcinolone 0.1% Cream 15 GM TUBE TOP SCH (20:57)
[2020-05-27] MEDS: Levothyroxine Sodium 112 MCG TAB PO SCH (05:53)
[2020-05-27] MEDS: Levothyroxine Sodium 25 MCG TAB PO SCH (05:53)
[2020-05-27] MEDS ORDERED: hydrALAZINE 25 MG TAB PO SCH (06:30)
[2020-05-27] MEDS: Carvedilol 25 MG TAB PO SCH ×2 (08:05→16:54)
[2020-05-27] MEDS: Calcium Acetate 667 MG CAP PO SCH ×3 (08:05→16:54)
[2020-05-27] MEDS: Ferrous Sulfate 325 MG TAB PO SCH (08:06)
[2020-05-27] MEDS: Amlodipine 5 MG TAB PO SCH (08:07)
[2020-05-27] MEDS: Allopurinol 100 MG TAB PO SCH (08:07)
[2020-05-27] MEDS: Ascorbic Acid 500 mg Chewable Tablet PO SCH (08:08)
[2020-05-27] MEDS: Apixaban 2.5 MG TAB PO SCH ×2 (08:08→20:45)
[2020-05-27] MEDS: Cholecalciferol 1,000 UNITS (25 MCG) TAB PO SCH (08:08)
[2020-05-27] MEDS: Clopidogrel Bisulfate 75 MG TAB PO SCH (08:09)
[2020-05-27] MEDS: Dofetilide 0.125 MG CAP PO SCH ×2 (08:09→20:45)
[2020-05-27] MEDS: Furosemide 40 MG TAB PO SCH ×2 (08:09→14:40)
[2020-05-27] MEDS: Magnesium Oxide 400 MG TAB PO SCH (08:10)
[2020-05-27] MEDS: Mometasone/Formoterol 200/5 60 PUFF INH SCH ×2 (08:10→20:43)
[2020-05-27] MEDS: hydrALAZINE 25 MG TAB PO SCH ×3 (08:10→20:45)
[2020-05-27] MEDS: Sodium Chloride 0.65% Nasal 44 ML BOT EA NARE SCH ×2 (08:12→20:43)
[2020-05-27] MEDS: CALCIUM LACTATE PO SCH (08:12)
[2020-05-27] MEDS: Ubidecarenone 50 MG CAP PO SCH (08:12)
[2020-05-27] MEDS: Triamcinolone 0.1% Cream 15 GM TUBE TOP SCH ×2 (08:12→20:44)
[2020-05-27] MEDS: Acetaminophen 325 MG TAB PO PRN ×3 (08:21→20:44)
--- NOTE | 2020-05-27 09:13 | PRG ---
DATE OF SERVICE: 05/27/2020 SUBJECTIVE: Mr. Marc is a well-developed, well-nourished, somewhat obese 80-year-old white male, who was admitted to the hospital with shortness of breath. He quickly decompensated and had to be intubated and placed in the ICU. He was noted to be COVID negative. He was extubated four days later, treated with IV diuretics for flash pulmonary edema. He did have an episode of atrial fibrillation, atrial flutter, and was rate controlled on medication. He was also started on Eliquis. He was advised to continue Eliquis and Plavix. He finished his dose of antibiotics secondary to his pneumonia. He is on 2.5 L of oxygen, which is his baseline and was transferred to [facility] for physical therapy and occupational therapy. Subjectively, the patient states he is doing well, but his blood pressure was somewhat elevated last night and early this morning up to 191. I did review his medicines. I did increase his hydralazine from 50 mg t.i.d. to 75 mg t.i.d., which we discussed and he is okay with. OBJECTIVE: VITAL SIGNS: Reveal blood pressure last night 171/68, given hydralazine this morning, it is 162/72. Pulse 63, respirations 20, O2 saturation 98% on 2 L. T-max 98.2. LABORATORY DATA: Laboratories reviewed yesterday are good and stable. Point of care glucose reveals a sugar before supper yesterday 136, before bedtime 143, fasting blood sugar not available yet this morning. PHYSICAL EXAMINATION: GENERAL: This is a well-developed, well-nourished, obese, white male, in no apparent distress at this time. HEENT: Reveals normocephalic and nontraumatic cranium. Pupils are equal, round, and reactive. Extraocular movements are intact. Nose and throat are slightly dry. NECK: Supple without masses, nodes, or bruits. CHEST: Clear to auscultation. No rales, rhonchi, or wheezes are noted. HEART: Reveals a regular rate and rhythm without murmurs, gallops, or rubs. ABDOMEN: Obese, soft, nontender without organomegaly. Normal bowel sounds are noted. No rebound or guarding is noted. : Deferred. EXTREMITIES: Reveal no clubbing, cyanosis, or edema. The patient does have stasis dermatitis. ASSESSMENT: 1. Acute on chronic diastolic congestive heart failure. 2. Acute on chronic hypoxic respiratory failure. 3. Possible recent wek-CG-jeuhsdvdi myocardial infarction. 4. Resolving pneumonitis. 5. Coronary artery disease with recent stent placement to the right coronary artery. 6. Recent atrial flutter, presently back in normal sinus on rate control medications and anticoagulation. 7. Chronic kidney disease, stage 3 to 4. 8. Diabetes type 2, controlled by diet. 9. Hyperlipidemia. 10. Hypothyroidism. 11. Osteoarthritis. 12. Obstructive sleep apnea. 13. Restless legs syndrome. 14. Generalized weakness. PLAN: 1. Continue 1800-calorie ADA mechanical soft renal diet. 2. Accu-Cheks before meals and at bedtime to follow blood sugars. 3. Continue to monitor the patient's blood pressure closely and adjust medications as needed. 4. Monitor the patient's heart rate for RVR and flutter. 5. Monitor the patient's respiratory status and titrate oxygen as needed. 6. Continue bronchodilators. 7. Continue CPAP at night. 8. DVT prophylaxis with Eliquis. 9. Decubitus precautions. 10. Stress ulcer prophylaxis. 11. Continue physical therapy and occupational therapy. Job ID: [id number]
[2020-05-27] MEDS: Atorvastatin Calcium 40 MG TAB PO SCH (20:44)
[2020-05-27] MEDS: Tamsulosin HCl 0.4 MG CAP PO SCH (20:44)
[2020-05-28 04:22] VITALS: BMI 38.2
[2020-05-28] MEDS: Levothyroxine Sodium 112 MCG TAB PO SCH (05:45)
[2020-05-28] MEDS: Levothyroxine Sodium 25 MCG TAB PO SCH (05:45)
[2020-05-28] MEDS: Acetaminophen 325 MG TAB PO PRN ×3 (05:52→21:46)
[2020-05-28] MEDS: Carvedilol 25 MG TAB PO SCH ×2 (08:00→17:15)
[2020-05-28] MEDS: Calcium Acetate 667 MG CAP PO SCH ×3 (08:00→17:15)
[2020-05-28] MEDS: Ferrous Sulfate 325 MG TAB PO SCH (08:01)
[2020-05-28] MEDS: Allopurinol 100 MG TAB PO SCH (08:02)
[2020-05-28] MEDS: Amlodipine 5 MG TAB PO SCH (08:03)
[2020-05-28] MEDS: Apixaban 2.5 MG TAB PO SCH ×2 (08:04→21:46)
[2020-05-28] MEDS: Ascorbic Acid 500 mg Chewable Tablet PO SCH (08:04)
[2020-05-28] MEDS: Cholecalciferol 1,000 UNITS (25 MCG) TAB PO SCH (08:04)
[2020-05-28] MEDS: Clopidogrel Bisulfate 75 MG TAB PO SCH (08:04)
[2020-05-28] MEDS: hydrALAZINE 25 MG TAB PO SCH ×3 (08:05→21:45)
[2020-05-28] MEDS: Dofetilide 0.125 MG CAP PO SCH ×2 (08:05→21:44)
[2020-05-28] MEDS: Furosemide 40 MG TAB PO SCH ×2 (08:05→14:25)
[2020-05-28] MEDS: Magnesium Oxide 400 MG TAB PO SCH (08:06)
[2020-05-28] MEDS: Mometasone/Formoterol 200/5 60 PUFF INH SCH ×2 (08:06→23:13)
[2020-05-28] MEDS: CALCIUM LACTATE PO SCH (08:07)
[2020-05-28] MEDS: Triamcinolone 0.1% Cream 15 GM TUBE TOP SCH ×2 (08:08→23:15)
[2020-05-28] MEDS: Ubidecarenone 50 MG CAP PO SCH (08:08)
[2020-05-28] MEDS: Sodium Chloride 0.65% Nasal 44 ML BOT EA NARE SCH ×2 (08:08→23:14)
--- NOTE | 2020-05-28 09:25 | PRG ---
DATE OF SERVICE: 05/28/2020 SUBJECTIVE: Mr. Marc is a well-developed, well-nourished, somewhat obese 80-year-old white male, admitted to the hospital with shortness of breath. He decompensated, had to be intubated and placed in the ICU. He was noted to be COVID negative. Eventually, he was extubated and treated with IV diuretics for flash pulmonary edema. He did have an episode of atrial fib, atrial flutter, and was rate controlled on medication. He was started on Eliquis and advised to continue both his Eliquis and Plavix. He finished his dose of antibiotics secondary to pneumonia. He is now on 2.5 L of oxygen, which keeps him at baseline. He was transferred to [facility] for PT and OT. The patient states he is doing well today. His blood pressure seemingly better. His sugar this morning was 129. He has no concerns or complaints today. OBJECTIVE: VITAL SIGNS: Today reveal blood pressure last night 161/72; this morning, 189/81. He was increased to hydralazine 75 mg t.i.d. and we will continue to follow that closely to see if we need to increase that even further. Pulse 64 to 74, respirations 16 to 23, O2 saturations 97% to 98% on 2 L. T-max 98.0. GENERAL: This is a well-developed, well-nourished, rather large white male, in no apparent distress at this time. HEENT: Reveals normocephalic and nontraumatic cranium. Pupils are equal, round, and reactive. Extraocular movements are intact. Nose and throat are slightly dry, but clear. NECK: Supple without masses, nodes, or bruits. CHEST: Clear to auscultation. No rales, rhonchi, wheezes, or cough is noted. HEART: Reveals a regular rate and rhythm without murmurs, gallops, or rubs. ABDOMEN: Obese, soft, nontender without organomegaly. Normal bowel sounds are noted. No rebound or guarding is noted. : Deferred. EXTREMITIES: Reveal no clubbing or cyanosis, with trace edema. The patient does have stasis dermatitis. ASSESSMENT: 1. Acute on chronic diastolic congestive heart failure, stable. 2. Acute on chronic hypoxic respiratory failure, stable. 3. Recent non-ST elevation myocardial infarction. 4. Resolving pneumonitis. 5. Coronary artery disease with recent stent placement to the right coronary artery. 6. Recent atrial flutter, presently back to normal sinus rhythm, on rate controlled medications and anticoagulation. 7. Chronic kidney disease, stage 3 to 4. 8. Diabetes type 2, controlled by diet. 9. Hyperlipidemia. 10. Hypothyroidism. 11. Osteoarthritis. 12. Obstructive sleep apnea. 13. Restless legs syndrome. 14. Generalized weakness. PLAN: 1. Continue 1800 calorie ADA mechanical soft renal diet. 2. Accu-Cheks a.c. and at bedtime. 3. Continue to monitor the patient's blood pressure closely and adjust hydralazine if needed. 4. Monitor the patient's heart rate for RVR and flutter. 5. Monitor the patient's respiratory status and titrate oxygen as needed. 6. Continue bronchodilators. 7. Continue CPAP at night. 8. DVT prophylaxis with Eliquis. 9. Decubitus precautions. 10. Stress ulcer prophylaxis. 11. Continue physical therapy and occupational therapy. Job ID: [id number]
[2020-05-28] MEDS: Atorvastatin Calcium 40 MG TAB PO SCH (21:43)
[2020-05-28] MEDS: Tamsulosin HCl 0.4 MG CAP PO SCH (21:44)
[2020-05-29 05:14] LABS: Hemoglobin 8.9 g/dL (14.0-18.0); Platelet Count 158 thou/uL (130-400)
[2020-05-29] MEDS: Levothyroxine Sodium 25 MCG TAB PO SCH (06:02)
[2020-05-29] MEDS: Levothyroxine Sodium 112 MCG TAB PO SCH (06:02)
[2020-05-29] MEDS: Mometasone/Formoterol 200/5 60 PUFF INH SCH ×2 (08:32→20:58)
[2020-05-29] MEDS: Triamcinolone 0.1% Cream 15 GM TUBE TOP SCH ×2 (08:32→20:58)
[2020-05-29] MEDS: Clopidogrel Bisulfate 75 MG TAB PO SCH (08:33)
[2020-05-29] MEDS: Cholecalciferol 1,000 UNITS (25 MCG) TAB PO SCH (08:33)
[2020-05-29] MEDS: Amlodipine 5 MG TAB PO SCH (08:33)
[2020-05-29] MEDS: Ascorbic Acid 500 mg Chewable Tablet PO SCH (08:33)
[2020-05-29] MEDS: Magnesium Oxide 400 MG TAB PO SCH (08:34)
[2020-05-29] MEDS: Furosemide 40 MG TAB PO SCH ×2 (08:34→12:56)
[2020-05-29] MEDS: hydrALAZINE 25 MG TAB PO SCH ×3 (08:34→20:59)
[2020-05-29] MEDS: Allopurinol 100 MG TAB PO SCH (08:34)
[2020-05-29] MEDS: Apixaban 2.5 MG TAB PO SCH ×2 (08:34→20:59)
[2020-05-29] MEDS: Ubidecarenone 50 MG CAP PO SCH (08:35)
[2020-05-29] MEDS: Ferrous Sulfate 325 MG TAB PO SCH (08:35)
[2020-05-29] MEDS: Dofetilide 0.125 MG CAP PO SCH ×2 (08:35→20:59)
[2020-05-29] MEDS: Sodium Chloride 0.65% Nasal 44 ML BOT EA NARE SCH ×2 (08:35→20:58)
[2020-05-29] MEDS: Carvedilol 25 MG TAB PO SCH ×2 (08:35→16:31)
[2020-05-29] MEDS: Calcium Acetate 667 MG CAP PO SCH ×3 (08:35→16:31)
[2020-05-29] MEDS: CALCIUM LACTATE PO SCH (08:36)
[2020-05-29] MEDS: Acetaminophen 325 MG TAB PO PRN ×2 (13:23→20:55)
[2020-05-29] MEDS ORDERED: Acetaminophen 325 MG TAB ONE ×2 (20:47→20:56)
[2020-05-29] MEDS: Atorvastatin Calcium 40 MG TAB PO SCH (20:59)
[2020-05-29] MEDS: Tamsulosin HCl 0.4 MG CAP PO SCH (20:59)
[2020-05-29] MEDS ORDERED: Acetaminophen 325 MG TAB PO SCH (21:00)
[2020-05-30] MEDS: Levothyroxine Sodium 112 MCG TAB PO SCH (06:21)
[2020-05-30] MEDS: Levothyroxine Sodium 25 MCG TAB PO SCH (06:21)
[2020-05-30] MEDS ORDERED: Acetaminophen 325 MG TAB ONE ×3 (06:42→14:34)
[2020-05-30] MEDS ORDERED: Acetaminophen 325 MG TAB PO SCH (06:45)
[2020-05-30] MEDS: Acetaminophen 325 MG TAB PO PRN ×3 (06:47→20:25)
[2020-05-30] MEDS: Sodium Chloride 0.65% Nasal 44 ML BOT EA NARE SCH ×2 (08:45→20:26)
[2020-05-30] MEDS: Triamcinolone 0.1% Cream 15 GM TUBE TOP SCH ×2 (08:46→20:26)
[2020-05-30] MEDS: Mometasone/Formoterol 200/5 60 PUFF INH SCH ×2 (08:49→20:26)
[2020-05-30] MEDS: Ferrous Sulfate 325 MG TAB PO SCH (08:50)
[2020-05-30] MEDS: Cholecalciferol 1,000 UNITS (25 MCG) TAB PO SCH (08:50)
[2020-05-30] MEDS: Ubidecarenone 50 MG CAP PO SCH (08:50)
[2020-05-30] MEDS: Dofetilide 0.125 MG CAP PO SCH ×2 (08:50→20:24)
[2020-05-30] MEDS: Calcium Acetate 667 MG CAP PO SCH ×3 (08:50→17:15)
[2020-05-30] MEDS: Allopurinol 100 MG TAB PO SCH (08:51)
[2020-05-30] MEDS: Carvedilol 25 MG TAB PO SCH ×2 (08:52→17:15)
[2020-05-30] MEDS: Apixaban 2.5 MG TAB PO SCH ×2 (08:52→20:25)
[2020-05-30] MEDS: Magnesium Oxide 400 MG TAB PO SCH (08:52)
[2020-05-30] MEDS: hydrALAZINE 25 MG TAB PO SCH ×3 (08:52→20:25)
[2020-05-30] MEDS: Ascorbic Acid 500 mg Chewable Tablet PO SCH (08:53)
[2020-05-30] MEDS: Clopidogrel Bisulfate 75 MG TAB PO SCH (08:53)
[2020-05-30] MEDS: Amlodipine 5 MG TAB PO SCH ×2 (08:53→20:26)
[2020-05-30] MEDS: Furosemide 40 MG TAB PO SCH ×2 (08:53→14:39)
[2020-05-30] MEDS: CALCIUM LACTATE PO SCH (08:54)
--- NOTE | 2020-05-30 09:20 | PRG ---
DATE OF SERVICE: 05/29/2020 SUBJECTIVE: Mr. Marc is doing the same. He really wants to see his . He wants to go home. I advised him to participate with therapy and see what they decide on case conference tomorrow. His blood pressure apparently was high this morning so they held his therapy He got all of his blood pressure medicines and he is doing good, so they should be coming back to work with him. OBJECTIVE: VITAL SIGNS: He is afebrile, heart rate 66, respirations 18, oxygen saturation 98% on room air, and his blood pressure was 149/69. CARDIOVASCULAR SYSTEM: S1 and S2 plus. RESPIRATORY SYSTEM: Normal vesicular breath sounds. ABDOMEN: Soft, obese, and nontender. Bowel sounds heard in all quadrants. EXTREMITIES: Without cyanosis or clubbing. Trace edema with stasis dermatitis improving. CENTRAL NERVOUS SYSTEM: Generalized weakness, otherwise nonfocal. LABORATORY DATA: Blood sugars are 129, 125, 129, and 210. IMPRESSION: 1. Chronic obstructive pulmonary disease. 2. Chronic diastolic congestive heart failure. 3. Hypertension. 4. Obstructive sleep apnea. 5. Hypothyroidism. 6. Diabetes mellitus. 7. Benign prostatic hypertrophy. 8. Coronary artery disease with recent tiv-IS-maahwuzop myocardial infarction, resolving pneumonitis and chronic kidney disease. PLAN: 1. Continue current medications. 2. Physical therapy. 3. 1800-calorie heart healthy ADA renal diet. 4. Accu-Cheks with sliding scale coverage. 5. DVT prophylaxis - he is on Eliquis. 6. Decubitus precaution. 7. Stress ulcer prophylaxis. 8. Reinforced compliance with CPAP. 9. Await case conference tomorrow. Job ID: [id number]
--- NOTE | 2020-05-30 13:46 | PRG ---
DATE OF SERVICE: 05/30/2020 SUBJECTIVE: Mr. Marc is brushing his teeth. He is getting ready to go upstairs for his case conference. 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 With physical therapy, he apparently walked like 30 feet and then 21 feet. He really wants to go home as he is unable to see his spouse. They are going to discuss that with him during his case conference and we will make a decision. Medically, he is doing well with no concerns. OBJECTIVE: VITAL SIGNS: He is afebrile. Heart rate 68; respirations 16; oxygen saturation 98% on 2 L; blood pressure this morning was 191/85, but after he got his medications, it was 148/64. CARDIOVASCULAR: S1 and S2 plus. RESPIRATORY: Normal vesicular breath sounds with occasional crackles. ABDOMEN: Soft, obese, nontender. Bowel sounds heard in all quadrants. EXTREMITIES: Without cyanosis or clubbing. Trace edema. CENTRAL NERVOUS SYSTEM: Improving deconditioning. LABORATORY DATA: Blood sugars are 129, 210, 132, and 159. IMPRESSION: 1. Chronic diastolic congestive heart failure. 2. Chronic hypoxemic respiratory failure. 3. Chronic obstructive pulmonary disease. 4. Coronary artery disease, status post recent stent placement. 5. Hypertension. 6. Obstructive sleep apnea. 7. Hypothyroidism. 8. Diabetes mellitus. 9. Benign prostatic hypertrophy. 10. Chronic kidney disease stage 3 to 4. PLAN: 1. Continue current medications, but change his amlodipine to bedtime. 2. Heart healthy diet. 3. Monitor respiratory status. 4. Reinforced compliance with CPAP. 5. DVT prophylaxis - he is on Eliquis. 6. Decubitus precaution. 7. Stress ulcer prophylaxis. 8. Physical therapy. 9. Routine laboratory values. 10. Monitor heart rate and rhythm. Job ID: [id number]
[2020-05-30] MEDS: Atorvastatin Calcium 40 MG TAB PO SCH (20:24)
[2020-05-30] MEDS: Tamsulosin HCl 0.4 MG CAP PO SCH (20:25)
[2020-05-31] MEDS: Levothyroxine Sodium 112 MCG TAB PO SCH (05:19)
[2020-05-31] MEDS: Levothyroxine Sodium 25 MCG TAB PO SCH (05:19)
[2020-05-31] MEDS: Acetaminophen 325 MG TAB PO PRN ×4 (05:19→23:06)
[2020-05-31] MEDS: Calcium Acetate 667 MG CAP PO SCH ×3 (08:21→17:38)
[2020-05-31] MEDS: Ferrous Sulfate 325 MG TAB PO SCH (08:22)
[2020-05-31] MEDS: Carvedilol 25 MG TAB PO SCH ×2 (08:22→17:38)
[2020-05-31] MEDS: Apixaban 2.5 MG TAB PO SCH ×2 (08:23→20:44)
[2020-05-31] MEDS: Ascorbic Acid 500 mg Chewable Tablet PO SCH (08:23)
[2020-05-31] MEDS: Allopurinol 100 MG TAB PO SCH (08:23)
[2020-05-31] MEDS: Cholecalciferol 1,000 UNITS (25 MCG) TAB PO SCH (08:24)
[2020-05-31] MEDS: Dofetilide 0.125 MG CAP PO SCH ×2 (08:24→20:44)
[2020-05-31] MEDS: Clopidogrel Bisulfate 75 MG TAB PO SCH (08:24)
[2020-05-31] MEDS: Magnesium Oxide 400 MG TAB PO SCH (08:25)
[2020-05-31] MEDS: Furosemide 40 MG TAB PO SCH ×2 (08:25→14:51)
[2020-05-31] MEDS: hydrALAZINE 25 MG TAB PO SCH ×3 (08:25→20:44)
[2020-05-31] MEDS: Mometasone/Formoterol 200/5 60 PUFF INH SCH ×2 (08:26→20:42)
[2020-05-31] MEDS: CALCIUM LACTATE PO SCH (08:26)
[2020-05-31] MEDS: Triamcinolone 0.1% Cream 15 GM TUBE TOP SCH ×2 (08:27→20:42)
[2020-05-31] MEDS: Ubidecarenone 50 MG CAP PO SCH (08:27)
[2020-05-31] MEDS: Sodium Chloride 0.65% Nasal 44 ML BOT EA NARE SCH ×2 (08:27→20:43)
[2020-05-31] MEDS: Amlodipine 5 MG TAB PO SCH (20:43)
[2020-05-31] MEDS: Atorvastatin Calcium 40 MG TAB PO SCH (20:44)
[2020-05-31] MEDS: Tamsulosin HCl 0.4 MG CAP PO SCH (20:44)
[2020-06-01 05:53] LABS: Hemoglobin 8.8 g/dL (14.0-18.0); Platelet Count 173 thou/uL (130-400)
[2020-06-01] MEDS: Levothyroxine Sodium 112 MCG TAB PO SCH (05:53)
[2020-06-01] MEDS: Acetaminophen 325 MG TAB PO PRN ×3 (05:53→18:40)
[2020-06-01] MEDS: Levothyroxine Sodium 25 MCG TAB PO SCH (05:53)
[2020-06-01] MEDS: Carvedilol 25 MG TAB PO SCH ×2 (08:27→17:08)
[2020-06-01] MEDS: Calcium Acetate 667 MG CAP PO SCH ×3 (08:27→17:08)
[2020-06-01] MEDS: Ferrous Sulfate 325 MG TAB PO SCH (08:29)
[2020-06-01] MEDS: Allopurinol 100 MG TAB PO SCH (09:06)
[2020-06-01] MEDS: Apixaban 2.5 MG TAB PO SCH ×2 (09:06→20:26)
[2020-06-01] MEDS: Dofetilide 0.125 MG CAP PO SCH ×2 (09:07→20:25)
[2020-06-01] MEDS: Ascorbic Acid 500 mg Chewable Tablet PO SCH (09:07)
[2020-06-01] MEDS: Clopidogrel Bisulfate 75 MG TAB PO SCH (09:07)
[2020-06-01] MEDS: Cholecalciferol 1,000 UNITS (25 MCG) TAB PO SCH (09:07)
[2020-06-01] MEDS: hydrALAZINE 25 MG TAB PO SCH ×3 (09:07→20:25)
[2020-06-01] MEDS: Furosemide 40 MG TAB PO SCH ×2 (09:07→15:06)
[2020-06-01] MEDS: Mometasone/Formoterol 200/5 60 PUFF INH SCH ×2 (09:08→20:23)
[2020-06-01] MEDS: Magnesium Oxide 400 MG TAB PO SCH (09:08)
[2020-06-01] MEDS: Sodium Chloride 0.65% Nasal 44 ML BOT EA NARE SCH ×2 (09:09→20:23)
[2020-06-01] MEDS: CALCIUM LACTATE PO SCH (09:10)
[2020-06-01] MEDS: Triamcinolone 0.1% Cream 15 GM TUBE TOP SCH ×2 (09:10→20:25)
[2020-06-01] MEDS: Ubidecarenone 50 MG CAP PO SCH (09:11)
--- NOTE | 2020-06-01 13:11 | PRG ---
DATE OF SERVICE: 06/01/2020 SUBJECTIVE: Mr. Marc is up in his chair. His blood pressure is better since I changed his isosorbide to 6 in the morning. He apparently is giving excuses to be working with therapy and I explained him the importance of him working with therapy and getting stronger that he can go home. OBJECTIVE: VITAL SIGNS: He is afebrile. Heart rate 61; respirations 18; O2 saturation 96% on 2 L; blood pressure is 160/67 this morning, and with therapy, it was 151/67 and 129/57. CARDIOVASCULAR: S1 and S2 plus. RESPIRATORY: Normal vesicular breath sounds. ABDOMEN: Soft, nontender. Obese. Bowel sounds heard in all quadrants. EXTREMITIES: Without cyanosis or clubbing. Venous insufficiency with chronic dermatitis. LABORATORY DATA: Hemoglobin and hematocrit are 8.8 and 28.8. Creatinine is 2.07. IMPRESSION: 1. Chronic diastolic congestive heart failure. 2. Hypertension. 3. Dyslipidemia. 4. Coronary artery disease. 5. Atrial fibrillation. 6. Chronic obstructive pulmonary disease. 7. Obstructive sleep apnea and deconditioning. PLAN: 1. Continue current medications. 2. Heart healthy diet. 3. Monitor heart rate and rhythm. 4. Monitor respiratory status. 5. DVT prophylaxis - he is on Eliquis. 6. Decubitus precaution. 7. Stress ulcer prophylaxis. 8. Therapy. 9. Routine laboratory values. Job ID: [id number]
--- NOTE | 2020-06-01 14:22 | PRG ---
DATE OF SERVICE: 05/31/2020 SUBJECTIVE: Mr. Marc is resting in bed. He states that his left ankle hurts with therapy and he would like Tylenol soon, it is ordered q. 6 as needed. OBJECTIVE: VITAL SIGNS: He is afebrile. Heart rate 70, respirations 18, oxygen saturation 94% on room air, blood pressure was 171/74 this morning. I will change the timing of his blood pressure medicines in the morning to 6:00. CARDIOVASCULAR: S1 and S2 plus. RESPIRATORY: Normal vesicular breath sounds. ABDOMEN: Soft, obese, nontender. EXTREMITIES: Without cyanosis or clubbing. Improving stasis dermatitis. IMPRESSION: 1. Chronic hypoxemic respiratory failure. 2. Chronic obstructive pulmonary disease. 3. Obstructive sleep apnea. 4. Chronic diastolic congestive heart failure. 5. Coronary artery disease, status post stent placement. 6. Hypertension. 7. Hypothyroidism. 8. Chronic kidney disease stage 3 to 4. PLAN: 1. Continue current medications with change timing on his carvedilol and hydralazine in the morning to take at 6 in the morning. Actually, I am going to change his isosorbide extended release to 6:00 in the morning and we will see how his response is before I change the other medications. 2. Heart healthy diet. 3. Reinforced compliance with CPAP. 4. Physical therapy. 5. Change Tylenol to schedule. 6. Discussed with the patient in detail. All questions answered. Job ID: [id number]
[2020-06-01] MEDS: Meclizine HCl 25 MG TAB PO PRN (17:08)
[2020-06-01] MEDS: Tamsulosin HCl 0.4 MG CAP PO SCH (20:26)
[2020-06-01] MEDS: Atorvastatin Calcium 40 MG TAB PO SCH (20:26)
[2020-06-01] MEDS: Amlodipine 5 MG TAB PO SCH (20:26)
[2020-06-02] MEDS: Levothyroxine Sodium 25 MCG TAB PO SCH (05:17)
[2020-06-02] MEDS: Levothyroxine Sodium 112 MCG TAB PO SCH (05:17)
[2020-06-02] MEDS: Acetaminophen 325 MG TAB PO PRN ×3 (05:37→20:59)
[2020-06-02] MEDS: Dofetilide 0.125 MG CAP PO SCH ×2 (08:17→20:58)
[2020-06-02] MEDS: Ubidecarenone 50 MG CAP PO SCH (08:17)
[2020-06-02] MEDS: Allopurinol 100 MG TAB PO SCH (08:18)
[2020-06-02] MEDS: Calcium Acetate 667 MG CAP PO SCH ×3 (08:18→16:30)
[2020-06-02] MEDS: Cholecalciferol 1,000 UNITS (25 MCG) TAB PO SCH (08:18)
[2020-06-02] MEDS: Clopidogrel Bisulfate 75 MG TAB PO SCH (08:18)
[2020-06-02] MEDS: Ascorbic Acid 500 mg Chewable Tablet PO SCH (08:18)
[2020-06-02] MEDS: Apixaban 2.5 MG TAB PO SCH ×2 (08:19→20:59)
[2020-06-02] MEDS: Furosemide 40 MG TAB PO SCH ×2 (08:19→15:10)
[2020-06-02] MEDS: hydrALAZINE 25 MG TAB PO SCH ×3 (08:19→20:59)
[2020-06-02] MEDS: Ferrous Sulfate 325 MG TAB PO SCH (08:19)
[2020-06-02] MEDS: Carvedilol 25 MG TAB PO SCH ×2 (08:19→16:30)
[2020-06-02] MEDS: Magnesium Oxide 400 MG TAB PO SCH (08:19)
[2020-06-02] MEDS: Sodium Chloride 0.65% Nasal 44 ML BOT EA NARE SCH ×2 (08:20→20:57)
[2020-06-02] MEDS: Mometasone/Formoterol 200/5 60 PUFF INH SCH ×2 (08:20→20:56)
[2020-06-02] MEDS: Triamcinolone 0.1% Cream 15 GM TUBE TOP SCH ×2 (08:20→20:58)
[2020-06-02] MEDS: CALCIUM LACTATE PO SCH (08:22)
--- NOTE | 2020-06-02 09:56 | PRG ---
DATE OF SERVICE: 06/02/2020 SUBJECTIVE: Mr. Marc is up in bed. He apparently had episode of dizziness yesterday while working with therapy, but his blood pressures were reasonable and did not seem to be related to orthostasis. I started him on some meclizine. This morning, he states that he is feeling better from that standpoint, but he is having significant issues with his left ankle and foot. I asked him whether he spoke with therapy to see if he might benefit from a brace or a boot, and the patient states that the ME already gave him one and he has it at home. I advised him that it really would be beneficial for him to have it here, so he can do better with therapy undergoing. He states that he will have his bring it in. OBJECTIVE: VITAL SIGNS: He is afebrile. Heart rate 69, respirations 22, oxygen saturation 92% on room air, and blood pressure 159/67. CARDIOVASCULAR SYSTEM: S1 and S2 plus. RESPIRATORY: Normal vesicular breath sounds. ABDOMEN: Soft, nontender, and obese. Bowel sounds heard in all quadrants. EXTREMITIES: Without cyanosis or clubbing. Chronic stasis venous insufficiency is present. CENTRAL NERVOUS SYSTEM: Improving deconditioning. LABORATORY DATA: Blood sugars are 151, 139, 165 . IMPRESSION: 1. Coronary artery disease, status post stent placement to right coronary artery. 2. Diabetes mellitus type 2, on diet control. 3. Hypertension. 4. Dyslipidemia. 5. Chronic diastolic congestive heart failure. 6. Obstructive sleep apnea. 7. Atrial fibrillation. 8. Hypothyroidism. 9. Obesity. 10. Left ankle and foot pain. PLAN: 1. Continue current medications. 2. 1800-calorie heart healthy ADA diet. 3. Accu-Cheks with sliding scale coverage. 4. DVT prophylaxis - he is on Eliquis. 5. Decubitus precautions. 6. Stress ulcer prophylaxis. 7. Advised the patient to have his family bring in the orthotic/boot from home for his left foot. 8. Continue therapy. 9. Recheck CBC and BMP tomorrow. 10. Reinforced compliance with CPAP. 11. Discussed with the patient and nursing in detail. 12. Dr. Das on-call this weekend. Job ID: [id number]
[2020-06-02] MEDS: Atorvastatin Calcium 40 MG TAB PO SCH (20:59)
[2020-06-02] MEDS: Amlodipine 5 MG TAB PO SCH (20:59)
[2020-06-02] MEDS: Tamsulosin HCl 0.4 MG CAP PO SCH (20:59)
[2020-06-03 05:30] LABS: #Basophils 0.1 thou/uL (0.0-0.2); #Eosinphils 0.6 thou/uL (0.0-0.7); #Lymphocytes 1.5 thou/uL (1.20-3.40); #Monocytes 0.8 thou/uL (0.11-0.59); #Neutrophils 3.8 thou/uL (1.40-6.50); %Basophils 1.2 % (0.0-1.0); %Eosinophils 8.8 % (0.0-10.0); %Lymphocytes 21.9 % (21.0-51.0); %Monocytes 12.4 % (0.0-10.0); %Neutrophils 55.7 % (42.0-75.0); Hemoglobin 8.7 g/dL (14.0-18.0); Mean Corpuscular HGB CONC 30.8 g/dL (32.0-36.0); Mean Corpuscular Hemoglobin 29.9 pg (27.0-31.0); Mean Corpuscular Volume 96.8 fL (78.0-98.0); Mean Platelet Volume 9.3 fL (7.4-10.4); Platelet Count 169 thou/uL (130-400); RBC Distribution Width 13.8 % (11.5-14.5); White Blood Cell (WBC) Count 6.8 thou/uL (4.8-10.8)
[2020-06-03 05:31] LABS: Anion Gap 13 mmol/L (10-20); BUN (Urea Nitrogen) 44 mg/dL (8.4-25.7); Calc. Creatinine Clearance 52 mL/min (70-130); Calcium 8.2 mg/dL (7.8-10.44); Carbon Dioxide 31 mmol/L (23-31); Chloride 104 mmol/L (98-107); Estimated GFR-MDRD 37; Glucose 114 mg/dL (83-110); Potassium 4.1 mmol/L (3.5-5.1); Sodium 144 mmol/L (136-145)
[2020-06-03] MEDS: Levothyroxine Sodium 25 MCG TAB PO SCH (05:35)
[2020-06-03] MEDS: Levothyroxine Sodium 112 MCG TAB PO SCH (05:35)
[2020-06-03] MEDS: Acetaminophen 325 MG TAB PO PRN ×3 (05:40→20:57)
[2020-06-03] MEDS: Ubidecarenone 50 MG CAP PO SCH (08:10)
[2020-06-03] MEDS: hydrALAZINE 25 MG TAB PO SCH ×3 (08:10→20:57)
[2020-06-03] MEDS: Dofetilide 0.125 MG CAP PO SCH ×2 (08:10→20:56)
[2020-06-03] MEDS: Furosemide 40 MG TAB PO SCH ×2 (08:10→15:09)
[2020-06-03] MEDS: Carvedilol 25 MG TAB PO SCH ×2 (08:10→16:15)
[2020-06-03] MEDS: Apixaban 2.5 MG TAB PO SCH ×2 (08:10→20:56)
[2020-06-03] MEDS: Ferrous Sulfate 325 MG TAB PO SCH (08:10)
[2020-06-03] MEDS: Magnesium Oxide 400 MG TAB PO SCH (08:10)
[2020-06-03] MEDS: Ascorbic Acid 500 mg Chewable Tablet PO SCH (08:11)
[2020-06-03] MEDS: Calcium Acetate 667 MG CAP PO SCH ×3 (08:11→16:15)
[2020-06-03] MEDS: Clopidogrel Bisulfate 75 MG TAB PO SCH (08:11)
[2020-06-03] MEDS: Cholecalciferol 1,000 UNITS (25 MCG) TAB PO SCH (08:11)
[2020-06-03] MEDS: Mometasone/Formoterol 200/5 60 PUFF INH SCH ×2 (08:11→20:54)
[2020-06-03] MEDS: Allopurinol 100 MG TAB PO SCH (08:11)
[2020-06-03] MEDS: CALCIUM LACTATE PO SCH (08:12)
[2020-06-03] MEDS: Sodium Chloride 0.65% Nasal 44 ML BOT EA NARE SCH ×2 (08:12→20:54)
--- NOTE | 2020-06-03 09:14 | PRG ---
DATE OF SERVICE: 06/03/2020 SUBJECTIVE: Mr. Marc is a well-developed, well-nourished, very pleasant 80-year-old white male, admitted to the hospital with shortness of breath. He decompensated and was intubated and placed in the ICU. He was COVID negative. He eventually was diuresed and stabilized. He was started on Eliquis for his atrial fibrillation and flutter and transferred to [facility] for physical therapy and occupational therapy. He has actually been doing very well. The patient states he is doing well today except his left foot hurts. He states he does have a history of arthritis and gout. I do not see a recent uric acid, so we will do that. The other complicating issue is that the patient has had orthotic for his left foot, which he has not been wearing. He is supposed to bring it from home because the [facility] gave him that. It may be that we were over working that leg and needs that orthotic for support. OBJECTIVE: VITAL SIGNS: Today reveal blood pressure 161/71, pulse 62, respirations 18, O2 saturation 99% on 2 L, and T-max 97.1. GENERAL: This is a well-developed, well-nourished, somewhat obese white male, in no apparent distress at this time. HEENT: Reveals normocephalic and nontraumatic cranium. The pupils are equally round and reactive. Extraocular movements are intact. Nose and throat are slightly dry. NECK: Supple without masses, nodes, or bruits. CHEST: Clear to auscultation. No rales, rhonchi, wheezes, or cough is heard. HEART: Reveals a regular rate and rhythm without murmurs, gallops, or rubs. ABDOMEN: Obese, soft, and nontender without organomegaly. Normal bowel sounds are noted in all 4 quadrants. : Deferred. EXTREMITIES: Reveal no clubbing, cyanosis, or edema. The patient does have chronic venous stasis. The patient's ankle on the left side is not significant swollen or red, but it is painful. ASSESSMENT: 1. Coronary artery disease, status post stent to the right coronary artery. 2. Diabetes type 2, fairly well controlled. 3. Hypertension, occasionally up a little bit, but stable. 4. Hyperlipidemia. 5. Chronic diastolic congestive heart failure. 6. Obstructive sleep apnea. 7. Atrial fibrillation. 8. Hypothyroidism. 9. Moderate to severe obesity. 10. Left ankle and foot pain. 11. Generalized weakness. PLAN: 1. Continue 1800-calorie ADA diet and watch the carb intake. 2. Continue Accu-Cheks before meals and at bedtime. 3. Continue Eliquis and Plavix. 4. Decubitus precautions. 5. Stress ulcer prophylaxis. 6. The patient is supposed to have his orthotic boot brought in from home for his left foot. 7. CBC reveals a hemoglobin 8.7, hematocrit 28, with a WBC of 6.8, and platelet count of 169,000. His sodium is good at 144, potassium is 4.1, BUN is 44, creatinine is 0.76, and we did encourage him to drink more liquids. 8. Continue using CPAP nightly. 9. I will follow up with the patient tomorrow. Job ID: [id number] MTDD
[2020-06-03] MEDS: Atorvastatin Calcium 40 MG TAB PO SCH (20:56)
[2020-06-03] MEDS: Tamsulosin HCl 0.4 MG CAP PO SCH (20:56)
[2020-06-03] MEDS: Amlodipine 5 MG TAB PO SCH (20:56)
[2020-06-04] MEDS: Levothyroxine Sodium 112 MCG TAB PO SCH (05:25)
[2020-06-04] MEDS: Levothyroxine Sodium 25 MCG TAB PO SCH (05:25)
[2020-06-04] MEDS: Acetaminophen 325 MG TAB PO PRN ×3 (05:25→20:45)
[2020-06-04 05:54] LABS: Hemoglobin 8.9 g/dL (14.0-18.0); Platelet Count 177 thou/uL (130-400)
[2020-06-04] MEDS: Ferrous Sulfate 325 MG TAB PO SCH (09:00)
--- NOTE | 2020-06-04 09:17 | PRG ---
DATE OF SERVICE: 06/04/2020 SUBJECTIVE: Mr. Marc is an 80-year-old white male, admitted to the hospital with shortness of breath. He decompensated and had to be intubated and placed in the ICU. Eventually, he was checked and noted to be COVID negative, and eventually, diuresed and stabilized. He was started on Eliquis for his atrial fibrillation, flutter and transferred to [facility] for physical therapy and occupational therapy. He has actually been here for about 10 days. He is actually doing better. The patient has been refusing his showers and bed bath, so I did instruct him that he would have to have one today. I did talk with his nurse, Daron, who will make sure that he gets his bath today. He has had some arthritis mainly in his left foot. He has a history of gout, so we did a uric acid yesterday, which was unremarkable and it was 5.6. He also told to the nurses that he had orthotics at home. His brought them up, but they were just puffy heel protectors that he had. We will need to order orthotics for that left foot. Otherwise, the patient states he is doing well and has no concerns. OBJECTIVE: VITAL SIGNS: Today reveal blood pressure slightly elevated this morning at 160/70, pulse 61 to 63, respirations 18 to 20, O2 saturation per nasal cannula. The patient does wear CPAP at night. HEENT: Normocephalic and nontraumatic cranium. Pupils are equal, round, and reactive. Slightly dry. NECK: Supple without masses, nodes, or bruits. CHEST: Clear to auscultation. No rales, rhonchi, or wheezes are heard. HEART: Regular rate and rhythm without murmurs, gallops, or rubs. ABDOMEN: Obese, soft, nontender without organomegaly. Normal bowel sounds in all 4 quadrants are noted. No rebound or guarding is noted. : Deferred. EXTREMITIES: No clubbing, cyanosis, or edema. The patient does have chronic venous stasis. Left side is not swollen or red, does not look like gout, may most likely would be osteoarthritis. ASSESSMENT: 1. Coronary artery disease, status post stent to the right coronary artery. 2. Diabetes type 2, fairly well controlled. 3. Hypertension, occasionally elevated. 4. Hyperlipidemia. 5. Chronic diastolic congestive heart failure. 6. Obstructive sleep apnea and he wears CPAP at night. 7. Atrial fibrillation. 8. Hypothyroidism. 9. Moderate severe obesity. 10. Left ankle and foot pain, most likely not gout. 11. Generalized weakness. PLAN: 1. We will get physical therapy to order orthotics since what he brought in was puffy heel protectors. 2. Continue to monitor the patient's Accu-Cheks for his diabetes and do those a.c. and at bedtime. 3. Continue Eliquis and Plavix for DVT prophylaxis. 4. Decubitus precautions. 5. Stress ulcer prophylaxis. 6. Continue 1800 ADA diet, watch the carb intake. 7. Continue CPAP nightly. 8. Continue with present therapy and Dr. Rendon will be back tonight after 9 o' clock. Job ID: [id number] MTDD
[2020-06-04] MEDS: Ubidecarenone 50 MG CAP PO SCH (09:23)
[2020-06-04] MEDS: Allopurinol 100 MG TAB PO SCH (09:24)
[2020-06-04] MEDS: Cholecalciferol 1,000 UNITS (25 MCG) TAB PO SCH (09:24)
[2020-06-04] MEDS: Carvedilol 25 MG TAB PO SCH ×2 (09:24→16:59)
[2020-06-04] MEDS: Calcium Acetate 667 MG CAP PO SCH ×3 (09:24→16:59)
[2020-06-04] MEDS: Clopidogrel Bisulfate 75 MG TAB PO SCH (09:24)
[2020-06-04] MEDS: Ascorbic Acid 500 mg Chewable Tablet PO SCH (09:24)
[2020-06-04] MEDS: Magnesium Oxide 400 MG TAB PO SCH (09:24)
[2020-06-04] MEDS: Apixaban 2.5 MG TAB PO SCH ×2 (09:25→20:43)
[2020-06-04] MEDS: Dofetilide 0.125 MG CAP PO SCH ×2 (09:25→20:44)
[2020-06-04] MEDS: CALCIUM LACTATE PO SCH (09:25)
[2020-06-04] MEDS: Furosemide 40 MG TAB PO SCH ×2 (09:25→15:29)
[2020-06-04] MEDS: hydrALAZINE 25 MG TAB PO SCH ×3 (09:25→20:44)
[2020-06-04] MEDS: Sodium Chloride 0.65% Nasal 44 ML BOT EA NARE SCH ×2 (09:26→20:41)
[2020-06-04] MEDS: Mometasone/Formoterol 200/5 60 PUFF INH SCH ×2 (09:26→20:42)
[2020-06-04] MEDS: Tamsulosin HCl 0.4 MG CAP PO SCH (20:43)
[2020-06-04] MEDS: Amlodipine 5 MG TAB PO SCH (20:44)
[2020-06-04] MEDS: Atorvastatin Calcium 40 MG TAB PO SCH (20:44)
[2020-06-05] MEDS: Levothyroxine Sodium 25 MCG TAB PO SCH (05:26)
[2020-06-05] MEDS: Levothyroxine Sodium 112 MCG TAB PO SCH (05:26)
[2020-06-05] MEDS: Acetaminophen 325 MG TAB PO PRN ×3 (05:27→18:04)
[2020-06-05] MEDS: Calcium Acetate 667 MG CAP PO SCH ×3 (07:52→16:50)
[2020-06-05] MEDS: Carvedilol 25 MG TAB PO SCH ×2 (07:52→16:51)
[2020-06-05] MEDS: Allopurinol 100 MG TAB PO SCH (07:53)
[2020-06-05] MEDS: Apixaban 2.5 MG TAB PO SCH ×2 (07:53→20:20)
[2020-06-05] MEDS: Ferrous Sulfate 325 MG TAB PO SCH (07:53)
[2020-06-05] MEDS: Ascorbic Acid 500 mg Chewable Tablet PO SCH (07:53)
[2020-06-05] MEDS: Cholecalciferol 1,000 UNITS (25 MCG) TAB PO SCH (07:54)
[2020-06-05] MEDS: hydrALAZINE 25 MG TAB PO SCH ×3 (07:54→20:19)
[2020-06-05] MEDS: Furosemide 40 MG TAB PO SCH ×2 (07:54→14:31)
[2020-06-05] MEDS: Clopidogrel Bisulfate 75 MG TAB PO SCH (07:54)
[2020-06-05] MEDS: Dofetilide 0.125 MG CAP PO SCH ×2 (07:54→20:20)
[2020-06-05] MEDS: Mometasone/Formoterol 200/5 60 PUFF INH SCH ×2 (07:55→20:21)
[2020-06-05] MEDS: Magnesium Oxide 400 MG TAB PO SCH (07:55)
[2020-06-05] MEDS: Sodium Chloride 0.65% Nasal 44 ML BOT EA NARE SCH ×2 (07:56→20:20)
[2020-06-05] MEDS: CALCIUM LACTATE PO SCH (07:56)
[2020-06-05] MEDS: Ubidecarenone 50 MG CAP PO SCH (07:57)
[2020-06-05] MEDS: Meclizine HCl 25 MG TAB PO PRN (11:40)
--- NOTE | 2020-06-05 13:15 | PRG ---
DATE OF SERVICE: 06/05/2020 SUBJECTIVE: Mr. Marc is up in his recliner. He apparently did not have his family bring in his high-top boot for his left ankle over the weekend. He is aware of the importance of participating in therapy. OBJECTIVE: VITAL SIGNS: He is afebrile. Heart rate 67, respirations 18, oxygen saturation 96% on 2 L, and blood pressure 155/68. CARDIOVASCULAR: S1 and S2 plus. RESPIRATORY: Normal vesicular breath sounds. ABDOMEN: Soft, nontender. Bowel sounds heard in all quadrants. EXTREMITIES: Without cyanosis or clubbing. Trace edema. CENTRAL NERVOUS SYSTEM: Generalized weakness. IMPRESSION: 1. Coronary artery disease, status post stent placement to RCA. 2. Obstructive sleep apnea. 3. Chronic hypoxemic respiratory failure. 4. Chronic obstructive pulmonary disease. 5. Chronic diastolic congestive heart failure. 6. History of left hip fracture. 7. Diabetes mellitus, type 2. 8. BPH. PLAN: 1. Continue current medications. 2. Reinforced compliance with CPAP. 3. Advised the patient's family bring in his high-top boot/orthotic for his left ankle pain. 4. Nutritional support with heart healthy diet. 5. Monitor respiratory and cardiovascular status. 6. DVT prophylaxis - he is on Eliquis. 7. Decubitus precautions. 8. Stress ulcer prophylaxis. 9. Routine lab values. Job ID: [id number]
[2020-06-05] MEDS: Amlodipine 5 MG TAB PO SCH (20:19)
[2020-06-05] MEDS: Atorvastatin Calcium 40 MG TAB PO SCH (20:19)
[2020-06-05] MEDS: Tamsulosin HCl 0.4 MG CAP PO SCH (20:20)
[2020-06-06] MEDS: Levothyroxine Sodium 112 MCG TAB PO SCH (05:56)
[2020-06-06] MEDS: Levothyroxine Sodium 25 MCG TAB PO SCH (05:56)
[2020-06-06] MEDS: Acetaminophen 325 MG TAB PO PRN ×3 (05:58→20:58)
[2020-06-06] MEDS: Calcium Acetate 667 MG CAP PO SCH ×3 (08:02→17:06)
[2020-06-06] MEDS: Ferrous Sulfate 325 MG TAB PO SCH (08:03)
[2020-06-06] MEDS: Allopurinol 100 MG TAB PO SCH (08:03)
[2020-06-06] MEDS: Carvedilol 25 MG TAB PO SCH ×2 (08:03→17:06)
[2020-06-06] MEDS: Clopidogrel Bisulfate 75 MG TAB PO SCH (08:04)
[2020-06-06] MEDS: Cholecalciferol 1,000 UNITS (25 MCG) TAB PO SCH (08:04)
[2020-06-06] MEDS: Ascorbic Acid 500 mg Chewable Tablet PO SCH (08:04)
[2020-06-06] MEDS: Apixaban 2.5 MG TAB PO SCH ×2 (08:04→20:52)
[2020-06-06] MEDS: Dofetilide 0.125 MG CAP PO SCH ×2 (08:04→20:52)
[2020-06-06] MEDS: hydrALAZINE 25 MG TAB PO SCH ×3 (08:05→20:53)
[2020-06-06] MEDS: Mometasone/Formoterol 200/5 60 PUFF INH SCH ×2 (08:05→21:01)
[2020-06-06] MEDS: Furosemide 40 MG TAB PO SCH ×2 (08:05→14:41)
[2020-06-06] MEDS: Magnesium Oxide 400 MG TAB PO SCH (08:05)
[2020-06-06] MEDS: CALCIUM LACTATE PO SCH (08:06)
[2020-06-06] MEDS: Sodium Chloride 0.65% Nasal 44 ML BOT EA NARE SCH ×2 (08:07→21:01)
[2020-06-06] MEDS: Ubidecarenone 50 MG CAP PO SCH (08:07)
--- NOTE | 2020-06-06 14:32 | PRG ---
DATE OF SERVICE: 06/06/2020 SUBJECTIVE: Mr. Marc is doing well. He apparently got his high-top boot from home, which was given from [place] for his left ankle pain. He apparently did well with therapy. He feels like he is ready. I told him his case conference today and we will see what therapist states. OBJECTIVE: VITAL SIGNS: He is afebrile, heart rate is 62, respirations 18, oxygen saturation 97% on 2 L, and blood pressure is 138/61. CARDIOVASCULAR SYSTEM: S1 and S2 plus. RESPIRATORY SYSTEM: Normal vesicular breath sounds. ABDOMEN: Soft, obese, nontender. Bowel sounds heard in all quadrants. EXTREMITIES: Without cyanosis or clubbing. CENTRAL NERVOUS SYSTEM: Generalized weakness. Otherwise, nonfocal. IMPRESSION: 1. Chronic obstructive pulmonary disease. 2. Obstructive sleep apnea. 3. Coronary artery disease with recent stent placement. 4. Atrial fibrillation. 5. Chronic diastolic congestive heart failure. 6. Restless legs syndrome. 7. Improving deconditioning. PLAN: 1. Continue current medications. 2. Trial of knee high LIBERTY hose. 3. Heart-healthy diet. 4. Reinforced compliance with CPAP. 5. DVT prophylaxis-he is on Eliquis. 6. Decubitus precautions. 7. Stress ulcer prophylaxis. 8. Routine laboratory values. 9. Discharge planning. Job ID: [id number]
[2020-06-06] MEDS: Tamsulosin HCl 0.4 MG CAP PO SCH (20:51)
[2020-06-06] MEDS: Atorvastatin Calcium 40 MG TAB PO SCH (20:52)
[2020-06-06] MEDS: Amlodipine 5 MG TAB PO SCH (20:54)
[2020-06-07] MEDS: Levothyroxine Sodium 25 MCG TAB PO SCH (05:07)
[2020-06-07] MEDS: Levothyroxine Sodium 112 MCG TAB PO SCH (05:07)
[2020-06-07] MEDS: Acetaminophen 325 MG TAB PO PRN ×3 (05:11→20:46)
[2020-06-07] MEDS: Sodium Chloride 0.65% Nasal 44 ML BOT EA NARE SCH ×2 (08:29→20:50)
[2020-06-07] MEDS: Ubidecarenone 50 MG CAP PO SCH (08:30)
[2020-06-07] MEDS: Calcium Acetate 667 MG CAP PO SCH ×3 (08:30→16:39)
[2020-06-07] MEDS: Mometasone/Formoterol 200/5 60 PUFF INH SCH ×2 (08:30→20:50)
[2020-06-07] MEDS: Dofetilide 0.125 MG CAP PO SCH ×2 (08:30→20:46)
[2020-06-07] MEDS: Apixaban 2.5 MG TAB PO SCH ×2 (08:31→20:46)
[2020-06-07] MEDS: Allopurinol 100 MG TAB PO SCH (08:31)
[2020-06-07] MEDS: hydrALAZINE 25 MG TAB PO SCH ×3 (08:31→20:47)
[2020-06-07] MEDS: Magnesium Oxide 400 MG TAB PO SCH (08:31)
[2020-06-07] MEDS: Clopidogrel Bisulfate 75 MG TAB PO SCH (08:31)
[2020-06-07] MEDS: Cholecalciferol 1,000 UNITS (25 MCG) TAB PO SCH (08:31)
[2020-06-07] MEDS: Ascorbic Acid 500 mg Chewable Tablet PO SCH (08:31)
[2020-06-07] MEDS: CALCIUM LACTATE PO SCH (08:32)
[2020-06-07] MEDS: Ferrous Sulfate 325 MG TAB PO SCH (08:32)
[2020-06-07] MEDS: Furosemide 40 MG TAB PO SCH ×2 (08:32→14:42)
[2020-06-07] MEDS: Carvedilol 25 MG TAB PO SCH ×2 (08:32→16:40)
--- NOTE | 2020-06-07 13:22 | PRG ---
DATE OF SERVICE: 06/07/2020 SUBJECTIVE: Mr. Marc is doing well. Denies any complaints. He apparently had family training with his this morning. Plan is to try to get him home this weekend if is comfortable. He apparently was on citalopram in the past. He is not on it. Since plan is to discharge him home this weekend, family would like to wait to restart the medication. His orthostasis seems to be better. OBJECTIVE: VITAL SIGNS: His blood pressure lying was 133/62 and standing was 150/65, heart rate 76, respirations 18, oxygen saturations 97% on 2 L. CARDIOVASCULAR: S1-S2 plus. RESPIRATORY: Normal vesicular breath sounds. ABDOMEN: Soft and nontender. Bowel sounds heard in all quadrants. EXTREMITIES: Without cyanosis or clubbing. CENTRAL NERVOUS SYSTEM: Improving deconditioning. IMPRESSION: 1. Coronary artery disease with recent stent placement to right coronary artery. 2. Chronic obstructive pulmonary disease. 3. Chronic hypoxemic respiratory failure. 4. Obstructive sleep apnea. 5. Diabetes mellitus type 2. 6. Hypertension. 7. Dyslipidemia. 8. Hypothyroidism. 9. Restless legs syndrome. PLAN: 1. Continue current medications. 2. Nutritional support with heart healthy diet. 3. Accu-Cheks with sliding scale coverage. 4. DVT prophylaxis. He is on Eliquis. 5. Decubitus precautions. 6. Stress ulcer prophylaxis. 7. Discharge planning. Job ID: [id number]
[2020-06-07] MEDS: Tamsulosin HCl 0.4 MG CAP PO SCH (20:46)
[2020-06-07] MEDS: Citalopram 20 MG TAB PO SCH (20:46)
[2020-06-07] MEDS: Atorvastatin Calcium 40 MG TAB PO SCH (20:46)
[2020-06-07] MEDS: Amlodipine 5 MG TAB PO SCH (20:47)
[2020-06-08] MEDS: Levothyroxine Sodium 112 MCG TAB PO SCH (05:26)
[2020-06-08] MEDS: Levothyroxine Sodium 25 MCG TAB PO SCH (05:26)
[2020-06-08] MEDS: Acetaminophen 325 MG TAB PO PRN ×3 (05:26→21:11)
[2020-06-08] MEDS: Allopurinol 100 MG TAB PO SCH (08:15)
[2020-06-08] MEDS: Ubidecarenone 50 MG CAP PO SCH (08:15)
[2020-06-08] MEDS: Calcium Acetate 667 MG CAP PO SCH ×3 (08:15→16:56)
[2020-06-08] MEDS: Dofetilide 0.125 MG CAP PO SCH ×2 (08:15→21:12)
[2020-06-08] MEDS: Cholecalciferol 1,000 UNITS (25 MCG) TAB PO SCH (08:16)
[2020-06-08] MEDS: Clopidogrel Bisulfate 75 MG TAB PO SCH (08:16)
[2020-06-08] MEDS: Carvedilol 25 MG TAB PO SCH ×2 (08:16→16:56)
[2020-06-08] MEDS: hydrALAZINE 25 MG TAB PO SCH ×3 (08:16→21:13)
[2020-06-08] MEDS: Ascorbic Acid 500 mg Chewable Tablet PO SCH (08:16)
[2020-06-08] MEDS: Ferrous Sulfate 325 MG TAB PO SCH (08:16)
[2020-06-08] MEDS: Furosemide 40 MG TAB PO SCH (08:17)
[2020-06-08] MEDS: Sodium Chloride 0.65% Nasal 44 ML BOT EA NARE SCH ×2 (08:17→21:10)
[2020-06-08] MEDS: Apixaban 2.5 MG TAB PO SCH ×2 (08:17→21:13)
[2020-06-08] MEDS: Mometasone/Formoterol 200/5 60 PUFF INH SCH ×2 (08:17→21:10)
[2020-06-08] MEDS: Magnesium Oxide 400 MG TAB PO SCH (08:17)
[2020-06-08] MEDS: CALCIUM LACTATE PO SCH (08:18)
[2020-06-08] MEDS: Meclizine HCl 25 MG TAB PO PRN (11:33)
--- NOTE | 2020-06-08 13:37 | PRG ---
DATE OF SERVICE: SUBJECTIVE: Mr. Marc is resting in bed. He apparently is having complaints of lightheadedness and dizziness. Every time he stands up, I had ordered LIBERTY hose for him, but has not been applied. I discussed with nursing and they are going to get it on right now. I advised them that it should be on in the morning and off at bedtime. I did call his , return her call and left a message. OBJECTIVE: VITAL SIGNS: He is afebrile. Heart rate 64, respirations 20, oxygen saturation 99% on 2 L, blood pressure 154/65. CARDIOVASCULAR SYSTEM: S1, S2 plus. RESPIRATORY SYSTEM: Normal vesicular breath sounds. ABDOMEN: Soft, nontender. Bowel sounds heard in all quadrants. EXTREMITIES: Without cyanosis or clubbing. CENTRAL NERVOUS SYSTEM: Generalized weakness. IMPRESSION: 1. Orthostatic hypotension. We will reduce Lasix to 40 once daily. 2. Heart healthy ADA diet. 3. LIBERTY hose on in the morning and off at bedtime. 4. Accu-Chek with sliding scale coverage. 5. DVT prophylaxis-he is on Eliquis. 6. Decubitus precaution. 7. Stress ulcer prophylaxis. 8. Routine laboratory values. 9. Therapy. Job ID: [id number]
[2020-06-08] MEDS: Citalopram 20 MG TAB PO SCH (21:12)
[2020-06-08] MEDS: Tamsulosin HCl 0.4 MG CAP PO SCH (21:12)
[2020-06-08] MEDS: Atorvastatin Calcium 40 MG TAB PO SCH (21:12)
[2020-06-08] MEDS: Amlodipine 5 MG TAB PO SCH (21:13)
[2020-06-09 05:21] LABS: #Basophils 0.1 thou/uL (0.0-0.2); #Eosinphils 0.4 thou/uL (0.0-0.7); #Lymphocytes 1.5 thou/uL (1.20-3.40); #Monocytes 0.9 thou/uL (0.11-0.59); %Basophils 1.1 % (0.0-1.0); %Eosinophils 5.4 % (0.0-10.0); %Lymphocytes 21.6 % (21.0-51.0); %Monocytes 12.8 % (0.0-10.0); %Neutrophils 59.1 % (42.0-75.0); Hemoglobin 8.2 g/dL (14.0-18.0); Mean Corpuscular HGB CONC 29.9 g/dL (32.0-36.0); Mean Corpuscular Hemoglobin 29.6 pg (27.0-31.0); Mean Corpuscular Volume 99.2 fL (78.0-98.0); Mean Platelet Volume 8.7 fL (7.4-10.4); Platelet Count 124 thou/uL (130-400); Red Blood Cell (RBC) Count 2.77 mill/uL (4.70-6.10); White Blood Cell (WBC) Count 6.8 thou/uL (4.8-10.8)
[2020-06-09 05:28] LABS: Anion Gap 14 mmol/L (10-20); BUN (Urea Nitrogen) 58 mg/dL (8.4-25.7); Calc. Creatinine Clearance 46 mL/min (70-130); Carbon Dioxide 30 mmol/L (23-31); Chloride 104 mmol/L (98-107); Estimated GFR-MDRD 32; Glucose 95 mg/dL (83-110); Potassium 3.8 mmol/L (3.5-5.1)
[2020-06-09 05:32] LABS: Sodium 144 mmol/L (136-145)
[2020-06-09] MEDS: Acetaminophen 325 MG TAB PO PRN ×3 (05:47→21:16)
[2020-06-09] MEDS: Levothyroxine Sodium 25 MCG TAB PO SCH (05:48)
[2020-06-09] MEDS: Levothyroxine Sodium 112 MCG TAB PO SCH (05:48)
[2020-06-09] MEDS: Ferrous Sulfate 325 MG TAB PO SCH (08:19)
[2020-06-09] MEDS: Apixaban 2.5 MG TAB PO SCH ×2 (08:20→21:16)
[2020-06-09] MEDS: Cholecalciferol 1,000 UNITS (25 MCG) TAB PO SCH (08:21)
[2020-06-09] MEDS: Carvedilol 25 MG TAB PO SCH ×2 (08:21→16:51)
[2020-06-09] MEDS: Furosemide 40 MG TAB PO SCH (08:21)
[2020-06-09] MEDS: Ubidecarenone 50 MG CAP PO SCH (08:22)
[2020-06-09] MEDS: Meclizine HCl 25 MG TAB PO PRN (08:22)
[2020-06-09] MEDS: Dofetilide 0.125 MG CAP PO SCH ×2 (08:23→21:15)
[2020-06-09] MEDS: Ascorbic Acid 500 mg Chewable Tablet PO SCH (08:23)
[2020-06-09] MEDS: Allopurinol 100 MG TAB PO SCH (08:23)
[2020-06-09] MEDS: Clopidogrel Bisulfate 75 MG TAB PO SCH (08:25)
[2020-06-09] MEDS: Calcium Acetate 667 MG CAP PO SCH ×3 (08:25→16:51)
[2020-06-09] MEDS: Magnesium Oxide 400 MG TAB PO SCH (08:26)
[2020-06-09] MEDS: Sodium Chloride 0.65% Nasal 44 ML BOT EA NARE SCH ×2 (08:26→21:14)
[2020-06-09] MEDS: CALCIUM LACTATE PO SCH (08:26)
[2020-06-09] MEDS: Mometasone/Formoterol 200/5 60 PUFF INH SCH ×2 (08:27→21:14)
[2020-06-09] MEDS: hydrALAZINE 25 MG TAB PO SCH ×3 (08:28→21:16)
--- NOTE | 2020-06-09 09:01 | PRG ---
DATE OF SERVICE: 06/09/2020 SUBJECTIVE: Mr. Marc is resting in bed. He has his LIBERTY hose on. Plan is for him to work with therapy through the weekend and anticipate discharging home on Friday. Both him and his family agreed, per therapist. His Lasix was reduced to once daily and hoping that along with the LIBERTY hose may help with some of his orthostasis. OBJECTIVE: VITAL SIGNS: He is afebrile. Heart rate 60, respirations 18, oxygen saturation 97% on 2L. Blood pressure from last night is 128/60. CARDIOVASCULAR SYSTEM: S1 and S2 plus. RESPIRATORY SYSTEM: Normal vesicular breath sounds. ABDOMEN: Soft, nontender, obese, bowel sounds heard in all quadrants. EXTREMITIES: Without cyanosis or clubbing. CENTRAL NERVOUS SYSTEM: Grossly nonfocal. LABORATORY DATA: Laboratory values done this morning shows a white count of 6.8, H and H are 8.2 and 27.2. Sodium 144, potassium 3.8, BUN and creatinine are 58 and 2.02. Blood sugars are good at 120, 166, 118 and 147. IMPRESSION: 1. Diabetes mellitus, type 2. 2. Hypertension. 3. Dyslipidemia. 4. Hypothyroidism. 5. Coronary artery disease status post stent placement. 6. Chronic diastolic congestive heart failure. 7. Atrial fibrillation. 8. Obstructive sleep apnea. 9. Chronic hypoxemic respiratory failure and chronic obstructive pulmonary disease. 10. Deconditioning. PLAN: 1. Continue current medications. 2. 1800-calorie heart-healthy ADA diet. 3. Accu-Cheks with sliding scale coverage. 4. DVT prophylaxis - he is on Eliquis. 5. Decubitus precautions. 6. Stress ulcer prophylaxis seven. 7. LIBERTY hose for orthostasis. 8. Monitor cardiovascular status since his Lasix was decreased to once daily. 9. Dr. Bowens on-call this weekend. Job ID: [id number]
[2020-06-09] MEDS: Amlodipine 5 MG TAB PO SCH (21:15)
[2020-06-09] MEDS: Atorvastatin Calcium 40 MG TAB PO SCH (21:16)
[2020-06-09] MEDS: Citalopram 20 MG TAB PO SCH (21:16)
[2020-06-09] MEDS: Tamsulosin HCl 0.4 MG CAP PO SCH (21:16)
[2020-06-10] MEDS: Levothyroxine Sodium 25 MCG TAB PO SCH (05:11)
[2020-06-10] MEDS: Acetaminophen 325 MG TAB PO PRN ×3 (05:11→18:41)
[2020-06-10] MEDS: Levothyroxine Sodium 112 MCG TAB PO SCH (05:11)
[2020-06-10] MEDS: Mometasone/Formoterol 200/5 60 PUFF INH SCH ×2 (08:04→20:42)
[2020-06-10] MEDS: Sodium Chloride 0.65% Nasal 44 ML BOT EA NARE SCH ×2 (08:05→20:42)
[2020-06-10] MEDS: Ferrous Sulfate 325 MG TAB PO SCH (08:06)
[2020-06-10] MEDS: Calcium Acetate 667 MG CAP PO SCH ×3 (08:06→16:48)
[2020-06-10] MEDS: Carvedilol 25 MG TAB PO SCH ×2 (08:06→16:49)
[2020-06-10] MEDS: Clopidogrel Bisulfate 75 MG TAB PO SCH (08:07)
[2020-06-10] MEDS: hydrALAZINE 25 MG TAB PO SCH ×3 (08:07→20:44)
[2020-06-10] MEDS: Apixaban 2.5 MG TAB PO SCH ×2 (08:07→20:44)
[2020-06-10] MEDS: Allopurinol 100 MG TAB PO SCH (08:07)
[2020-06-10] MEDS: Ascorbic Acid 500 mg Chewable Tablet PO SCH (08:07)
[2020-06-10] MEDS: Furosemide 40 MG TAB PO SCH (08:07)
[2020-06-10] MEDS: Dofetilide 0.125 MG CAP PO SCH ×2 (08:07→20:44)
[2020-06-10] MEDS: Cholecalciferol 1,000 UNITS (25 MCG) TAB PO SCH (08:07)
[2020-06-10] MEDS: Magnesium Oxide 400 MG TAB PO SCH (08:08)
[2020-06-10] MEDS: Ubidecarenone 50 MG CAP PO SCH (08:08)
[2020-06-10] MEDS: CALCIUM LACTATE PO SCH (08:08)
[2020-06-10] MEDS: Atorvastatin Calcium 40 MG TAB PO SCH (20:43)
[2020-06-10] MEDS: Amlodipine 5 MG TAB PO SCH (20:44)
[2020-06-10] MEDS: Tamsulosin HCl 0.4 MG CAP PO SCH (20:44)
[2020-06-10] MEDS: Citalopram 20 MG TAB PO SCH (20:44)
[2020-06-11] MEDS: Acetaminophen 325 MG TAB PO PRN ×3 (05:05→20:58)
[2020-06-11] MEDS: Levothyroxine Sodium 112 MCG TAB PO SCH (05:06)
[2020-06-11] MEDS: Levothyroxine Sodium 25 MCG TAB PO SCH (05:06)
--- NOTE | 2020-06-11 07:03 | PRG ---
DATE OF SERVICE: 06/11/2020 SUBJECTIVE: The patient is resting in bed. He has had a good day today with no dizziness or lightheadedness, wearing his support hose, and has been up out of the bed. OBJECTIVE: VITAL SIGNS: Shows blood pressure is 137/62, pulse 64, respirations 18, O2 saturations 96% on 2 L. LUNGS: Clear. CARDIAC: Shows irregular rhythm. ABDOMEN: Soft and nontender. SKIN AND EXTREMITIES: Show no edema, clubbing, or cyanosis. ASSESSMENT: 1. Stable diabetes, controlled to goal. 2. Hypertension, stable. 3. Hypothyroidism, stable. 4. Coronary artery disease, asymptomatic, status post angioplasty and stent. 5. Atrial fibrillation with rate controlled and anticoagulation. 6. Chronic obstructive pulmonary disease with hypoxemia, stable on supplemental oxygen. PLAN: 1. Continue PT, OT. Continue Accu-Cheks to monitor, titrate, and control diabetes. 2. Continue rate control and anticoagulation of atrial fibrillation. 3. Continue stress ulcer prophylaxis. Job ID: [id number]
[2020-06-11] MEDS: Calcium Acetate 667 MG CAP PO SCH ×3 (08:27→16:54)
[2020-06-11] MEDS: Carvedilol 25 MG TAB PO SCH ×2 (08:28→16:54)
[2020-06-11] MEDS: Ferrous Sulfate 325 MG TAB PO SCH (08:28)
[2020-06-11] MEDS: Allopurinol 100 MG TAB PO SCH (08:28)
[2020-06-11] MEDS: Apixaban 2.5 MG TAB PO SCH ×2 (08:28→20:58)
[2020-06-11] MEDS: hydrALAZINE 25 MG TAB PO SCH ×3 (08:29→20:58)
[2020-06-11] MEDS: Dofetilide 0.125 MG CAP PO SCH ×2 (08:29→20:57)
[2020-06-11] MEDS: Magnesium Oxide 400 MG TAB PO SCH (08:29)
[2020-06-11] MEDS: Ascorbic Acid 500 mg Chewable Tablet PO SCH (08:29)
[2020-06-11] MEDS: Clopidogrel Bisulfate 75 MG TAB PO SCH (08:29)
[2020-06-11] MEDS: Furosemide 40 MG TAB PO SCH (08:29)
[2020-06-11] MEDS: Cholecalciferol 1,000 UNITS (25 MCG) TAB PO SCH (08:29)
[2020-06-11] MEDS: Mometasone/Formoterol 200/5 60 PUFF INH SCH ×2 (08:30→20:56)
[2020-06-11] MEDS: Ubidecarenone 50 MG CAP PO SCH (08:31)
[2020-06-11] MEDS: Sodium Chloride 0.65% Nasal 44 ML BOT EA NARE SCH ×2 (08:31→20:56)
[2020-06-11] MEDS: CALCIUM LACTATE PO SCH (08:31)
[2020-06-11] MEDS: Atorvastatin Calcium 40 MG TAB PO SCH (20:57)
[2020-06-11] MEDS: Citalopram 20 MG TAB PO SCH (20:57)
[2020-06-11] MEDS: Tamsulosin HCl 0.4 MG CAP PO SCH (20:57)
[2020-06-11] MEDS: Amlodipine 5 MG TAB PO SCH (20:58)
[2020-06-12] MEDS: Acetaminophen 325 MG TAB PO PRN ×3 (05:32→20:55)
[2020-06-12] MEDS: Levothyroxine Sodium 112 MCG TAB PO SCH (05:32)
[2020-06-12] MEDS: Levothyroxine Sodium 25 MCG TAB PO SCH (05:33)
[2020-06-12] MEDS: Mometasone/Formoterol 200/5 60 PUFF INH SCH ×2 (08:42→20:53)
[2020-06-12] MEDS: Sodium Chloride 0.65% Nasal 44 ML BOT EA NARE SCH ×2 (08:42→20:53)
[2020-06-12] MEDS: Carvedilol 25 MG TAB PO SCH ×2 (08:43→16:04)
[2020-06-12] MEDS: Apixaban 2.5 MG TAB PO SCH ×2 (08:43→20:56)
[2020-06-12] MEDS: Ferrous Sulfate 325 MG TAB PO SCH (08:43)
[2020-06-12] MEDS: Dofetilide 0.125 MG CAP PO SCH ×2 (08:43→20:55)
[2020-06-12] MEDS: Calcium Acetate 667 MG CAP PO SCH ×3 (08:43→16:04)
[2020-06-12] MEDS: Ascorbic Acid 500 mg Chewable Tablet PO SCH (08:43)
[2020-06-12] MEDS: Allopurinol 100 MG TAB PO SCH (08:43)
[2020-06-12] MEDS: Ubidecarenone 50 MG CAP PO SCH (08:43)
[2020-06-12] MEDS: Cholecalciferol 1,000 UNITS (25 MCG) TAB PO SCH (08:44)
[2020-06-12] MEDS: CALCIUM LACTATE PO SCH (08:44)
[2020-06-12] MEDS: Furosemide 40 MG TAB PO SCH (08:44)
[2020-06-12] MEDS: Clopidogrel Bisulfate 75 MG TAB PO SCH (08:44)
[2020-06-12] MEDS: Magnesium Oxide 400 MG TAB PO SCH (08:44)
[2020-06-12] MEDS: hydrALAZINE 25 MG TAB PO SCH ×3 (08:44→20:56)
--- NOTE | 2020-06-12 13:22 | PRG ---
DATE OF SERVICE: 06/12/2020 SUBJECTIVE: Mr. Marc is doing the same. His dizziness has pretty much resolved with LIBERTY hose and cutting down on his Lasix. He continues to have on and off pain in his left ankle, again reinforced the importance of him wearing his boots [facility]. Anticipated discharge is tomorrow. He is tolerating his Celexa that is really the only new medication. I will check with him and see what pharmacy . We will also check with him about home health. OBJECTIVE: VITAL SIGNS: He is afebrile. Heart rate is 59, respirations 18, oxygen saturation 96% on 2 L, and blood pressure 141/64. CARDIOVASCULAR: S1-S2 plus. RESPIRATORY: Normal vesicular breath sounds. ABDOMEN: Soft, nontender, obese. Bowel sounds heard in all quadrants. EXTREMITIES: Without cyanosis or clubbing. Chronic venous insufficiency. CENTRAL NERVOUS SYSTEM: Improving deconditioning. IMPRESSION: 1. Chronic obstructive pulmonary disease. 2. Coronary artery disease, status post recent stent placement. 3. Obstructive sleep apnea. 4. Diabetes mellitus, type 2. 5. Hypertension. 6. Dyslipidemia. 7. Atrial fibrillation. 8. Obesity. PLAN: 1. Continue current medications. 2. Heart healthy diet. 3. Monitor blood pressure. 4. LIBERTY hose. 5. DVT prophylaxis-he is on Eliquis. 6. Decubitus precaution. 7. Stress ulcer prophylaxis. 8. The patient apparently still needs to learn how to get over the steps he has a few steps at home, so we see he is ready to be discharged tomorrow or if he needs to work with therapy a couple more times. Job ID: [id number]
[2020-06-12] MEDS: Atorvastatin Calcium 40 MG TAB PO SCH (20:55)
[2020-06-12] MEDS: Citalopram 20 MG TAB PO SCH (20:55)
[2020-06-12] MEDS: Tamsulosin HCl 0.4 MG CAP PO SCH (20:55)
[2020-06-12] MEDS: Amlodipine 5 MG TAB PO SCH (20:56)
[2020-06-13 05:22] LABS: Hemoglobin 8.3 g/dL (14.0-18.0); Platelet Count 91 thou/uL (130-400)
[2020-06-13] MEDS: Levothyroxine Sodium 25 MCG TAB PO SCH (06:04)
[2020-06-13] MEDS: Levothyroxine Sodium 112 MCG TAB PO SCH (06:04)
[2020-06-13] MEDS: Acetaminophen 325 MG TAB PO PRN (06:04)
[2020-06-13] MEDS: Mometasone/Formoterol 200/5 60 PUFF INH SCH (08:01)
[2020-06-13] MEDS: Sodium Chloride 0.65% Nasal 44 ML BOT EA NARE SCH (08:02)
[2020-06-13] MEDS: Dofetilide 0.125 MG CAP PO SCH (08:03)
[2020-06-13] MEDS: hydrALAZINE 25 MG TAB PO SCH (08:03)
[2020-06-13] MEDS: Calcium Acetate 667 MG CAP PO SCH ×2 (08:04→11:34)
[2020-06-13] MEDS: Cholecalciferol 1,000 UNITS (25 MCG) TAB PO SCH (08:04)
[2020-06-13] MEDS: Furosemide 40 MG TAB PO SCH (08:04)
[2020-06-13] MEDS: Ubidecarenone 50 MG CAP PO SCH (08:04)
[2020-06-13] MEDS: Magnesium Oxide 400 MG TAB PO SCH (08:04)
[2020-06-13] MEDS: Ferrous Sulfate 325 MG TAB PO SCH (08:04)
[2020-06-13] MEDS: Clopidogrel Bisulfate 75 MG TAB PO SCH (08:05)
[2020-06-13] MEDS: Carvedilol 25 MG TAB PO SCH (08:05)
[2020-06-13] MEDS: Apixaban 2.5 MG TAB PO SCH (08:05)
[2020-06-13] MEDS: Ascorbic Acid 500 mg Chewable Tablet PO SCH (08:05)
[2020-06-13] MEDS: Allopurinol 100 MG TAB PO SCH (08:05)
[2020-06-13] MEDS: CALCIUM LACTATE PO SCH (08:06)
[2020-06-13 08:42] VITALS: TEMP 98
--- NOTE | 2020-06-13 10:02 | PRG ---
DATE OF SERVICE: 06/11/2020 SUBJECTIVE: The patient feels well, sitting up in the chair, ready to do more therapy pain in his left ankle, and requesting when he can go home. OBJECTIVE: VITAL SIGNS: Show blood pressure is 147/66, pulse 64, temperature 97, O2 saturations 97% on 2 L. LUNGS: Clear. CARDIAC: Shows regular rhythm. ABDOMEN: Soft and nontender. SKIN/EXTREMITIES: Display no edema, clubbing, or cyanosis. NEUROLOGICAL: Intact Both legs show some bilateral edema. ASSESSMENT: 1. Stable chronic obstructive pulmonary disease. 2. Stable coronary artery disease. 3. Stable obstructive sleep apnea. 4. Improving deconditioning. 5. Stable hypertension. PLAN: 1. Continue PT, OT. 2. Continue DVT and stress ulcer prophylaxis. 3. Dr[facility]. Job ID: [id number]
[2020-06-13 13:07] VITALS: BP 125/58
--- NOTE | 2020-06-13 14:31 | DIS ---
DATE OF ADMISSION: 05/25/2020 DATE OF DISCHARGE: 06/13/2020 PRINCIPAL DIAGNOSIS: Coronary artery disease, status post recent stent to right coronary artery. SECONDARY DIAGNOSES: 1. Atrial fibrillation. 2. Obstructive sleep apnea. 3. Chronic hypoxemic respiratory failure. 4. Chronic obstructive pulmonary disease. 5. Hypertension. 6. Dyslipidemia. 7. Hypothyroidism. 8. Deconditioning. COMPLICATIONS: None. ADVERSE REACTIONS: None. PROCEDURES: None. CONSULTATIONS: Physical Therapy and Occupational Therapy. HOSPITAL COURSE: The patient was admitted after undergoing a stent to his right coronary artery. He was transferred here for therapy. He complained of lightheadedness and dizziness and also left ankle pain. We found out later that the [facility] had given him orthotic boots for his left foot, but he did not bring them in from home. I advised him to have his bring it in. He initially was felt to have more an inner ear problem and was started on meclizine for his lightheadedness, this really did not seem to help. Then, we felt that it may be orthostasis, so reduced his Lasix to once daily and also started him on knee-high LIBERTY hose and he started doing better. He still did not do a whole lot with therapy, but they felt that he was safe enough to go home. He apparently did work on climbing couple of stairs today because he has a couple at home. Apparently, his last date of insurance coverage is today and the patient wants to be discharged today. Nursing and Therapy are in agreement. Home health is being arranged. The patient apparently has used [facility] in the past. Apparently, his PCP from the [facility] is going to manage home health. He was started on Celexa due to some depressive symptoms, but I noticed that he is on Tikosyn and there is major interaction between the two, so I have advised the patient that I am not sending this prescription in and he may need to start on a different antidepressant through [facility]. I did not want to start him on something new as he is going home today. PHYSICAL EXAMINATION: VITAL SIGNS: On the day of discharge, he is afebrile. Heart rate 67, respirations 18, oxygen saturation 98% on 2 L, blood pressure 147/65. CARDIOVASCULAR: S1 and S2 plus. RESPIRATORY: Normal vesicular breath sounds. ABDOMEN: Soft, obese, nontender. Bowel sounds heard in all quadrants. EXTREMITIES: Without cyanosis or clubbing. Trace edema. CENTRAL NERVOUS SYSTEM: Improving deconditioning. DISCHARGE MEDICATIONS: 1. Tylenol 650 p.o. q.6 p.r.n. 2. Ventolin inhaler two puffs q.i.d. p.r.n. 3. Allopurinol 300 mg daily. 4. Norvasc 10 mg daily. 5. Eliquis 2.5 mg b.i.d. 6. Vitamin C 500 mg daily. 7. Lipitor 80 mg daily. 8. PhosLo 667 mg t.i.d. 9. Carvedilol 25 mg b.i.d. 10. Vitamin D3, 2000 international units daily. 11. Plavix 75 mg daily. 12. CoQ10, 100 mg daily. 13. Tikosyn 0.125 mg b.i.d. 14. Iron sulfate 325 daily. 15. Lasix 40 mg b.i.d. 16. Hydralazine 75 mg t.i.d. 17. Imdur ER 120 mg daily. 18. Levoxyl 137 mcg daily. 19. Mag-Ox 400 mg daily. 20. Dulera inhaler two puffs b.i.d. or similar. 21. Calcium lactate 1300 mg daily. 22. Pantoprazole 40 mg b.i.d. DISCHARGE INSTRUCTIONS: 1800 calorie heart healthy ADA diet. Activity as tolerated. Outpatient followup with his PCP in 7 to 10 days. He is to call us with any questions or concerns. He does not need any DME. His Lasix was changed back to twice a day as once he goes home obviously his diet will not have the restrictions that he had here. I advised him that if he starts getting more lightheaded or dizzy especially with activity, then to cut back to once a day. For full details, please see chart. Total time spent on this discharge 37 minutes. Job ID: [id number]
== END 2020-06-13 14:10 | disposition home health service (06) | DRG 280 ==
LOC: NAV ACUTE 18:24
PROVIDERS: ADMIT Internal Medicine; ATTEND Internal Medicine
DX: I13.0 Hypertensive heart and chronic kidney disease with heart failure and stage 1 through stage 4 chronic kidney disease, or unspecified chronic kidney disease (principal); I50.33 Acute on chronic diastolic (congestive) heart failure; I21.4 Non-ST elevation (NSTEMI) myocardial infarction; J18.9 Pneumonia, unspecified organism; J96.11 Chronic respiratory failure with hypoxia; I48.92 Unspecified atrial flutter; N18.4 Chronic kidney disease, stage 4 (severe); I25.10 Atherosclerotic heart disease of native coronary artery without angina pectoris; G47.33 Obstructive sleep apnea (adult) (pediatric); G25.81 Restless legs syndrome; E11.22 Type 2 diabetes mellitus with diabetic chronic kidney disease; E78.5 Hyperlipidemia, unspecified; E03.9 Hypothyroidism, unspecified; I87.2 Venous insufficiency (chronic) (peripheral); M19.90 Unspecified osteoarthritis, unspecified site; J44.9 Chronic obstructive pulmonary disease, unspecified; F41.9 Anxiety disorder, unspecified; F32.9 Major depressive disorder, single episode, unspecified; N40.0 Benign prostatic hyperplasia without lower urinary tract symptoms; R53.1 Weakness; R53.81 Other malaise; E66.9 Obesity, unspecified; I48.91 Unspecified atrial fibrillation; M25.572 Pain in left ankle and joints of left foot; M79.672 Pain in left foot; I95.1 Orthostatic hypotension; Z95.5 Presence of coronary angioplasty implant and graft; Z79.01 Long term (current) use of anticoagulants; Z98.890 Other specified postprocedural states; Z88.5 Allergy status to narcotic agent; Z79.02 Long term (current) use of antithrombotics/antiplatelets; I25.2 Old myocardial infarction; Z68.38 Body mass index [BMI] 38.0-38.9, adult
CPT/HCPCS: 36415; 36416; 80048; 80053; 82565; 84550; 85014; 85018; 85025; 85049; 94664; J8499

== ENCOUNTER 2020-09-16 13:57 | Inpatient (IN) | payer MEDICARE ==
[2020-09-16] MEDS ORDERED: Non-Formulary Item 1 EACH (Albuterol Sulfate [Proair Digihaler] 90 MCG Aer.Pw.Bas) PO PRN (15:13)
[2020-09-16] MEDS ORDERED: Bisacodyl 5 MG TAB PO PRN (15:13)
[2020-09-16] MEDS ORDERED: Carvedilol 3.125 MG TAB PO SCH (17:00)
[2020-09-16] MEDS: Dronedarone HCl 400 MG TAB PO SCH (17:33)
[2020-09-16] MEDS: Mometasone/Formoterol 60 PUFF AER INH SCH (20:27)
[2020-09-16] MEDS: Calcium Acetate 667 MG CAP PO SCH (20:28)
[2020-09-16] MEDS: hydrALAZINE 25 MG TAB PO SCH (20:28)
[2020-09-16] MEDS: Atorvastatin Calcium 40 MG TAB PO SCH (20:28)
[2020-09-16] MEDS: rOPINIRole HCl 1 MG TAB PO SCH (20:29)
[2020-09-16] MEDS: Tamsulosin HCl 0.4 MG CAP PO SCH (20:29)
[2020-09-16] MEDS: Senokot S 8.6-50 MG TAB PO SCH (20:29)
[2020-09-16] MEDS: Apixaban 2.5 MG TAB PO SCH (20:29)
[2020-09-16] MEDS: Acetaminophen 325 MG TAB PO SCH (20:29)
[2020-09-16] MEDS ORDERED: Dextrose 50% Abboject 50 ML SYRINGE IVP PRN (21:00)
[2020-09-16] MEDS ORDERED: Dextrose 5% in Water 1,000 ML IV PRN (21:00)
[2020-09-16] MEDS: HumaLOG 300 UNITS/3 ML VIAL SC PRN (21:01)
[2020-09-17 05:40] LABS: ALT (SGPT) 23 U/L (8-55); AST (SGOT) 25 U/L (5-34); Albumin 2.9 g/dL (3.4-4.8); Alkaline Phosphatase 111 U/L (40-110); BUN (Urea Nitrogen) 110 mg/dL (8.4-25.7); Bilirubin, Total 0.4 mg/dL (0.2-1.2); Calc. Creatinine Clearance 27 mL/min (70-130); Calcium 7.7 mg/dL (7.8-10.44); Globulin 1.9 g/dL (2.4-3.5); Glucose 199 mg/dL (83-110); Protein, Total 4.8 g/dL (5.8-8.1)
[2020-09-17 05:44] LABS: Chloride 95 mmol/L (98-107); Potassium 3.5 mmol/L (3.5-5.1); Sodium 145 mmol/L (136-145)
[2020-09-17] MEDS: Levothyroxine Sodium 112 MCG TAB PO SCH (05:58)
[2020-09-17] MEDS: Levothyroxine Sodium 25 MCG TAB PO SCH (05:58)
[2020-09-17] MEDS: HumaLOG 300 UNITS/3 ML VIAL SC PRN ×4 (05:59→20:59)
[2020-09-17 06:43] LABS: Carbon Dioxide 33 mmol/L (23-31)
[2020-09-17 06:46] LABS: Anion Gap 19 mmol/L (10-20)
[2020-09-17] MEDS ORDERED: predniSONE 20 MG TAB PO SCH (08:00)
--- NOTE | 2020-09-17 08:20 | HP ---
This is a patient of Dr. Raji Brito. HISTORY OF PRESENT ILLNESS: The patient is an 80-year-old male patient at the [facility] with a long history of coronary artery disease and diastolic heart failure with recent non ST ID and angioplasty several months ago, who has presented to [facility] twice since discharge in the last month with exacerbation of his congestive heart failure. Apparently, this may have been contributed by confusion about his diuretic. He states that he was only on 40 mg of furosemide at home, but during the hospitalization here he has been on 80 mg twice daily and has had prompt improvement in his orthopnea, paroxysmal nocturnal dyspnea and edema. He does have obstructive sleep apnea also and wears a CPAP at night and is on chronic 2 L oxygen at home from his underlying concomitant COPD. He has contributing factors of hypertension and hyperlipidemia, but has been unable to tolerate statins. He also has morbid obesity and states that he is mainly walking just from the bathroom to the bed and back with a walker since his last admission to [facility] for therapy. However, in the hospital now he is bedridden and has not moved at all. He has denied any fever, chills, or cough. He does have a history of type 2 diabetes, but apparently this is well controlled when he is off steroids and on diet with normal hemoglobin A1c on admission last month. However, now he is on oral steroids for some component of his COPD exacerbation and has significant hyperglycemia control with sliding scale. He has been followed at the [facility], but also had been followed by his calker, Dr. Ramirez Brice. He has allergies to all KARRIE inhibitors, rosiglitazone, simvastatin, niacin, ezetimibe. MEDICATIONS ON ADMISSION TO THE HOSPITAL: Included: 1. Levothyroxine 137 mcg daily. 2. Tamsulosin 0.4 nightly. 3. Allopurinol 300 daily. 4. Albuterol sulfate inhaler 2 puffs every four as needed. 5. Amlodipine 10 mg nightly. 6. Budesonide 2 puffs twice daily. 7. Carvedilol 6.25 twice daily. 8. Furosemide 40 mg daily as mentioned above. 9. Isosorbide 60 mg daily. 10. Pantoprazole 40 mg twice daily. 11. Flexeril 10 mg twice daily. 12. Lorazepam 1 mg as needed. 13. Losartan 100 mg daily. 14. Ropinirole 2 mg nightly. On admission here from [facility], he is hydralazine 50 mg 3 times daily with no amlodipine. He also was on apixaban 2.5 mg twice daily and dronedarone 400 mg twice daily. The patient states that he was previously placed on that, but there is question whether he has been able to afford it and was compliant with it. He however is also tolerating atorvastatin at this time on transfer and is on increased dose of carvedilol 12.5 twice daily. He is continued on Plavix 75 daily, and his furosemide as mentioned above has been increased to 80 mg twice daily. He has also been placed on a sliding scale and he has had persistent hyperglycemia since admission and placement with IV and oral steroids. He also has had his eye amlodipine discontinued and hydralazine 50 mg 3 times daily started, isosorbide 60 mg daily has been continued, but levothyroxine has been increased to 137 mcg daily and he has been placed on Procardia 60 mg daily instead of the amlodipine also, because of [facility] substitution and finally he mentioned above has been on 40 mg of prednisone daily, but as he is having no wheezing on admission, this has been decreased to 20 mg daily and he is continued on his ropinirole 4 mg daily and tamsulosin 0.4 mg daily. PAST MEDICAL HISTORY: As mentioned above in the history of present illness. Positive for COPD with chronic hypoxemia, CAD, status post recent non ST ID and stent 1 month ago, obstructive sleep apnea on CPAP at night, diastolic heart failure, diabetes type 2, controlled apparently to goal on diet at home, but with exacerbation with steroid therapy, hypothyroidism with recent increase in thyroid supplementation, gastroesophageal reflux, hyperlipidemia, now tolerating atorvastatin, hypertension, controlled with multiple medications with mainly systolic hypertension, gout, asymptomatic on allopurinol, anxiety and depression, on no real treatment at this time. PAST SURGICAL HISTORY: Positive for left hip surgery in 2019. SOCIAL HISTORY: He lives with his . He is a nonsmoker, nondrinker. REVIEW OF SYSTEMS: HEENT: He denies headache, dizziness, change in vision or hearing, hoarseness or dysphagia. PULMONARY: He has shortness of breath on minimal exertion, but denies cough, sputum production, wheezing at this time. CARDIOVASCULAR: He has a history of recurrent edema markedly decreased at this time with no chest pain, palpitations, but does have 2-3 pillow orthopnea. GASTROINTESTINAL: Denies nausea, vomiting, diarrhea, constipation, or abdominal pain. GENITOURINARY: Denies dysuria, hematuria, nocturia. MUSCULOSKELETAL: Denies stiffness or swelling on joints or extremities. NEUROLOGIC: Denies localized numbness, weakness in joints or extremities. PHYSICAL EXAMINATION: GENERAL: The patient is an elderly obese white male, lying in bed, no distress, on oxygen. Oriented x3 and a good historian. VITAL SIGNS: Temperature 96.3, pulse 83, respirations 20, O2 sats 91% on 3 L, blood pressure 144/65. HEENT: Pupils are equal, round, and reactive to light and accommodation. Sclerae anicteric. Conjunctivae pale. Oral mucous membranes well hydrated. NECK: Supple. JVP is not elevated. LUNGS: Show decreased breath sounds in the bases, but with no rales or rhonchi. CARDIAC: Showed regular rhythm. ABDOMEN: Obese, nontender. SKIN: Extremities show trace edema. No clubbing, cyanosis. NEUROLOGIC: Shows no focal findings. LAB[place]ATORY [place]: [place] [address], hematocrit 24, hemoglobin 8.1. Sodium this morning is 145, potassium 3.5, chloride 95, BUN is 110, creatinine 3.05, glucose 199. Most recent BNP several weeks ago 653, albumin 2.9. White count 42930, hematocrit 24 hemoglobin 8.1. IMAGING: Most recent chest x-ray last week showing bilateral pulmonary infiltrates. ASSESSMENT: 1. An 80-year-old white male, history of diastolic heart failure, recent decompensation secondary to confusion about diuretic dose improvement with IV and now increased to oral furosemide 80 twice daily. 2. Ischemic cardiomyopathy with recent stents with no recent ischemia or myocardial infarction. 3. History of probable paroxysmal atrial fibrillation controlled with Multaq and anticoagulation with apixaban. Appears to be in sinus rhythm. We will obtain EKG. 4. Chronic kidney disease, stage 4 with recent exacerbation secondary to congestive heart failure. We will need to monitor closely on diuretic therapy and will need to reconsider angiotensin receptor blockade. 5. Significant hypertension on multiple medications with polypharmacy causing some of the confusion, but with significant systolic hypertension during this admission. Apparently, now greatly improved on medications. 6. Gout, controlled on allopurinol. 7. Type 2 diabetes exacerbation with steroid therapy, but only on sliding scale and will decrease prednisone to 20 mg in the hope of weaning off. 8. Obstructive sleep apnea, monitor continuous positive airway pressure. 9. Chronic obstructive pulmonary disease and chronic hypoxemia, possibly Pickwickian component with no bronchospasm at this time and we will continue to wean off steroids as this is not a chronic treatment and is causing exacerbation of his diabetes. 10. Dr. Rendon to return and assume care on Friday night. Job ID: [id number]
[2020-09-17] MEDS: Carvedilol 6.25 MG TAB PO SCH ×2 (08:28→17:26)
[2020-09-17] MEDS: Dronedarone HCl 400 MG TAB PO SCH ×2 (08:28→17:26)
[2020-09-17] MEDS: predniSONE 20 MG TAB PO SCH (08:29)
[2020-09-17] MEDS: Acetaminophen 325 MG TAB PO SCH ×2 (08:29→20:57)
[2020-09-17] MEDS: Allopurinol 100 MG TAB PO SCH (08:30)
[2020-09-17] MEDS: Apixaban 2.5 MG TAB PO SCH ×2 (08:31→20:58)
[2020-09-17] MEDS: Calcium Acetate 667 MG CAP PO SCH ×3 (08:31→20:57)
[2020-09-17] MEDS: Furosemide 20 MG TAB PO SCH ×2 (08:31→13:00)
[2020-09-17] MEDS: Clopidogrel Bisulfate 75 MG TAB PO SCH (08:31)
[2020-09-17] MEDS: Mometasone/Formoterol 60 PUFF AER INH SCH ×2 (08:32→20:52)
[2020-09-17] MEDS: hydrALAZINE 25 MG TAB PO SCH ×3 (08:32→20:57)
[2020-09-17] MEDS: NIFEdipine XL 30 MG TAB PO SCH (08:33)
[2020-09-17] MEDS: Senokot S 8.6-50 MG TAB PO SCH ×2 (08:34→21:06)
[2020-09-17] MEDS ORDERED: Aspirin 81 mg Enteric Coated Tablet PO SCH (09:00)
[2020-09-17] MEDS ORDERED: Amlodipine 5 MG TAB PO SCH (09:00)
--- NOTE | 2020-09-17 11:17 | RAD ---
PORTABLE CHEST: HISTORY: CHF. COMPARISON: 09/11/2020. FINDINGS/IMPRESSION: Cardiomegaly with vascular congestion. Bilateral effusions. There are hazy infiltrates bilaterally, slightly more pronounced in the left upper lung. This could represent edema and/or superimposed inflammatory changes. POS: AGW
[2020-09-17] MEDS: rOPINIRole HCl 1 MG TAB PO SCH (20:57)
[2020-09-17] MEDS: Atorvastatin Calcium 40 MG TAB PO SCH (20:58)
[2020-09-17] MEDS: Tamsulosin HCl 0.4 MG CAP PO SCH (20:58)
[2020-09-18] MEDS ORDERED: traMADol HCl 50 MG TAB PO SCH (02:45)
[2020-09-18] MEDS: Levothyroxine Sodium 25 MCG TAB PO SCH (05:43)
[2020-09-18] MEDS: Levothyroxine Sodium 112 MCG TAB PO SCH (05:43)
[2020-09-18 05:45] LABS: #Basophils 0.1 thou/uL (0.0-0.2); #Lymphocytes 0.8 thou/uL (1.20-3.40); #Monocytes 0.7 thou/uL (0.11-0.59); %Basophils 0.5 % (0.0-1.0); %Eosinophils 0.2 % (0.0-10.0); %Monocytes 5.1 % (0.0-10.0); %Neutrophils 88.2 % (42.0-75.0); Hemoglobin 7.8 g/dL (14.0-18.0); Mean Corpuscular HGB CONC 32.4 g/dL (32.0-36.0); Mean Corpuscular Hemoglobin 32.4 pg (27.0-31.0); Mean Platelet Volume 10.5 fL (7.4-10.4); Platelet Count 133 thou/uL (130-400); RBC Distribution Width 14.2 % (11.5-14.5); Red Blood Cell (RBC) Count 2.42 mill/uL (4.70-6.10); White Blood Cell (WBC) Count 13.6 thou/uL (4.8-10.8)
[2020-09-18 06:03] LABS: BUN (Urea Nitrogen) 110 mg/dL (8.4-25.7); Calc. Creatinine Clearance 27 mL/min (70-130); Calcium 7.7 mg/dL (7.8-10.44); Glucose 139 mg/dL (83-110)
[2020-09-18 06:24] LABS: Carbon Dioxide 34 mmol/L (23-31)
[2020-09-18 07:09] LABS: Anion Gap 20 mmol/L (10-20); Chloride 95 mmol/L (98-107); Potassium 3.8 mmol/L (3.5-5.1); Sodium 145 mmol/L (136-145)
--- NOTE | 2020-09-18 07:41 | PRG ---
DATE OF SERVICE: 09/17/[address] Raji Brito. SUBJECTIVE: The patient felt well last night, but was unable to tolerate his CPAP. He has had no dyspnea at rest, but still very weak and unable to maintain ADLs and is somewhat depressed about his prognosis and inability to care for himself. He denied any chest pain or shortness of breath or palpitations. He has been compliant with his increased dose of furosemide. OBJECTIVE: Shows, VITAL SIGNS: Temperature 96.8, pulse 78, respirations 20, O2 sats 97% on 3 L, blood pressure is 122/52. LUNGS: Show decreased breath sounds in the bases. No rales, rhonchi, or wheezes. CARDIAC: Displays regular rhythm. No gallops or murmurs. SKIN/EXTREMITIES: Show only trace edema. NEUROLOGICAL: Intact. ASSESSMENT: 1. Compensating diastolic heart failure, on furosemide 80 twice daily. 2. Chronic kidney disease, stage 4, recent exacerbation, now appears to be stable on increased diuretic. We will repeat BMP in the a.m. 3. Obstructive sleep apnea, inability to tolerate CPAP. 4. Paroxysmal atrial fibrillation, controlled, Multaq with anticoagulation with apixaban, now with apparent sinus rhythm, awaiting EKG results. 5. Severe deconditioning, awaiting PT/OT. 6. Type 2 diabetes, controlled on sliding scale with recent exacerbation with steroids decreased the steroid dose to 20 mg. 7. Chronic obstructive pulmonary disease, chronic hypoxemia, possibly Pickwickian component. 8. Significant hypertension with polypharmacy and previous confusion, but now apparently on medication. Family understands and with good control and we will continue. Dr. Brito to care for the patient from this time onwards. Job ID: [id number]
[2020-09-18] MEDS: Senokot S 8.6-50 MG TAB PO SCH ×2 (08:15→20:34)
[2020-09-18] MEDS: Mometasone/Formoterol 60 PUFF AER INH SCH ×2 (08:15→20:35)
[2020-09-18] MEDS: Allopurinol 100 MG TAB PO SCH (08:16)
[2020-09-18] MEDS: Clopidogrel Bisulfate 75 MG TAB PO SCH (08:16)
[2020-09-18] MEDS: Furosemide 20 MG TAB PO SCH (08:16)
[2020-09-18] MEDS: NIFEdipine XL 30 MG TAB PO SCH (08:16)
[2020-09-18] MEDS: Carvedilol 6.25 MG TAB PO SCH ×2 (08:17→17:47)
[2020-09-18] MEDS: Calcium Acetate 667 MG CAP PO SCH ×3 (08:17→20:34)
[2020-09-18] MEDS: Acetaminophen 325 MG TAB PO SCH ×2 (08:18→20:34)
[2020-09-18] MEDS: hydrALAZINE 25 MG TAB PO SCH ×3 (08:18→20:35)
[2020-09-18] MEDS: Apixaban 2.5 MG TAB PO SCH ×2 (08:18→20:33)
[2020-09-18] MEDS: predniSONE 20 MG TAB PO SCH (08:18)
[2020-09-18] MEDS: Dronedarone HCl 400 MG TAB PO SCH ×2 (08:19→17:47)
[2020-09-18] MEDS: Furosemide 80 MG TAB PO SCH (14:25)
--- NOTE | 2020-09-18 17:32 | PRG ---
DATE OF SERVICE: 09/18/2020 SUBJECTIVE: Mr. Marc is resting in bed. He apparently had significant pain early this morning and tramadol helped. He is resting in bed. He looks depressed. His is in the room. I am aware of Mr. Marc from his previous admissions and I had started him on an antidepressant in the last time, but I do not see it on his active medication list now. His also does not want him taking the aspirin as he is on Eliquis and Plavix. Plan is to start him on tramadol 50 mg q.6 p.r.n. for his pain and we will also start him on sertraline 50 mg daily for depressive symptoms. OBJECTIVE: VITAL SIGNS: He is afebrile. Heart rate is 83, respirations are 18, oxygen saturation is on 3 L blood pressure 146/63. CARDIOVASCULAR: S1-S2 plus. RESPIRATORY: Normal vesicular breath sounds with decreased air entry in the bases. Occasional rhonchi. ABDOMEN: Soft, obese, nontender. Bowel sounds heard in all quadrants. EXTREMITIES: Without cyanosis or clubbing. Trace edema. CENTRAL NERVOUS SYSTEM: Generalized weakness, otherwise nonfocal. LABORATORY VALUES: White count is 13.6, H and H 7.8 and 24.1. Sodium 145, potassium 3.8, BUN and creatinine are 110 and 3.09. When he was here the last time, his BUN and creatinine were 58 and 2.02 in May. IMPRESSION: 1. Acute on chronic diastolic congestive heart failure, improving. 2. Chronic kidney disease with gradual worsening, currently stage 4. 3. Obstructive sleep apnea. The patient refuses to use his CPAP, states he cannot tolerate it. 4. Paroxysmal atrial fibrillation. 5. Diabetes mellitus type 2. 6. Depression. 7. Hypertension. 8. Deconditioning. 9. Seems like chronic pain. PLAN: 1. Continue current medications. 2. 1800 calorie heart healthy ADA diet. 3. Accu-Cheks with sliding scale coverage. 4. DVT prophylaxis with PlexiPulses. 5. Decubitus precautions. 6. Stress ulcer prophylaxis. For DVT prophylaxis, he is already on Eliquis. 7. Start sertraline 50 mg daily making sure there is no interaction. 8. Tramadol 50 mg q.6 hours. 9. Titrate oxygen as tolerated. 10. Discussed with the patient and spouse in detail. All questions answered. Job ID: [id number]
[2020-09-18] MEDS: HumaLOG 300 UNITS/3 ML VIAL SC PRN (17:46)
[2020-09-18] MEDS: Tamsulosin HCl 0.4 MG CAP PO SCH (20:33)
[2020-09-18] MEDS: Atorvastatin Calcium 40 MG TAB PO SCH (20:34)
[2020-09-18] MEDS: rOPINIRole HCl 1 MG TAB PO SCH (20:34)
[2020-09-19] MEDS: Levothyroxine Sodium 112 MCG TAB PO SCH (05:14)
[2020-09-19] MEDS: Levothyroxine Sodium 25 MCG TAB PO SCH (05:14)
[2020-09-19] MEDS: predniSONE 20 MG TAB PO SCH (08:34)
[2020-09-19] MEDS: Calcium Acetate 667 MG CAP PO SCH ×3 (08:34→16:23)
[2020-09-19] MEDS: Dronedarone HCl 400 MG TAB PO SCH ×2 (08:34→16:24)
[2020-09-19] MEDS: Clopidogrel Bisulfate 75 MG TAB PO SCH (08:34)
[2020-09-19] MEDS: Acetaminophen 325 MG TAB PO SCH ×2 (08:35→20:34)
[2020-09-19] MEDS: Senokot S 8.6-50 MG TAB PO SCH ×2 (08:36→20:37)
[2020-09-19] MEDS: NIFEdipine XL 30 MG TAB PO SCH (08:36)
[2020-09-19] MEDS: Allopurinol 100 MG TAB PO SCH (08:37)
[2020-09-19] MEDS: Apixaban 2.5 MG TAB PO SCH ×2 (08:37→20:35)
[2020-09-19] MEDS: Carvedilol 6.25 MG TAB PO SCH ×2 (08:38→16:23)
[2020-09-19] MEDS: Furosemide 80 MG TAB PO SCH ×2 (08:38→14:25)
[2020-09-19] MEDS: hydrALAZINE 25 MG TAB PO SCH ×3 (08:38→20:35)
[2020-09-19] MEDS: Mometasone/Formoterol 60 PUFF AER INH SCH ×2 (08:41→20:35)
--- NOTE | 2020-09-19 13:46 | PRG ---
DATE OF SERVICE: 09/19/2020 SUBJECTIVE: Mr. Marc is resting in bed. He states that he just feels numb all over. He denies any chest pain or shortness of breath. He apparently ate a decent lunch. He has not had any complaints to nursing. He states that the tramadol is helping with his pain. OBJECTIVE: VITAL SIGNS: He is afebrile, heart rate 75, respirations 16, oxygen saturation 93% on 3 L, and blood pressure 122/55. CARDIOVASCULAR SYSTEM: S1 and S2 plus. RESPIRATORY SYSTEM: Normal vesicular breath sounds. ABDOMEN: Soft and nontender. Bowel sounds heard in all quadrants. Obese. EXTREMITIES: Without cyanosis or clubbing. Trace pedal edema. CENTRAL NERVOUS SYSTEM: Generalized weakness, otherwise nonfocal. IMPRESSION: 1. Resolving acute on chronic diastolic congestive heart failure. 2. Obstructive sleep apnea. The patient refuses to wear his continuous positive airway pressure. 3. Depression. 4. Chronic kidney disease, likely stage 4. 5. Paroxysmal atrial fibrillation. 6. Diabetes mellitus type 2. 7. Hypertension. 8. Deconditioning. PLAN: 1. Continue current medications, but simplify his blood pressure regimen. 2. Sertraline 50 mg daily for depression. 3. Heart-healthy diet. 4. Monitor respiratory status. 5. Titrate oxygen as tolerated. 6. Pain management. 7. Physical therapy. 8. Encouraged the patient. 9. Routine laboratory values. 10. No family at bedside. Job ID: [id number]
[2020-09-19] MEDS: HumaLOG 300 UNITS/3 ML VIAL SC PRN (16:22)
[2020-09-19] MEDS: Atorvastatin Calcium 40 MG TAB PO SCH (20:35)
[2020-09-19] MEDS: rOPINIRole HCl 1 MG TAB PO SCH (20:37)
[2020-09-19] MEDS: Tamsulosin HCl 0.4 MG CAP PO SCH (20:38)
[2020-09-20] MEDS: Levothyroxine Sodium 112 MCG TAB PO SCH (05:27)
[2020-09-20] MEDS: Levothyroxine Sodium 25 MCG TAB PO SCH (05:27)
[2020-09-20] MEDS: Carvedilol 6.25 MG TAB PO SCH ×2 (08:21→16:30)
[2020-09-20] MEDS: Calcium Acetate 667 MG CAP PO SCH ×3 (08:21→16:30)
[2020-09-20] MEDS: Dronedarone HCl 400 MG TAB PO SCH ×2 (08:23→16:30)
[2020-09-20] MEDS: predniSONE 20 MG TAB PO SCH (08:23)
[2020-09-20] MEDS: Acetaminophen 325 MG TAB PO SCH ×2 (08:24→20:46)
[2020-09-20] MEDS: Apixaban 2.5 MG TAB PO SCH ×2 (08:25→20:47)
[2020-09-20] MEDS: EPOETIN ALFA-EPBX (ESRD) 10,000 UNIT/ML VIAL SC SCH (08:25)
[2020-09-20] MEDS: Clopidogrel Bisulfate 75 MG TAB PO SCH (08:25)
[2020-09-20] MEDS: Allopurinol 100 MG TAB PO SCH (08:25)
[2020-09-20] MEDS: hydrALAZINE 25 MG TAB PO SCH (08:26)
[2020-09-20] MEDS: Furosemide 80 MG TAB PO SCH ×2 (08:26→14:30)
[2020-09-20] MEDS: Mometasone/Formoterol 60 PUFF AER INH SCH ×2 (08:27→20:45)
[2020-09-20] MEDS: Senokot S 8.6-50 MG TAB PO SCH ×2 (08:28→20:47)
--- NOTE | 2020-09-20 12:45 | PRG ---
DATE OF SERVICE: 09/20/2020 SUBJECTIVE: Mr. Marc still has a flat affect. He apparently refused JED. I had a long discussion with him and explained to him it is important for him to get the nutrition, so he can get strong and go home. He said he will try to eat. He apparently also refused some of his medications this morning. OBJECTIVE: VITAL SIGNS: He is afebrile, heart rate 68, respirations 20, oxygen saturation 94% on 3 L, blood pressure 117/50. CARDIOVASCULAR SYSTEM: S1 and S2 plus. RESPIRATORY SYSTEM: Normal vesicular breath sounds. ABDOMEN: Soft, nontender. Bowel sounds heard in all quadrants. Obese. EXTREMITIES: Without cyanosis, clubbing. CENTRAL NERVOUS SYSTEM: Generalized weakness, flat affect, otherwise nonfocal. IMPRESSION: 1. Resolving acute on chronic diastolic congestive heart failure. 2. Coronary artery disease. 3. Atrial fibrillation. 4. Hypothyroidism. 5. Hypertension. 6. Chronic obstructive pulmonary disease. 7. Obstructive sleep apnea. 8. Depression. 9. Deconditioning. PLAN: 1. Continue current medications, but discontinue hydralazine. 2. Encourage p.o. intake. 3. Heart-healthy diet. 4. The patient refusing CPAP, he is aware of the risks. 5. PT/OT. 6. DVT prophylaxis, he is on Eliquis. 7. Decubitus precautions. 8. Stress ulcer prophylaxis. 9. Routine laboratory values. Job ID: [id number]
[2020-09-20] MEDS: HumaLOG 300 UNITS/3 ML VIAL SC PRN (16:30)
[2020-09-20] MEDS: Atorvastatin Calcium 40 MG TAB PO SCH (20:45)
[2020-09-20] MEDS: rOPINIRole HCl 1 MG TAB PO SCH (20:47)
[2020-09-20] MEDS: Tamsulosin HCl 0.4 MG CAP PO SCH (20:47)
[2020-09-20] MEDS ORDERED: NIFEdipine XL 30 MG TAB PO SCH (21:00)
[2020-09-21] MEDS: Levothyroxine Sodium 112 MCG TAB PO SCH (05:31)
[2020-09-21] MEDS: Levothyroxine Sodium 25 MCG TAB PO SCH (05:31)
[2020-09-21] MEDS: Mometasone/Formoterol 60 PUFF AER INH SCH ×2 (08:17→20:22)
[2020-09-21] MEDS: Calcium Acetate 667 MG CAP PO SCH ×3 (08:18→17:23)
[2020-09-21] MEDS: Carvedilol 6.25 MG TAB PO SCH ×2 (08:18→17:23)
[2020-09-21] MEDS: Dronedarone HCl 400 MG TAB PO SCH ×2 (08:19→17:23)
[2020-09-21] MEDS: predniSONE 20 MG TAB PO SCH (08:19)
[2020-09-21] MEDS: Acetaminophen 325 MG TAB PO SCH ×2 (08:20→20:21)
[2020-09-21] MEDS: Clopidogrel Bisulfate 75 MG TAB PO SCH (08:21)
[2020-09-21] MEDS: Apixaban 2.5 MG TAB PO SCH ×2 (08:21→20:21)
[2020-09-21] MEDS: Allopurinol 100 MG TAB PO SCH (08:21)
[2020-09-21] MEDS: Furosemide 80 MG TAB PO SCH ×2 (08:21→14:17)
[2020-09-21] MEDS: Senokot S 8.6-50 MG TAB PO SCH ×2 (08:22→19:31)
[2020-09-21] MEDS: traMADol HCl 50 MG TAB PO PRN (08:22)
--- NOTE | 2020-09-21 14:01 | PRG ---
DATE OF SERVICE: 09/21/2020 SUBJECTIVE: Mr. Marc apparently did participate with therapy this morning, he is fatigued. He hardly ate any lunch. He states he is drinking his supplements. I informed him that he needs to eat better because he is not getting adequate calorie intake to improve enough to go home. On the positive note, his blood pressure is doing much better since discontinuing the hydralazine and changing the timing on his Procardia XL. He apparently is not sleeping well and we will add melatonin. I am also ordering a 3-day calorie count for him as well as routine labs tomorrow. I again encouraged him to eat more and then participate with therapy. I did discontinue his Procardia as well. No other concerns or questions. His spouse is in the room. Discussed with nursing. OBJECTIVE: VITAL SIGNS: He is afebrile, heart rate 84, respirations 16, oxygen saturation 96% on 3 L, and blood pressure 125/57. CARDIOVASCULAR SYSTEM: S1 and S2 plus. RESPIRATORY SYSTEM: Normal vesicular breath sounds with decreased air entry in the bases. ABDOMEN: Soft, obese, nontender. Bowel sounds heard in all quadrants. EXTREMITIES: Without cyanosis or clubbing. Trace edema. CENTRAL NERVOUS SYSTEM: Generalized weakness, otherwise nonfocal. LABORATORY DATA: Blood sugars are doing great at 114, 133, 163, 164, and 88. IMPRESSION: 1. Resolving acute on chronic diastolic congestive heart failure. 2. Atrial fibrillation. 3. Chronic obstructive pulmonary disease. 4. Obstructive sleep apnea. 5. Diabetes mellitus, type 2. 6. Depression and anxiety. 7. Deconditioning. PLAN: 1. Continue current medications. 2. Add melatonin for sleep. 3. Continue sertraline. 4. Three-day calorie count. 5. Continue to monitor blood pressure. 6. CBC and CMP in the morning. 7. Accu-Cheks with sliding scale coverage. 8. 1800-calorie, heart healthy, ADA diet. 9. Discussed with the patient and in detail. All questions answered. 10. Remains noncompliant with CPAP and aware of the risks. Job ID: [id number]
[2020-09-21] MEDS: Atorvastatin Calcium 40 MG TAB PO SCH (20:20)
[2020-09-21] MEDS: Tamsulosin HCl 0.4 MG CAP PO SCH (20:21)
[2020-09-21] MEDS: rOPINIRole HCl 1 MG TAB PO SCH (20:21)
[2020-09-21] MEDS: Melatonin 3 MG TAB PO PRN (20:22)
[2020-09-22 05:37] LABS: #Basophils 0.1 thou/uL (0.0-0.2); #Eosinphils 0.1 thou/uL (0.0-0.7); #Lymphocytes 0.9 thou/uL (1.20-3.40); #Monocytes 0.6 thou/uL (0.11-0.59); #Neutrophils 8.3 thou/uL (1.40-6.50); %Basophils 0.5 % (0.0-1.0); %Eosinophils 1.4 % (0.0-10.0); %Lymphocytes 8.6 % (21.0-51.0); %Monocytes 6.1 % (0.0-10.0); %Neutrophils 83.4 % (42.0-75.0); Anion Gap 20 mmol/L (10-20); Anisocytosis SLIGHT = 6-15 cells (100X) (0-5/hpf); BUN (Urea Nitrogen) 86 mg/dL (8.4-25.7); Burr Cells SLIGHT = 2-5 cells (100X) (0-1/hpf); Calc. Creatinine Clearance 29 mL/min (70-130); Calcium 7.7 mg/dL (7.8-10.44); Carbon Dioxide 28 mmol/L (23-31); Chloride 100 mmol/L (98-107); Glucose 104 mg/dL (83-110); Hemoglobin 7.9 g/dL (14.0-18.0); MDiff Complete? YES; Macrocytosis SLIGHT = 6-15 cells (100X) (0-5/hpf); Mean Corpuscular HGB CONC 30.7 g/dL (32.0-36.0); Mean Corpuscular Hemoglobin 32.5 pg (27.0-31.0); Ovalocytes SLIGHT = 2-5 cells (100X) (0-1/hpf); Platelet Count 102 thou/uL (130-400); Platelet Morphology Comment Appears Decreased; Potassium 4.3 mmol/L (3.5-5.1); RBC Distribution Width 16.6 % (11.5-14.5); Red Blood Cell (RBC) Count 2.43 mill/uL (4.70-6.10); Sodium 144 mmol/L (136-145)
[2020-09-22] MEDS: Levothyroxine Sodium 25 MCG TAB PO SCH (06:12)
[2020-09-22] MEDS: Levothyroxine Sodium 112 MCG TAB PO SCH (06:12)
[2020-09-22] MEDS: Mometasone/Formoterol 60 PUFF AER INH SCH ×2 (08:31→20:24)
[2020-09-22] MEDS: Carvedilol 6.25 MG TAB PO SCH ×2 (08:31→16:16)
[2020-09-22] MEDS: Apixaban 2.5 MG TAB PO SCH ×2 (08:32→20:13)
[2020-09-22] MEDS: Allopurinol 100 MG TAB PO SCH (08:32)
[2020-09-22] MEDS: Furosemide 80 MG TAB PO SCH ×2 (08:32→15:29)
[2020-09-22] MEDS: Clopidogrel Bisulfate 75 MG TAB PO SCH (08:32)
[2020-09-22] MEDS: Calcium Acetate 667 MG CAP PO SCH ×3 (08:32→16:16)
[2020-09-22] MEDS: Acetaminophen 325 MG TAB PO SCH ×2 (08:33→20:14)
[2020-09-22] MEDS: Dronedarone HCl 400 MG TAB PO SCH ×2 (08:33→16:17)
[2020-09-22] MEDS: predniSONE 20 MG TAB PO SCH (08:34)
[2020-09-22] MEDS: Senokot S 8.6-50 MG TAB PO SCH ×2 (08:34→20:24)
--- NOTE | 2020-09-22 08:37 | PRG ---
DATE OF SERVICE: SUBJECTIVE: Mr. Marc is up in bed eating breakfast. He states he feels tired. We again reinforced to him that the most likely reason is that he is not using his CPAP. He is willing to participate with therapy, but needs a lot of encouragement. His spouse is not in the room. Three day calorie count is underway and they remain at nursing. OBJECTIVE: VITAL SIGNS: He is afebrile. Heart rate 82, respirations 20, oxygen saturation 100% on 3 L, blood pressure 153/69, this was last night. I do not have blood pressures from this morning. CARDIOVASCULAR: S1-S2 plus. RESPIRATORY: Normal vesicular breath sounds with decreased air entry in the bases. ABDOMEN: Soft, obese, nontender. Bowel sounds heard in all quadrants. EXTREMITIES: Without cyanosis or clubbing. CENTRAL NERVOUS SYSTEM: Generalized weakness, otherwise nonfocal. LABORATORY VALUES: Show a white count of 10, H and H of 7.9 and 25.8 with macrocytosis. Sodium 144, potassium 4.3, BUN and creatinine are 86 and 2.82. Blood sugars are 135, 163, 164, 88, and 122. IMPRESSION: 1. Chronic diastolic congestive heart failure. 2. Acute on chronic hypoxemic respiratory failure. 3. Obstructive sleep apnea. 4. Chronic obstructive pulmonary disease. 5. Chronic kidney disease, stage 4. 6. Paroxysmal atrial fibrillation. 7. Morbid obesity. 8. Depression. 9. Diabetes mellitus, type 2. 10. Osteoarthritis. PLAN: 1. Continue current medications. 2. Heart healthy renal diet. 3. Accu-Cheks with sliding scale coverage. 4. Improving renal function. Continue to monitor. 5. DVT prophylaxis-he is on Eliquis. 6. Decubitus precautions. 7. Stress ulcer prophylaxis. 8. Three day calorie count. 9. Encouraged the patient to at least wear his CPAP couple of hours at night. 10. Dr. Das on-call this weekend. Job ID: [id number]
[2020-09-22] MEDS: traMADol HCl 50 MG TAB PO PRN (09:07)
[2020-09-22] MEDS: HumaLOG 300 UNITS/3 ML VIAL SC PRN ×2 (17:12→20:14)
[2020-09-22] MEDS: Melatonin 3 MG TAB PO PRN (20:12)
[2020-09-22] MEDS: Tamsulosin HCl 0.4 MG CAP PO SCH (20:13)
[2020-09-22] MEDS: rOPINIRole HCl 1 MG TAB PO SCH (20:14)
[2020-09-22] MEDS: Atorvastatin Calcium 40 MG TAB PO SCH (20:14)
[2020-09-23] MEDS: Levothyroxine Sodium 112 MCG TAB PO SCH (05:50)
[2020-09-23] MEDS: Levothyroxine Sodium 25 MCG TAB PO SCH (05:50)
[2020-09-23] MEDS: Calcium Acetate 667 MG CAP PO SCH ×3 (08:31→17:49)
[2020-09-23] MEDS: Apixaban 2.5 MG TAB PO SCH ×2 (08:31→20:14)
[2020-09-23] MEDS: Allopurinol 100 MG TAB PO SCH (08:31)
[2020-09-23] MEDS: Carvedilol 6.25 MG TAB PO SCH ×2 (08:31→17:48)
[2020-09-23] MEDS: predniSONE 20 MG TAB PO SCH (08:32)
[2020-09-23] MEDS: Acetaminophen 325 MG TAB PO SCH ×2 (08:32→20:16)
[2020-09-23] MEDS: Dronedarone HCl 400 MG TAB PO SCH ×2 (08:33→17:49)
[2020-09-23] MEDS: Mometasone/Formoterol 60 PUFF AER INH SCH ×2 (08:34→20:12)
[2020-09-23] MEDS: Furosemide 80 MG TAB PO SCH ×2 (08:35→13:58)
[2020-09-23] MEDS: Clopidogrel Bisulfate 75 MG TAB PO SCH (08:35)
--- NOTE | 2020-09-23 09:56 | PRG ---
DATE OF SERVICE: 09/23/2020 SUBJECTIVE: Mr. Marc is an 80-year-old male, lying in bed, no acute distress. Patient is doing well. He is participating well in therapy, but does need a lot of encouragement. Doing well overall. OBJECTIVE: VITAL SIGNS: Afebrile. Temperature 97.1, pulse 78, blood pressure 137/60 to 148/63, O2 sats 99% on 2 L nasal cannula. GENERAL: Well-appearing 80-year-old male, lying in bed, no acute distress. CARDIOVASCULAR: Regular rate and rhythm. No murmurs, gallops, or rubs. RESPIRATORY: Clear to auscultation bilaterally. No wheezes or rhonchi. GI: Soft, nontender to palpation. Bowel sounds positive in all 4 quadrants. EXTREMITIES: No cyanosis or clubbing. CRANE MAN: Generalized weakness, otherwise unremarkable. IMPRESSION: 1. Chronic diastolic congestive heart failure. 2. Acute on chronic hypoxemic respiratory failure. 3. Obstructive sleep apnea. 4. Chronic obstructive pulmonary disease. 5. Chronic kidney disease stage 4. 6. Paroxysmal atrial fibrillation. 7. Morbid obesity. 8. Depression. 9. Diabetes mellitus type 2. 10. Osteoarthritis. PLAN: 1. Continue current medications. 2. Heart healthy diet. 3. Accu-Cheks with sliding scale coverage. 4. Improving renal function. Continue to monitor. 5. DVT prophylaxis, on Eliquis. 6. Encouraged patient again today to wear CPAP as much as tolerated. Job ID: [id number]
[2020-09-23] MEDS: Senokot S 8.6-50 MG TAB PO SCH ×2 (10:00→20:17)
[2020-09-23] MEDS: HumaLOG 300 UNITS/3 ML VIAL SC PRN ×3 (12:14→20:13)
[2020-09-23] MEDS: Tamsulosin HCl 0.4 MG CAP PO SCH (20:14)
[2020-09-23] MEDS: Atorvastatin Calcium 40 MG TAB PO SCH (20:16)
[2020-09-23] MEDS: rOPINIRole HCl 1 MG TAB PO SCH (20:16)
[2020-09-23] MEDS: Melatonin 3 MG TAB PO PRN (20:16)
[2020-09-24] MEDS: Levothyroxine Sodium 112 MCG TAB PO SCH (05:11)
[2020-09-24] MEDS: Levothyroxine Sodium 25 MCG TAB PO SCH (05:11)
[2020-09-24] MEDS: Acetaminophen 325 MG TAB PO SCH ×2 (09:09→21:09)
[2020-09-24] MEDS: Allopurinol 100 MG TAB PO SCH (09:09)
[2020-09-24] MEDS: Senokot S 8.6-50 MG TAB PO SCH ×2 (09:10→21:07)
[2020-09-24] MEDS: Dronedarone HCl 400 MG TAB PO SCH ×2 (09:10→16:47)
[2020-09-24] MEDS: predniSONE 20 MG TAB PO SCH (09:10)
[2020-09-24] MEDS: Carvedilol 6.25 MG TAB PO SCH ×2 (09:10→16:47)
[2020-09-24] MEDS: Calcium Acetate 667 MG CAP PO SCH ×3 (09:10→16:47)
[2020-09-24] MEDS: Clopidogrel Bisulfate 75 MG TAB PO SCH (09:10)
[2020-09-24] MEDS: Furosemide 80 MG TAB PO SCH ×2 (09:11→15:47)
[2020-09-24] MEDS: Apixaban 2.5 MG TAB PO SCH ×2 (09:11→21:09)
[2020-09-24] MEDS: Mometasone/Formoterol 60 PUFF AER INH SCH ×2 (09:27→21:06)
[2020-09-24] MEDS: HumaLOG 300 UNITS/3 ML VIAL SC PRN ×2 (11:59→16:47)
[2020-09-24] MEDS: Melatonin 3 MG TAB PO PRN (21:06)
[2020-09-24] MEDS: Atorvastatin Calcium 40 MG TAB PO SCH (21:07)
[2020-09-24] MEDS: rOPINIRole HCl 1 MG TAB PO SCH (21:07)
[2020-09-24] MEDS: Tamsulosin HCl 0.4 MG CAP PO SCH (21:08)
[2020-09-25] MEDS: Levothyroxine Sodium 112 MCG TAB PO SCH (05:40)
[2020-09-25] MEDS: Levothyroxine Sodium 25 MCG TAB PO SCH (05:40)
[2020-09-25] MEDS: Mometasone/Formoterol 60 PUFF AER INH SCH ×2 (08:24→21:22)
[2020-09-25] MEDS: Dronedarone HCl 400 MG TAB PO SCH ×2 (08:26→16:14)
[2020-09-25] MEDS: Acetaminophen 325 MG TAB PO SCH ×2 (08:26→21:17)
[2020-09-25] MEDS: Carvedilol 6.25 MG TAB PO SCH ×2 (08:26→16:14)
[2020-09-25] MEDS: predniSONE 20 MG TAB PO SCH (08:26)
[2020-09-25] MEDS: Calcium Acetate 667 MG CAP PO SCH ×3 (08:26→16:14)
[2020-09-25] MEDS: Allopurinol 100 MG TAB PO SCH (08:27)
[2020-09-25] MEDS: Clopidogrel Bisulfate 75 MG TAB PO SCH (08:28)
[2020-09-25] MEDS: Senokot S 8.6-50 MG TAB PO SCH ×2 (08:28→21:40)
[2020-09-25] MEDS: Furosemide 80 MG TAB PO SCH ×2 (08:28→14:22)
[2020-09-25] MEDS: Apixaban 2.5 MG TAB PO SCH ×2 (08:28→21:18)
--- NOTE | 2020-09-25 11:58 | PRG ---
DATE OF SERVICE: 09/25/2020 SUBJECTIVE: Mr. Marc is doing well. He states that he did participate with therapy. He also states that he is eating better, 3-day calorie count is pending. He normally is on 2 L of oxygen at home, so we have nursing reduce it to 2 L. No family at bedside. OBJECTIVE: VITAL SIGNS: He is afebrile. Heart rate 78, respirations 20, oxygen saturation 100% on 3 L, blood pressure 159/71. CARDIOVASCULAR: S1 and S2 plus. RESPIRATORY: Normal vesicular breath sounds. ABDOMEN: Soft, nontender. Bowel sounds heard in all quadrants. EXTREMITIES: Without cyanosis or clubbing. CENTRAL NERVOUS SYSTEM: Generalized weakness, otherwise nonfocal. IMPRESSION: 1. Diabetes mellitus type 2. 2. Hypertension. 3. Dyslipidemia. 4. Paroxysmal atrial fibrillation. 5. Resolved acute on chronic diastolic congestive heart failure. 6. Chronic hypoxemic respiratory failure. 7. Chronic obstructive pulmonary disease. 8. Depression and anxiety. 9. Anemia of chronic disease. PLAN: 1. Titrate oxygen down to 2 L. 2. Continue current medications. 3. 1800 calorie heart healthy ADA diet. 4. Monitor respiratory status and breathing treatments as needed. 5. Await 3-day calorie count. 6. Continue therapy. 7. Routine laboratory values. 8. Accu-Cheks with sliding scale coverage. 9. DVT prophylaxis - the patient is on Eliquis. 10. Discussed with the patient and nursing. All questions were answered. No family at bedside. Job ID: [id number]
[2020-09-25] MEDS: HumaLOG 300 UNITS/3 ML VIAL SC PRN (16:14)
[2020-09-25] MEDS: Atorvastatin Calcium 40 MG TAB PO SCH (21:16)
[2020-09-25] MEDS: rOPINIRole HCl 1 MG TAB PO SCH (21:17)
[2020-09-25] MEDS: Tamsulosin HCl 0.4 MG CAP PO SCH (21:18)
[2020-09-26] MEDS: Levothyroxine Sodium 112 MCG TAB PO SCH (06:02)
[2020-09-26] MEDS: Levothyroxine Sodium 25 MCG TAB PO SCH (06:02)
[2020-09-26] MEDS: Mometasone/Formoterol 60 PUFF AER INH SCH ×2 (08:32→21:01)
[2020-09-26] MEDS: Acetaminophen 325 MG TAB PO SCH ×2 (08:34→21:04)
[2020-09-26] MEDS: Dronedarone HCl 400 MG TAB PO SCH ×2 (08:34→17:07)
[2020-09-26] MEDS: predniSONE 20 MG TAB PO SCH (08:34)
[2020-09-26] MEDS: Carvedilol 6.25 MG TAB PO SCH ×2 (08:34→17:07)
[2020-09-26] MEDS: Calcium Acetate 667 MG CAP PO SCH ×3 (08:34→17:07)
[2020-09-26] MEDS: Allopurinol 100 MG TAB PO SCH (08:35)
[2020-09-26] MEDS: Apixaban 2.5 MG TAB PO SCH ×2 (08:36→21:05)
[2020-09-26] MEDS: Clopidogrel Bisulfate 75 MG TAB PO SCH (08:36)
[2020-09-26] MEDS: Furosemide 80 MG TAB PO SCH ×2 (08:36→14:12)
[2020-09-26] MEDS: Senokot S 8.6-50 MG TAB PO SCH ×2 (08:36→21:04)
--- NOTE | 2020-09-26 13:37 | PRG ---
DATE OF SERVICE: 09/26/2020 SUBJECTIVE: Mr. Marc is up in his chair. He has been changed to a pureed diet as he is being complaining that he cannot swallow. Speech Therapy evaluated him and changed him to a pureed diet. He ate about 20% of his lunch. Looked at the 3-day calorie count done by the dietitian and total of about 1200 calories intake, but he is working on the final. I again encouraged him to eat well. Otherwise, he is probably not going to be able to go home. He states that his left leg is not working, but both Therapy, Speech Therapy, Physical Therapy do think that it is more psychological. OBJECTIVE: VITAL SIGNS: He is afebrile, heart rate is 82, respirations 18, oxygen saturation 95% on 2 L nasal cannula, and blood pressure 117/58. CARDIOVASCULAR SYSTEM: S1 and S2 plus. RESPIRATORY SYSTEM: Normal vesicular breath sounds. ABDOMEN: Soft, obese, nontender. Bowel sounds heard in all quadrants. EXTREMITIES: Without cyanosis, clubbing. CENTRAL NERVOUS SYSTEM: Generalized weakness. LABORATORY DATA: Blood sugars are 146, 251, 198, 88, and 126. IMPRESSION: 1. Chronic obstructive pulmonary disease. 2. Chronic diastolic congestive heart failure. 3. Obstructive sleep apnea. 4. Atrial fibrillation. 5. Diabetes mellitus, type 2. 6. Hypertension. 7. Dyslipidemia. 8. Depression and anxiety. PLAN: 1. Continue current medications. 2. 1800-calorie, heart healthy, ADA diet. 3. Accu-Cheks with sliding scale coverage. 4. DVT prophylaxis, he is on Eliquis. 5. Decubitus precautions. 6. Stress ulcer prophylaxis. 7. Physical Therapy. 8. Increase sertraline to 100 mg and see if that helps. 9. Monitor p.o. intake. 10. Await Therapy decision from case conference. He may have to be placed in a long-term care facility if he is deemed not safe to go home. Job ID: [id number]
[2020-09-26] MEDS: HumaLOG 300 UNITS/3 ML VIAL SC PRN ×2 (17:08→21:02)
[2020-09-26] MEDS: Melatonin 3 MG TAB PO PRN (21:03)
[2020-09-26] MEDS: Atorvastatin Calcium 40 MG TAB PO SCH (21:04)
[2020-09-26] MEDS: rOPINIRole HCl 1 MG TAB PO SCH (21:04)
[2020-09-26] MEDS: Tamsulosin HCl 0.4 MG CAP PO SCH (21:05)
[2020-09-27] MEDS: Levothyroxine Sodium 112 MCG TAB PO SCH (05:29)
[2020-09-27] MEDS: Levothyroxine Sodium 25 MCG TAB PO SCH (05:29)
[2020-09-27] MEDS: Mometasone/Formoterol 60 PUFF AER INH SCH ×2 (09:19→20:46)
[2020-09-27] MEDS: EPOETIN ALFA-EPBX (ESRD) 10,000 UNIT/ML VIAL SC SCH (09:20)
[2020-09-27] MEDS: Allopurinol 100 MG TAB PO SCH (09:22)
[2020-09-27] MEDS: Calcium Acetate 667 MG CAP PO SCH ×3 (09:22→16:58)
[2020-09-27] MEDS: Carvedilol 6.25 MG TAB PO SCH ×2 (09:23→16:58)
[2020-09-27] MEDS: Acetaminophen 325 MG TAB PO SCH ×2 (09:23→20:48)
[2020-09-27] MEDS: Apixaban 2.5 MG TAB PO SCH ×2 (09:24→20:48)
[2020-09-27] MEDS: Furosemide 80 MG TAB PO SCH ×2 (09:24→14:40)
[2020-09-27] MEDS: Senokot S 8.6-50 MG TAB PO SCH ×2 (09:24→20:48)
[2020-09-27] MEDS: Dronedarone HCl 400 MG TAB PO SCH ×2 (09:24→16:59)
[2020-09-27] MEDS: Clopidogrel Bisulfate 75 MG TAB PO SCH (09:24)
[2020-09-27] MEDS: predniSONE 20 MG TAB PO SCH (09:24)
--- NOTE | 2020-09-27 13:11 | PRG ---
DATE OF SERVICE: 09/27/2020 SUBJECTIVE: Mr. Marc is up in his chair. He hardly ate 20% of his lunch, but he did drink his Suplena. He again states that he is not hungry. He also states that he cannot swallow and does not want me to change his consistency to anything like mechanically soft or chopped foods. He apparently is not really doing much with therapy. His is apparently insisting that he go home with home health, but I did advise them that unless Therapy and Nursing feel that he will be safe to go home with home health, I will not authorize it. He may leave AMA or we can find him a place in a nursing facility. I did make the patient aware of this as well. is not at his bedside. OBJECTIVE: VITAL SIGNS: He is afebrile, heart rate 65, respirations 18, oxygen saturation 99% on 3 L nasal cannula, blood pressure 150/74. CARDIOVASCULAR SYSTEM: S1 and S2 plus. RESPIRATORY SYSTEM: Normal vesicular breath sounds. ABDOMEN: Soft, obese, nontender. Bowel sounds heard in all quadrants. EXTREMITIES: Without cyanosis or clubbing. Trace edema. CENTRAL NERVOUS SYSTEM: Generalized weakness, otherwise nonfocal. LABORATORY DATA: His blood sugars are 206, 248, 102, and 138. IMPRESSION: 1. Chronic diastolic congestive heart failure. 2. Chronic hypoxemic respiratory failure, stable. 3. Chronic obstructive pulmonary disease. 4. Paroxysmal atrial fibrillation. 5. Obstructive sleep apnea, noncompliant with CPAP. 6. Dyslipidemia. 7. Hypertension. 8. Diabetes mellitus type 2. 9. Depression. 10. Significant deconditioning. PLAN: 1. Continue current medications. 2. 1800 calorie heart healthy ADA diet. 3. Accu-Cheks with sliding scale coverage. 4. DVT prophylaxis-the patient is on Eliquis. 5. Decubitus precautions. 6. Stress ulcer prophylaxis. 7. Recheck CBC and BMP tomorrow. 8. Encourage the patient to participate with therapy and eat better. 9. Possible intermediate placement if he does not improve. Job ID: [id number] MTDD
[2020-09-27] MEDS: HumaLOG 300 UNITS/3 ML VIAL SC PRN ×2 (17:44→20:45)
[2020-09-27] MEDS: Melatonin 3 MG TAB PO PRN (20:47)
[2020-09-27] MEDS: rOPINIRole HCl 1 MG TAB PO SCH (20:47)
[2020-09-27] MEDS: Atorvastatin Calcium 40 MG TAB PO SCH (20:47)
[2020-09-27] MEDS: Tamsulosin HCl 0.4 MG CAP PO SCH (20:48)
[2020-09-28] MEDS: Levothyroxine Sodium 25 MCG TAB PO SCH (05:29)
[2020-09-28] MEDS: Levothyroxine Sodium 112 MCG TAB PO SCH (05:29)
[2020-09-28 06:04] LABS: #Eosinphils 0.1 thou/uL (0.0-0.7); #Lymphocytes 0.6 thou/uL (1.20-3.40); #Monocytes 0.4 thou/uL (0.11-0.59); #Neutrophils 4.1 thou/uL (1.40-6.50); %Basophils 0.7 % (0.0-1.0); %Eosinophils 1.2 % (0.0-10.0); %Lymphocytes 11.1 % (21.0-51.0); %Monocytes 7.4 % (0.0-10.0); %Neutrophils 79.6 % (42.0-75.0); Anisocytosis SLIGHT = 6-15 cells (100X) (0-5/hpf); BUN (Urea Nitrogen) 81 mg/dL (8.4-25.7); Calc. Creatinine Clearance 32 mL/min (70-130); Calcium 7.9 mg/dL (7.8-10.44); Glucose 104 mg/dL (83-110); Hemoglobin 7.4 g/dL (14.0-18.0); Hypochromia SLIGHT = 6-15 cells (100X) (0-5/hpf); MDiff Complete? YES; Macrocytosis SLIGHT = 6-15 cells (100X) (0-5/hpf); Mean Corpuscular Hemoglobin 32.4 pg (27.0-31.0); Mean Platelet Volume 14.2 fL (7.4-10.4); Platelet Count 71 thou/uL (130-400); Platelet Morphology Comment Appears Decreased; RBC Distribution Width 16.8 % (11.5-14.5); Red Blood Cell (RBC) Count 2.29 mill/uL (4.70-6.10); Target Cells SLIGHT = 2-5 cells (100X) (0-1/hpf); White Blood Cell (WBC) Count 5.2 thou/uL (4.8-10.8)
[2020-09-28 06:30] LABS: Anion Gap 17 mmol/L (10-20); Carbon Dioxide 38 mmol/L (23-31)
[2020-09-28 06:38] LABS: Chloride 95 mmol/L (98-107); Sodium 146 mmol/L (136-145)
[2020-09-28] MEDS: Mometasone/Formoterol 60 PUFF AER INH SCH ×2 (08:44→21:28)
[2020-09-28] MEDS: Apixaban 2.5 MG TAB PO SCH ×2 (08:45→21:29)
[2020-09-28] MEDS: Acetaminophen 325 MG TAB PO SCH ×2 (08:45→21:30)
[2020-09-28] MEDS: Allopurinol 100 MG TAB PO SCH (08:45)
[2020-09-28] MEDS: predniSONE 20 MG TAB PO SCH (08:45)
[2020-09-28] MEDS: Clopidogrel Bisulfate 75 MG TAB PO SCH (08:45)
[2020-09-28] MEDS: Furosemide 80 MG TAB PO SCH ×2 (08:46→13:10)
[2020-09-28] MEDS: Calcium Acetate 667 MG CAP PO SCH ×3 (08:46→16:55)
[2020-09-28] MEDS: Dronedarone HCl 400 MG TAB PO SCH ×2 (08:46→16:55)
[2020-09-28] MEDS: Senokot S 8.6-50 MG TAB PO SCH ×2 (08:47→21:29)
[2020-09-28] MEDS: Carvedilol 6.25 MG TAB PO SCH ×2 (08:49→16:55)
[2020-09-28] MEDS ORDERED: Promethazine 25 MG TAB PO PRN (12:21)
--- NOTE | 2020-09-28 12:54 | PRG ---
DATE OF SERVICE: 09/28/2020 SUBJECTIVE: Mr. Marc is up in bed, eating his lunch. He ate about 1/3 of his lunch. He is drinking his Suplena. He states that he is noticing some nausea, so I ordered Phenergan to be taken before meals. He states that he went to therapy and worked about an hour in the gym. I advised him to continue to do that and hopefully he will improve enough to go home. OBJECTIVE: VITAL SIGNS: He is afebrile. Heart rate 56, respirations 18, oxygen saturation 99% on 3 L, blood pressure 141/58. CARDIOVASCULAR: S1, S2 plus. RESPIRATORY: Normal vesicular breath sounds. ABDOMEN: Soft, obese, nontender. Bowel sounds heard in all quadrants. EXTREMITIES: Without cyanosis or clubbing. Peripheral pulses are palpable. Trace edema. CENTRAL NERVOUS SYSTEM: Generalized weakness. Otherwise, nonfocal. LABORATORY DATA: Laboratory values show a sodium of 146, potassium 4.0, BUN and creatinine are 81 and 2.52, slightly better than before. Blood sugars are 138, 277, 283, 104, and 151. IMPRESSION: 1. Resolved [id number] diastolic congestive heart failure. 2. Chronic hypoxemic respiratory failure, stable. 3. Chronic obstructive pulmonary disease. 4. Obstructive sleep apnea, noncompliant with CPAP. 5. Paroxysmal atrial fibrillation. 6. Diabetes mellitus type 2. 7. Hypertension. 8. Dyslipidemia. 9. Depression and anxiety. 10. Deconditioning. PLAN: 1. Continue current medications. 2. Add Phenergan 25 mg q.6h p.r.n. nausea. 3. Continue therapy. 4. DVT prophylaxis - the patient is on Eliquis. 5. Decubitus precautions. 6. Stress ulcer prophylaxis. 7. Encourage the patient to eat and participate with therapy. 8. No family at bedside. 9. Discussed with the patient and nursing. All questions answered. Again reinforced the nursing to get his oxygen down to 2 L, which is his baseline. Job ID: [id number]
[2020-09-28] MEDS: HumaLOG 300 UNITS/3 ML VIAL SC PRN ×3 (13:09→21:30)
[2020-09-28] MEDS: Atorvastatin Calcium 40 MG TAB PO SCH (21:29)
[2020-09-28] MEDS: rOPINIRole HCl 1 MG TAB PO SCH (21:29)
[2020-09-28] MEDS: Tamsulosin HCl 0.4 MG CAP PO SCH (21:29)
[2020-09-29] MEDS: Levothyroxine Sodium 112 MCG TAB PO SCH (05:47)
[2020-09-29] MEDS: Levothyroxine Sodium 25 MCG TAB PO SCH (05:47)
[2020-09-29] MEDS: Allopurinol 100 MG TAB PO SCH (09:28)
[2020-09-29] MEDS: Carvedilol 6.25 MG TAB PO SCH ×2 (09:29→17:18)
[2020-09-29] MEDS: Calcium Acetate 667 MG CAP PO SCH ×3 (09:32→17:23)
[2020-09-29] MEDS: Dronedarone HCl 400 MG TAB PO SCH ×2 (09:32→17:20)
[2020-09-29] MEDS: predniSONE 20 MG TAB PO SCH (09:33)
[2020-09-29] MEDS: Senokot S 8.6-50 MG TAB PO SCH ×2 (09:33→20:51)
[2020-09-29] MEDS: Furosemide 80 MG TAB PO SCH ×2 (09:34→15:14)
[2020-09-29] MEDS: Acetaminophen 325 MG TAB PO SCH ×2 (09:34→20:51)
[2020-09-29] MEDS: Apixaban 2.5 MG TAB PO SCH ×2 (09:34→20:51)
[2020-09-29] MEDS: Clopidogrel Bisulfate 75 MG TAB PO SCH (09:34)
[2020-09-29] MEDS: Mometasone/Formoterol 60 PUFF AER INH SCH ×2 (09:35→20:50)
[2020-09-29] MEDS: HumaLOG 300 UNITS/3 ML VIAL SC PRN ×2 (17:25→20:54)
[2020-09-29] MEDS: Atorvastatin Calcium 40 MG TAB PO SCH (20:51)
[2020-09-29] MEDS: rOPINIRole HCl 1 MG TAB PO SCH (20:51)
[2020-09-29] MEDS: Tamsulosin HCl 0.4 MG CAP PO SCH (20:55)
[2020-09-30] MEDS: Levothyroxine Sodium 25 MCG TAB PO SCH (06:16)
[2020-09-30] MEDS: Levothyroxine Sodium 112 MCG TAB PO SCH (06:16)
[2020-09-30] MEDS: Mometasone/Formoterol 60 PUFF AER INH SCH ×2 (08:13→21:53)
[2020-09-30] MEDS: Calcium Acetate 667 MG CAP PO SCH ×3 (08:14→17:02)
[2020-09-30] MEDS: Dronedarone HCl 400 MG TAB PO SCH ×2 (08:15→17:02)
[2020-09-30] MEDS: predniSONE 20 MG TAB PO SCH (08:15)
[2020-09-30] MEDS: Acetaminophen 325 MG TAB PO SCH ×2 (08:15→21:55)
[2020-09-30] MEDS: Carvedilol 6.25 MG TAB PO SCH ×2 (08:15→17:02)
[2020-09-30] MEDS: Allopurinol 100 MG TAB PO SCH (08:16)
[2020-09-30] MEDS: Clopidogrel Bisulfate 75 MG TAB PO SCH (08:17)
[2020-09-30] MEDS: Furosemide 80 MG TAB PO SCH ×2 (08:17→14:13)
[2020-09-30] MEDS: Senokot S 8.6-50 MG TAB PO SCH ×2 (08:17→21:55)
[2020-09-30] MEDS: Apixaban 2.5 MG TAB PO SCH ×2 (08:17→21:56)
[2020-09-30] MEDS: traMADol HCl 50 MG TAB PO PRN (08:18)
[2020-09-30] MEDS: HumaLOG 300 UNITS/3 ML VIAL SC PRN ×2 (11:56→17:02)
--- NOTE | 2020-09-30 16:21 | PRG ---
DATE OF SERVICE: 09/30/2020 SUBJECTIVE: Mr. Marc is up in bed. Denies any complaints. Continues to eat poorly. His flat affect seems to be improving. OBJECTIVE: VITAL SIGNS: He is afebrile. Heart rate 58, respirations 20, oxygen saturation 99% on 2 L, blood pressure 165/72 this morning prior to his blood pressure medication. CARDIOVASCULAR SYSTEM: S1 and S2 plus. RESPIRATORY SYSTEM: Normal vesicular breath sounds with decreased air entry at the bases. ABDOMEN: Soft, obese, nontender. Bowel sounds heard in all quadrants. EXTREMITIES: Without cyanosis or clubbing. Trace edema. CENTRAL NERVOUS SYSTEM : Generalized weakness. LABORATORY DATA: Blood sugars are 132, 252, 264, 90, and 189. IMPRESSION: 1. Chronic diastolic congestive heart failure. 2. Chronic obstructive pulmonary disease. 3. Paroxysmal atrial fibrillation. 4. Obstructive sleep apnea, noncompliant with CPAP. 5. Hypertension. 6. Dyslipidemia. 7. Diabetes mellitus type 2. 8. Deconditioning. PLAN: 1. Continue current medications. 2. Change into DNR per patient and family request. 3. 1800-calorie heart healthy ADA diet. 4. Reinforced compliance with CPAP. 5. Continue to encourage p.o. intake. 6. Physical therapy. 7. Routine laboratory values. Job ID: [id number]
[2020-09-30] MEDS: Tamsulosin HCl 0.4 MG CAP PO SCH (21:55)
[2020-09-30] MEDS: rOPINIRole HCl 1 MG TAB PO SCH (21:55)
[2020-09-30] MEDS: Atorvastatin Calcium 40 MG TAB PO SCH (21:55)
[2020-10-01 05:59] VITALS: BMI 33.9
[2020-10-01] MEDS: Levothyroxine Sodium 25 MCG TAB PO SCH (05:59)
[2020-10-01] MEDS: Levothyroxine Sodium 112 MCG TAB PO SCH (06:00)
[2020-10-01] MEDS: Mometasone/Formoterol 60 PUFF AER INH SCH ×2 (08:32→20:50)
[2020-10-01] MEDS: Dronedarone HCl 400 MG TAB PO SCH ×2 (08:34→17:09)
[2020-10-01] MEDS: Acetaminophen 325 MG TAB PO SCH ×2 (08:34→20:44)
[2020-10-01] MEDS: Carvedilol 6.25 MG TAB PO SCH ×2 (08:34→17:09)
[2020-10-01] MEDS: Calcium Acetate 667 MG CAP PO SCH ×3 (08:34→17:09)
[2020-10-01] MEDS: predniSONE 20 MG TAB PO SCH (08:34)
[2020-10-01] MEDS: Apixaban 2.5 MG TAB PO SCH ×2 (08:35→20:48)
[2020-10-01] MEDS: Clopidogrel Bisulfate 75 MG TAB PO SCH (08:35)
[2020-10-01] MEDS: Allopurinol 100 MG TAB PO SCH (08:35)
[2020-10-01] MEDS: Furosemide 80 MG TAB PO SCH ×2 (08:36→14:30)
[2020-10-01] MEDS: Senokot S 8.6-50 MG TAB PO SCH ×2 (08:36→20:51)
--- NOTE | 2020-10-01 15:50 | PRG ---
DATE OF SERVICE: 10/01/2020 SUBJECTIVE: Mr. Marc is resting in bed. He apparently sat in his chair for . Nursing states that they still need two to three people to help him from his bed to his wheelchair and then from the wheelchair to commode and back. The patient states that he is improving. He still is not compliant with his CPAP. No family at bedside. At this rate, I do not foresee him being able to go home and be safe. OBJECTIVE: VITAL SIGNS: He is afebrile. Heart rate 53, respirations 18, oxygen saturation 100% on 2 L, blood pressure 139/66. CARDIOVASCULAR SYSTEM: S1, S2 plus. RESPIRATORY SYSTEM: Normal vesicular breath sounds. ABDOMEN: Soft, nontender. Bowel sounds heard in all quadrants. EXTREMITIES: Without cyanosis, clubbing. CENTRAL NERVOUS SYSTEM: Generalized weakness otherwise nonfocal. IMPRESSION: 1. Chronic diastolic congestive heart failure. 2. Chronic obstructive pulmonary disease. 3. Obstructive sleep apnea, noncompliant with CPAP. 4. Atrial fibrillation. 5. Diabetes mellitus type 2. 6. Hypertension. 7. Dyslipidemia. 8. Depression. 9. Deconditioning. 10. Chronic hypoxemic respiratory failure. PLAN: 1. Continue current medications. 2. 1800 calorie heart healthy ADA diet. 3. Accu-Cheks with sliding scale coverage. 4. DVT prophylaxis, the patient is on Eliquis. 5. Decubitus precautions. 6. Stress ulcer prophylaxis. 7. Routine laboratory values. 8. Physical therapy. 9. Discharge planning. Job ID: [id number]
[2020-10-01] MEDS: HumaLOG 300 UNITS/3 ML VIAL SC PRN ×2 (17:25→20:57)
[2020-10-01] MEDS: rOPINIRole HCl 1 MG TAB PO SCH (20:47)
[2020-10-01] MEDS: Tamsulosin HCl 0.4 MG CAP PO SCH (20:47)
[2020-10-01] MEDS: Atorvastatin Calcium 40 MG TAB PO SCH (20:48)
[2020-10-02] MEDS: Levothyroxine Sodium 25 MCG TAB PO SCH (06:04)
[2020-10-02] MEDS: Levothyroxine Sodium 112 MCG TAB PO SCH (06:04)
[2020-10-02] MEDS: Carvedilol 6.25 MG TAB PO SCH ×2 (08:42→16:45)
[2020-10-02] MEDS: Furosemide 80 MG TAB PO SCH ×2 (08:42→14:59)
[2020-10-02] MEDS: Dronedarone HCl 400 MG TAB PO SCH ×2 (08:42→16:44)
[2020-10-02] MEDS: Mometasone/Formoterol 60 PUFF AER INH SCH ×2 (08:42→22:14)
[2020-10-02] MEDS: Apixaban 2.5 MG TAB PO SCH ×2 (08:42→22:19)
[2020-10-02] MEDS: Calcium Acetate 667 MG CAP PO SCH ×3 (08:43→16:45)
[2020-10-02] MEDS: predniSONE 20 MG TAB PO SCH (08:43)
[2020-10-02] MEDS: Clopidogrel Bisulfate 75 MG TAB PO SCH (08:43)
[2020-10-02] MEDS: Allopurinol 100 MG TAB PO SCH (08:43)
[2020-10-02] MEDS: Acetaminophen 325 MG TAB PO SCH ×2 (08:43→22:19)
[2020-10-02] MEDS: Senokot S 8.6-50 MG TAB PO SCH ×2 (08:44→22:20)
[2020-10-02] MEDS: HumaLOG 300 UNITS/3 ML VIAL SC PRN ×3 (12:09→22:20)
--- NOTE | 2020-10-02 13:17 | PRG ---
DATE OF SERVICE: 10/02/2020 SUBJECTIVE: Mr. Marc is up in bed. He denies any complaints. His spouse is in the room. Both of them again reiterated that they want him to be DNR. The patient is agreeable. The order was actually placed this weekend after I spoke with the nurse and the patient to whom the patient's had talked to. I again reiterated to spouse that the patient is not safe to go home and he still needs a lot of work and get more strong before he is ready for discharge to home. If he is not medically safe by the time his days ran out, then my recommendation is SNF versus long-term care facility. OBJECTIVE: VITAL SIGNS: He is afebrile, heart rate 60, respirations 18, oxygen saturation 93% on 2 L, and blood pressure 153/69. CARDIOVASCULAR SYSTEM: S1 and S2 plus. RESPIRATORY SYSTEM: Normal vesicular breath sounds. ABDOMEN: Soft, obese, and nontender. Bowel sounds heard in all quadrants. EXTREMITIES: Without cyanosis or clubbing. Trace edema. CENTRAL NERVOUS SYSTEM: Generalized weakness, otherwise nonfocal. LABORATORY DATA: Shows loss blood sugar of 198, 91, 189, 93, and 172. IMPRESSION: 1. Chronic diastolic congestive heart failure. 2. Diabetes mellitus, type 2. 3. Chronic obstructive pulmonary disease. 4. Obstructive sleep apnea, noncompliant with CPAP. 5. Atrial fibrillation. 6. Hypertension. 7. Dyslipidemia. 8. Benign prostatic hyperplasia. 9. Depression. 10. Deconditioning. PLAN: 1. Continue current medications. 2. 1800-calorie heart healthy ADA diet. 3. Accu-Cheks with sliding scale coverage. 4. DVT prophylaxis - he is on Eliquis. 5. Decubitus precaution. 6. Stress ulcer prophylaxis. 7. Continue physical therapy. 8. Discharge planning. 9. Discussed with the patient and spouse. Job ID: [id number]
[2020-10-02] MEDS: Tamsulosin HCl 0.4 MG CAP PO SCH (22:17)
[2020-10-02] MEDS: rOPINIRole HCl 1 MG TAB PO SCH (22:17)
[2020-10-02] MEDS: Atorvastatin Calcium 40 MG TAB PO SCH (22:19)
[2020-10-03] MEDS: Levothyroxine Sodium 25 MCG TAB PO SCH (06:31)
[2020-10-03] MEDS: Levothyroxine Sodium 112 MCG TAB PO SCH (06:31)
[2020-10-03] MEDS: Senokot S 8.6-50 MG TAB PO SCH ×2 (09:19→21:45)
[2020-10-03] MEDS: Acetaminophen 325 MG TAB PO SCH ×2 (09:20→21:45)
[2020-10-03] MEDS: predniSONE 20 MG TAB PO SCH (09:20)
[2020-10-03] MEDS: Furosemide 80 MG TAB PO SCH ×2 (09:20→15:26)
[2020-10-03] MEDS: Clopidogrel Bisulfate 75 MG TAB PO SCH (09:20)
[2020-10-03] MEDS: Dronedarone HCl 400 MG TAB PO SCH ×2 (09:21→17:46)
[2020-10-03] MEDS: Calcium Acetate 667 MG CAP PO SCH ×3 (09:21→17:42)
[2020-10-03] MEDS: Carvedilol 6.25 MG TAB PO SCH ×2 (09:22→17:42)
[2020-10-03] MEDS: Apixaban 2.5 MG TAB PO SCH ×2 (09:23→21:46)
[2020-10-03] MEDS: Allopurinol 100 MG TAB PO SCH (09:23)
[2020-10-03] MEDS: Mometasone/Formoterol 60 PUFF AER INH SCH ×2 (09:24→21:47)
[2020-10-03] MEDS: HumaLOG 300 UNITS/3 ML VIAL SC PRN ×3 (12:04→21:48)
--- NOTE | 2020-10-03 13:14 | PRG ---
DATE OF SERVICE: 10/03/2020 SUBJECTIVE: Mr. Marc is resting in bed. He denies any complaints. He states that he is getting better. OBJECTIVE: VITAL SIGNS: He is afebrile. Heart rate 56, respirations 18, oxygen saturation 96% on room air, blood pressure 116/56. CARDIOVASCULAR: S1, S2 plus. RESPIRATORY: Normal vesicular breath sounds. ABDOMEN: Soft, nontender. Bowel sounds heard in all quadrants. EXTREMITIES: Without cyanosis, clubbing. Trace edema. CENTRAL NERVOUS SYSTEM: Generalized weakness. Blood sugars are 172, 220, 315, 88, and 152. IMPRESSION: 1. Chronic diastolic congestive heart failure. 2. Chronic obstructive pulmonary disease. 3. Obstructive sleep apnea, noncompliant with CPAP. 4. Atrial fibrillation. 5. Hypertension. 6. Dyslipidemia. 7. Diabetes mellitus, type 2. 8. Anxiety and depression and persistent deconditioning. PLAN: 1. Continue current medications. 2. 1800 calorie heart healthy ADA diet. 3. Accu-Cheks with sliding scale coverage. 4. DVT prophylaxis, patient is on Eliquis. 5. Decubitus precautions. 6. Stress ulcer prophylaxis. 7. Physical Therapy. 8. Nutritional support. 9. Encourage p.o. intake. 10. Discharge planning. 11. No family at bedside. Job ID: [id number]
[2020-10-03] MEDS: Tamsulosin HCl 0.4 MG CAP PO SCH (21:46)
[2020-10-03] MEDS: rOPINIRole HCl 1 MG TAB PO SCH (21:46)
[2020-10-03] MEDS: Atorvastatin Calcium 40 MG TAB PO SCH ×2 (21:47→21:48)
[2020-10-04 05:36] LABS: Hemoglobin 8.6 g/dL (14.0-18.0)
[2020-10-04 05:37] LABS: Platelet Count 84 thou/uL (130-400)
[2020-10-04] MEDS: Levothyroxine Sodium 112 MCG TAB PO SCH (06:25)
[2020-10-04] MEDS: Levothyroxine Sodium 25 MCG TAB PO SCH (06:25)
[2020-10-04] MEDS: traMADol HCl 50 MG TAB PO PRN (08:23)
[2020-10-04] MEDS: Calcium Acetate 667 MG CAP PO SCH ×2 (08:25→12:27)
[2020-10-04] MEDS: Carvedilol 6.25 MG TAB PO SCH (08:25)
[2020-10-04] MEDS: Acetaminophen 325 MG TAB PO SCH (08:26)
[2020-10-04] MEDS: Dronedarone HCl 400 MG TAB PO SCH (08:26)
[2020-10-04] MEDS: predniSONE 20 MG TAB PO SCH (08:26)
[2020-10-04] MEDS: Allopurinol 100 MG TAB PO SCH (08:27)
[2020-10-04] MEDS: Apixaban 2.5 MG TAB PO SCH (08:27)
[2020-10-04] MEDS: Clopidogrel Bisulfate 75 MG TAB PO SCH (08:28)
[2020-10-04] MEDS: Furosemide 80 MG TAB PO SCH ×2 (08:28→13:54)
[2020-10-04] MEDS: EPOETIN ALFA-EPBX (ESRD) 10,000 UNIT/ML VIAL SC SCH (08:28)
[2020-10-04] MEDS: Mometasone/Formoterol 60 PUFF AER INH SCH (08:28)
[2020-10-04] MEDS: Senokot S 8.6-50 MG TAB PO SCH (08:29)
[2020-10-04 09:27] VITALS: TEMP 98.9
--- NOTE | 2020-10-04 13:36 | DIS ---
DATE OF ADMISSION: 09/16/2020 DATE OF DISCHARGE: 10/04/2020 PRINCIPAL DIAGNOSIS: Chronic diastolic congestive heart failure. SECONDARY DIAGNOSES: 1. Chronic obstructive pulmonary disease. 2. Chronic hypoxemic respiratory failure. 3. Atrial fibrillation. 4. Obstructive sleep apnea, noncompliant with CPAP. 5. Diabetes mellitus, type 2. 6. Hypertension. 7. Dyslipidemia. 8. Osteoarthritis. 9. Anxiety and depression. 10. Significant deconditioning. COMPLICATIONS: None. ADVERSE REACTIONS: None. PROCEDURES: None. CONSULTATIONS: Physical Therapy and Occupational Therapy. HOSPITAL COURSE: The patient was admitted after being in the hospital with shortness of breath. He was diagnosed with acute on chronic diastolic congestive heart failure. He was sent to us for therapy. The patient unfortunately was not participating with therapy much. He stated that he could not do it. He was very depressed. I did start him on sertraline 50 mg and have increased it to 100 mg with no significant change. He also is very noncompliant with his CPAP. He is very adamant about going home. He states that he does not want to go to a nursing facility. He has chosen that he does not want any further aggressive treatment and he wants to be on hospice. Family chose [facility]. I advised him that his hospice management will be by either his hospice MD or his PCP. I will just send initial request for Hospice evaluation. He obviously does not need any prescriptions. OBJECTIVE: VITAL SIGNS: On the day of discharge, he is afebrile, heart rate 98, respirations 20, oxygen saturation 96% on 2 L, blood pressure 116/68. CARDIOVASCULAR SYSTEM: S1 and S2 plus. RESPIRATORY SYSTEM: Normal vesicular breath sounds. ABDOMEN: Soft and nontender. Bowel sounds heard in all quadrants. EXTREMITIES: Without cyanosis or clubbing. CENTRAL NERVOUS SYSTEM: Generalized weakness, otherwise nonfocal LABORATORY VALUES: Hemoglobin and hematocrit are 8.6 and 27.4. Creatinine is 2.27. Blood sugars are 300, 82, and 188. PLAN: The patient wants to discharge home on hospice. If he is going to stop all of his medications and he is not going to seek any aggressive treatment, I could see him qualifying for hospice. Discussed with the patient and spouse if Hospice feels that he is qualified, they will accept him and admit him and hospice MD will be managing all of his care. For full details, please see chart. Job ID: [id number]
[2020-10-04 14:58] VITALS: BP 101/50
== END 2020-10-04 16:48 | disposition hospice, home (50) | DRG 291 ==
LOC: NAV ACUTE 13:57
PROVIDERS: ADMIT Internal Medicine; ATTEND Internal Medicine
DX: I13.0 Hypertensive heart and chronic kidney disease with heart failure and stage 1 through stage 4 chronic kidney disease, or unspecified chronic kidney disease (principal); I50.33 Acute on chronic diastolic (congestive) heart failure; Z66 Do not resuscitate; J96.21 Acute and chronic respiratory failure with hypoxia; N18.4 Chronic kidney disease, stage 4 (severe); I25.5 Ischemic cardiomyopathy; M10.9 Gout, unspecified; G47.33 Obstructive sleep apnea (adult) (pediatric); J44.9 Chronic obstructive pulmonary disease, unspecified; E03.9 Hypothyroidism, unspecified; K21.9 Gastro-esophageal reflux disease without esophagitis; F41.9 Anxiety disorder, unspecified; I48.0 Paroxysmal atrial fibrillation; R53.81 Other malaise; F32.9 Major depressive disorder, single episode, unspecified; E11.22 Type 2 diabetes mellitus with diabetic chronic kidney disease; M19.90 Unspecified osteoarthritis, unspecified site; N40.0 Benign prostatic hyperplasia without lower urinary tract symptoms; D63.1 Anemia in chronic kidney disease; E66.01 Morbid (severe) obesity due to excess calories; I25.10 Atherosclerotic heart disease of native coronary artery without angina pectoris; E78.5 Hyperlipidemia, unspecified; Z88.8 Allergy status to other drugs, medicaments and biological substances; Z79.899 Other long term (current) drug therapy; Z68.33 Body mass index [BMI] 33.0-33.9, adult; Z91.19 Patient's noncompliance with other medical treatment and regimen; Z99.81 Dependence on supplemental oxygen
CPT/HCPCS: 36415; 36416; 71045; 80048; 82565; 85014; 85018; 85025; 85049; 94664; J7512; Q0169; Q5105